=== PATIENT | female | born 1935 | race Caucasian/White ===

== ENCOUNTER → 2017-06-23 | Emergency (ER) | payer MEDICARE, OTHER, SELFPAY | PROVIDERS: Emergency Provider Emergency Medicine; Family Provider Nurse Practitioner Family; Visit Provider Emergency Medicine | DX: R11.2 Nausea with vomiting, unspecified (principal); E86.0 Dehydration; N28.9 Disorder of kidney and ureter, unspecified; J44.9 Chronic obstructive pulmonary disease, unspecified; I10 Essential (primary) hypertension; E78.5 Hyperlipidemia, unspecified; I50.9 Heart failure, unspecified; Z88.6 Allergy status to analgesic agent | CPT/HCPCS: 74022; 80053; 83735; 85025; 96361; 96365; 96366; 99284 ==

== ENCOUNTER 2017-07-02 11:30 | Inpatient (IN) | payer MEDICARE, MEDICAID, SELFPAY ==
[2017-07-02] VITALS (8 sets, daily range): BP systolic 101–147; BP diastolic 52–85; PULSE 65–128; RESP 16–23; TEMP 36.2–37.1; O2SAT 85–93; BMI 50.0; BMI 50.5
--- NOTE | 2017-07-02 11:45 | XR_ITS ---
XR chest portable HISTORY: Shortness of air, cough ITS.REASON: SOA ORDERING PHYSICIAN: Jacqui Bailey MD PATIENT AGE: 81 years COMPARISON: 03/10/2016 FINDINGS: There is diffuse bilateral consolidation in the mid and lower lung zones consistent with bilateral pneumonia. There is a somewhat nodular appearance of the right suprahilar region which may be related to pneumonia. Follow-up however is recommended mass cannot be excluded. Normal heart size. No obvious CHF. IMPRESSION: Bilateral pneumonia. Recommend follow until clear
--- NOTE | 2017-07-02 12:05 | HMH.EDSOB ---
ED Disposition Clinical Impression: Pneumonia Qualifiers: Pneumonia type: due to unspecified organism Laterality: bilateral Lung location: unspecified part of lung Qualified Code(s): J18.9 - Pneumonia, unspecified organism Disposition: Admitted As Inpatient Condition on Discharge: Good Referrals: Balwinder Scales APRN [Primary Care Provider] - - Critical Care Critical Care Time: No Attestation: On 07/02/17, the high probability of a clinically significant, sudden or life threatening deterioration of the following system(s) required my full and direct attention, intervention and personal management. The time I documented below is in addition to time spent performing reported procedures but includes the following listed in this critical care notation. Medical Decision Making Vital Signs: 07/02/17 11:36 07/02/17 12:26 07/02/17 12:38 Temperature 98.1 F Temperature Source Oral Pulse Rate 121 H 125 H Pulse Rate [Right Brachial] 65 Respiratory Rate 16 Blood Pressure [Right Arm] 101/63 Blood Pressure Mean [Right Arm] 75 Blood Pressure Source [Right Arm] Automatic Cuff Blood Pressure Position [Right Arm] Sitting 02 Sat by Pulse Oximetry 93 L Oxygen Delivery Method Nasal Cannula Oxygen Flow Rate (LPM) 2 - Lab Data Lab results reviewed: Yes: I reviewed the patient's lab results. Lab Results 07/02/17 11:45: WBC 3.0 L, RBC 3.61 L, Hgb 10.3 L, Hct 33.5 L, MCV 92.9, MCH 28.4, MCHC 30.6 L, RDW 15.5, Plt Count 83 L, MPV 9.4, Neut % (Auto) 49.1, Lymph % (Auto) 44.3, [place] % (Auto) 4.2, Eos % (Auto) 2.3, Baso % (Auto) 0.2, Neut # (Auto) 1.5 L, Lymph # (Auto) 1.3, [place] # (Auto) 0.1, Eos # (Auto) 0.1, Baso # (Auto) 0.0 07/02/17 11:45: Sodium 143, Potassium 3.4 L, Chloride 106, Carbon Dioxide 37 H, Anion Gap 3.4 L, BUN 17, Creatinine 0.99, Estimated Creat Clear 43, Estimated GFR 54 L, Est GFR ( Amer) > 60, Glucose 132 H, Calcium 8.4 L, Total Bilirubin 0.4, AST 22, ALT 15, Alkaline Phosphatase 111, Total Creatine Kinase 54, CK-MB (CK-2) 0.8, CK-MB (CK-2) Rel Index 1.5, Troponin I < 0.02, Total Protein 6.2 L, Albumin 2.8 L, Globulin 3.4 H, Albumin/Globulin Ratio 0.8 L 07/02/17 11:45: Lactic Acid 2.6 H 07/02/17 11:45: B-Natriuretic Peptide 168 H Result diagrams: 07/02/17 11:45 07/02/17 11:45 Orders (Tests/Meds): ED MEDICATIONS Discontinued Medications Generic Name Dose Route Start Last Admin Trade Name Freq PRN Reason Stop Dose Admin Albuterol/Ipratropium 3 ml 07/02/17 12:23 07/02/17 12:24 Duoneb 3ml Neb IH 07/02/17 12:24 3 ml ONCE ONE Administration Ceftriaxone Sodium 1 gm/ 50 mls @ 100 mls/hr 07/02/17 12:18 07/02/17 12:21 Sodium Chloride IV 07/02/17 12:47 100 mls/hr ONCE ONE Administration Methylprednisolone Sodium Succinate 125 mg 07/02/17 12:18 07/02/17 12:21 Solu-Medrol 125mg/2ml Vial IV 07/02/17 12:19 125 mg ONCE ONE Administration ORDERS Category Date Time Status Blood Culture Stat Micro 07/02/17 11:45 Received Sputum Culture & Gram Stain Stat Micro 07/02/17 12:35 Received - Radiology Data #2 Image(s): Chest Image Reviewed: Yes I reviewed the patient's radiology results, Yes I have reviewed radiologist's interpretation Preliminary Findings: Abnormal Bilateral middle and lower lobe infiltrates. No congestion. - ECG Data Tracing #1 Afib with motion trmor; borderline RBBB; nonspecific ST changes/strain laterally; QTc 416. - Physician Consults Physician Consulted: Balwinder Scales/Jacquelin Reason -: Admission Comment/Response: Admit to Dr. Roper per my d/w Balwinder Scales HOSPICE ART THERAPIST - Blu Inquiry Pt receiving controlled substance: No Resp/SOB HPI - General Chief Complaint: Shortness of Breath/Dyspnea Stated Complaint: SOA Time Seen by Provider: 07/02/17 12:06 Mode of Arrival: EMS Limitations: No Limitations Description of Symptoms (Recalled from ER Triage Doc. by RN): SOA - History of Present Illness Ox
[2017-07-02 12:10] LABS: Basophils % 0.2 % (0.1-2.0); Eosinophils # 0.1 K/mm3 (0.0-0.4); Eosinophils % 2.3 % (0.1-12.0); Hematocrit 33.5 % (37.0-47.0); Hemoglobin 10.3 g/dL (12.2-16.2); Lymphocytes # 1.3 K/mm3 (0.7-4.5); Lymphocytes % 44.3 K/mm3 (10-50); Mean Corpuscular HGB Conc 30.6 g/dL (31.8-35.4); Mean Corpuscular Hemoglobin 28.4 pg (27.0-31.2); Mean Corpuscular Volume 92.9 fl (81-99); Mean Platelet Volume 9.4 fl (7.4-10.4); Monocytes # 0.1 K/mm3 (0.1-1.0); Monocytes % 4.2 % (1.7-9.3); Neutrophils # 1.5 K/mm3 (1.8-7.8); Neutrophils % 49.1 % (37.0-80.0); Platelet Count 83 K/mm3 (142-424); Red Blood Count 3.61 M/mm3 (4.20-5.40); Red Cell Distribution Width 15.5 % (11.5-17.5)
--- NOTE | 2017-07-02 12:14 | ED_ITS ---
ED Disposition Clinical Impression: Pneumonia Qualifiers: Pneumonia type: due to unspecified organism Laterality: bilateral Lung location : unspecified part of lung Qualified Code(s): J18.9 - Pneumonia, unspecified organism Disposition: Admitted As Inpatient Condition on Discharge: Good Referrals: Balwinder Scales APRN [Primary Care Provider] - - Critical Care Critical Care Time: No Attestation: On 07/02/17, the high probability of a clinically significant, sudden or life threatening deterioration of the following system(s) required my full and direct attention, intervention and personal management. The time I documented below is in addition to time spent performing reported procedures but includes the following listed in this critical care notation. Medical Decision Making Vital Signs: 07/02/17 11:36 07/02/17 12:26 07/02/17 12:38 Temperature 98.1 F Temperature Source Oral Pulse Rate 121 H 125 H Pulse Rate [Right Brachial] 65 Respiratory Rate 16 Blood Pressure [Right Arm] 101/63 Blood Pressure Mean [Right Arm] 75 Blood Pressure Source [Right Arm] Automatic Cuff Blood Pressure Position [Right Arm] Sitting 02 Sat by Pulse Oximetry 93 L Oxygen Delivery Method Nasal Cannula Oxygen Flow Rate (LPM) 2 - Lab Data Lab results reviewed: Yes: I reviewed the patient's lab results. Lab Results 07/02/17 11:45: WBC 3.0 L, RBC 3.61 L, Hgb 10.3 L, Hct 33.5 L, MCV 92.9, MCH 28.4, MCHC 30.6 L, RDW 15.5, Plt Count 83 L, MPV 9.4, Neut % (Auto) 49.1, Lymph % (Auto) 44.3, [place] % (Auto) 4.2, Eos % (Auto) 2.3, Baso % (Auto) 0.2, Neut # ( Auto) 1.5 L, Lymph # (Auto) 1.3, [place] # (Auto) 0.1, Eos # (Auto) 0.1, Baso # ( Auto) 0.0 07/02/17 11:45: Sodium 143, Potassium 3.4 L, Chloride 106, Carbon Dioxide 37 H, Anion Gap 3.4 L, BUN 17, Creatinine 0.99, Estimated Creat Clear 43, Estimated GFR 54 L, Est GFR ( Amer) > 60, Glucose 132 H, Calcium 8.4 L, Total Bilirubin 0.4, AST 22, ALT 15, Alkaline Phosphatase 111, Total Creatine Kinase 54, CK-MB (CK-2) 0.8, CK-MB (CK-2) Rel Index 1.5, Troponin I < 0.02, Total Protein 6.2 L, Albumin 2.8 L, Globulin 3.4 H, Albumin/Globulin Ratio 0.8 L 07/02/17 11:45: Lactic Acid 2.6 H 07/02/17 11:45: B-Natriuretic Peptide 168 H Result diagrams: 07/02/17 11:45 07/02/17 11:45 Orders (Tests/Meds): ED MEDICATIONS Discontinued Medications Generic Name Dose Route Start Last Admin Trade Name Freq PRN Reason Stop Dose Admin Albuterol/Ipratropium 3 ml 07/02/17 12:23 07/02/17 12:24 Duoneb 3ml Neb IH 07/02/17 12:24 3 ml ONCE ONE Administration Ceftriaxone Sodium 1 gm/ 50 mls @ 100 mls/hr 07/02/17 12:18 07/02/17 12:21 Sodium Chloride IV 07/02/17 12:47 100 mls/hr ONCE ONE Administration Methylprednisolone Sodium Succinate 125 mg 07/02/17 12:18 07/02/17 12:21 Solu-Medrol 125mg/2ml Vial IV 07/02/17 12:19 125 mg ONCE ONE Administration ORDERS Category Date Time Status Blood Culture Stat Micro 07/02/17 11:45 Received Sputum Culture & Gram Stain Stat Micro 07/02/17 12:35 Received - Radiology Data #2 Image(s): Chest Image Reviewed: Yes I reviewed the patient's radiology results, Yes I have reviewed radiologist's interpretation Preliminary Findings: Abnormal Bilateral middle and lower lobe infiltrates. N
[2017-07-02 12:25] LABS: Lactic Acid 2.6 mmol/L (0.4-2.0)
[2017-07-02 12:26] LABS: Reflex Lactic Add Lactic Reflex
[2017-07-02 12:33] LABS: Alanine Aminotransferase 15 U/L (12-78); Albumin Level 2.8 gm/dL (3.4-5.0); Albumin/Globulin Ratio 0.8 (1.1-1.8); Alkaline Phosphatase 111 U/L (46-116); Anion Gap 3.4 mEq/L (5-15); Aspartate Amino Transferase 22 U/L (15-37); Bilirubin,Total 0.4 mg/dL (0.2-1.0); Blood Urea Nitrogen 17 mg/dL (7-18); CKMB Relative Index 1.5 U/L (0-4.0); Calcium 8.4 mg/dL (8.5-10.1); Carbon Dioxide 37 mmol/L (21.0-32.0); Chloride 106 mmol/L (98-107); Creatine Kinase 54 U/L (26-192); Creatine Kinase MB 0.8 mg/ml (0.0-3.6); Creatinine Clearance Estimated 43 mg/ml (0-300); Creatinine,Serum 0.99 mg/dL (0.55-1.02); Estimated Glomerular Filt Rate 54 ml/min (>60); GFR (African American) > 60 ML/MIN (>60); Globulin 3.4 gm/dl (1.3-3.2); Glucose 132 mg/dL (74-106); Potassium 3.4 mmoL/L (3.5-5.1); Sodium 143 mmol/L (136-145); Total Protein,Serum 6.2 gm/dL (6.4-8.2); Troponin I < 0.02 ng/ml (0.00-0.06)
[2017-07-02 16:13] LABS: Lactic Acid Follow Up (RFLX 1) 2.6 (0.4-2.0)
[2017-07-02 16:54] LABS: Reflex Lactic (2 hrs) No Lactic Reflex
--- NOTE | 2017-07-02 19:15 | PC.NURSE ---
REPORT RECEIVED FROM SON; PT FULL CODE
[2017-07-03] VITALS (12 sets, daily range): BP systolic 102–137; BP diastolic 54–71; PULSE 77–105; RESP 20–22; TEMP 36.2–37.7; O2SAT 95–100
--- NOTE | 2017-07-03 05:14 | PC.NURSE ---
PT ALERT AND ORIENTED. STATES NON-PRODUCTIVE COUGH. CALLS OUT FOR ASSIST. BECOMES SOA ON EXERTION. IV TO SALINE LOCK, PATENT. IV STEROIDS. PT ON XARELTO. ONCE PT FELL ASLEEP, SLEPT LONG INTERVALS. PT STABLE. WILL CONTINUE TO MONITOR. REPORT TO BE GIVEN TO ONCOMING NURSE.
--- NOTE | 2017-07-03 07:24 | PC.NURSE ---
Report given to Susu aCsillas WC/SRNA
[2017-07-03 07:32] LABS: Anion Gap 7.6 mEq/L (5-15); Blood Urea Nitrogen 19 mg/dL (7-18); Carbon Dioxide 34 mmol/L (21.0-32.0); Chloride 105 mmol/L (98-107); Creatinine Clearance Estimated 39 mL/min (0-300); Creatinine,Serum 1.09 mg/dL (0.55-1.02); Estimated Glomerular Filt Rate 48 ml/min (>60); GFR (African American) 59 ML/MIN (>60); Potassium 4.6 mmoL/L (3.5-5.1); Sodium 142 mmol/L (136-145)
[2017-07-03 07:33] LABS: Glucose 165 mg/dL (74-106)
[2017-07-03 08:04] LABS: Basophils % 0.3 % (0.1-2.0); Eosinophils % 1.5 % (0.1-12.0); Hemoglobin 10.4 g/dL (12.2-16.2); Lymphocytes # 0.3 K/mm3 (0.7-4.5); Mean Corpuscular HGB Conc 33.7 g/dL (31.8-35.4); Mean Corpuscular Hemoglobin 31.2 pg (27.0-31.2); Mean Corpuscular Volume 92.6 fl (81-99); Mean Platelet Volume 9.1 fl (7.4-10.4); Monocytes # 0.1 K/mm3 (0.1-1.0); Monocytes % 4.5 % (1.7-9.3); Neutrophils # 0.7 K/mm3 (1.8-7.8); Neutrophils % 69.7 % (37.0-80.0); Platelet Count 91 K/mm3 (142-424); Red Blood Count 3.35 M/mm3 (4.20-5.40); Red Cell Distribution Width 15.9 % (11.5-17.5); White Blood Count 1.1 K/mm3 (4.8-10.8)
--- NOTE | 2017-07-03 11:16 | HMH.HP ---
*Admission Date: 07/02/17 *Chief complaint: sob *History of present illness: this wf was seen in the ed with bilat cap with sob and was admitted for iv abx and fluids and needs o2 - pt with prod cough with no hemoptysis [facility] History I have reviewed the patient's past medical history: Yes - *Social History Educational Level: Attended College Alcohol Intake: never - Psychiatric History Expresses thoughts of harming self/others: None Suicide Plan Description: No Plan Review of Systems - Review of Systems Review of systems:: pertinent systems reviewed and negative unless documented below - Constitutional Reports fever(s), Reports lack of energy, Reports malaise, Reports weakness - Eyes Denies change in vision - ENT Reports dry mouth - *Cardiovascular Reports shortness of breath with activity, Denies chest pain at rest - *Respiratory Reports cough, Reports shortness of breath, Denies coughing up blood - *Gastrointestinal Denies abdominal pain - *Musculoskeletal Reports joint pain - Integumentary/Breasts Denies rash - *Neurologic Reports abnormal walking, Reports weakness, Denies seizure-like activity - Psychiatric Denies memory loss Meds Home Medications Medication Instructions Recorded Confirmed Type Albuterol Sulfate [Albuterol 1 vial IH Q6HP PRN 07/02/17 07/02/17 History 0.083% 2.5mg/3mL neb] Cholecalciferol (Vitamin D3) 50,000 unit PO DAILY 07/02/17 07/02/17 History [Vitamin D3 50,000 unit Cap] Fluoxetine HCl 40 mg PO DAILY 07/02/17 07/02/17 History Folic Acid [Folic Acid 1mg tablet] 1 mg PO DAILY 07/02/17 07/02/17 History Furosemide [Furosemide 80mg Tab] 80 mg PO DAILY 07/02/17 07/02/17 History Gabapentin [Gabapentin 300mg Cap] 300 mg PO TID 07/02/17 07/02/17 History Isosorbide Dinitrate 30 mg PO BID 07/02/17 07/02/17 History Levothyroxine Sodium 25 mcg PO DAILY 07/02/17 07/02/17 History [Levothyroxine 25mcg (0.025mg) Tab] Lisinopril [Lisinopril 20mg Tab] 20 mg PO DAILY 07/02/17 07/02/17 History Nystatin [Nystop] 10,000 pow TOPICAL BID 07/02/17 07/02/17 History Omeprazole [Omeprazole 20mg 20 mg PO DAILY 07/02/17 07/02/17 History Capsule] Rivaroxaban [Xarelto 10mg tablet] 15 mg PO DAILY 07/02/17 07/02/17 History Simvastatin [Zocor] 20 mg PO HS 07/02/17 07/02/17 History Tramadol HCl [Ultram 50mg 50 mg PO TIDP PRN 07/02/17 07/02/17 History tablet] Allergies Allergy/AdvReac Type Severity Reaction Status Date / Time morphine [MORPHINE] Allergy Unknown Verified 07/02/17 12:20 Exam Vital signs and Labs for Last 24 Hours: Temp Pulse Resp BP Pulse Ox 97.2 F L 97 H 22 134/64 100 07/03/17 08:00 07/03/17 08:00 07/03/17 08:00 07/03/17 08:00 07/03/17 08:00 Short CBC 07/03/17 Range/Units 07:00 WBC 1.1 L* D (4.8-10.8) K/mm3 Hgb 10.4 L (12.2-16.2) g/dL Hct 31.0 L (37.0-47.0) % Plt Count 91 L (142-424) K/mm3 BMP 07/03/17 07:00 Sodium 142 Potassium 4.6 D Chloride 105 Carbon Dioxide 34 H BUN 19 H Creatinine 1.09 H Glucose 165 H D I & O for Last 24 hours: Intake & Output 06/30/17 07/01/17 07/02/17 07/03/17 11:59 11:59 11:59 11:59 Intake Total 740 / 740 Output Total 650 / 650 Balance 90 / 90 no acute distress, obese - *Routine HEENT Exam Head: Present: normocephalic Eye: Present: EOMI, cataracts (chronic vision loss lt eye) ENT: Present: mucous membranes dry - *Routine Respiratory Exam Present: decreased breath sounds. Absent: respiratory distress - *Routine Cardiovascular Exam Present: murmur, S4 - *Routine Abdominal Exam Present: soft - *Routine Extremities Exam Present: edema. Absent: Emile's sign - *Routine Skin Exam Absent: rash - Routine Psychiatric Exam Present: normal affect, cooperative, good insight H&P: Result - Labs Labs: Short CBC 07/03/17 Range/Units 07:00 WBC 1.1 L* D (4.8-10.8) K/mm3 Hgb 10.4 L (12.2-16.2) g/dL Hct
--- NOTE | 2017-07-03 11:39 | HMH.PHAVTE ---
[facility] Pharmacy VTE Monitoring - Patient Demographics Admission date: 07/03/17 Report Date: 07/03/17 Time: 11:53 Allergies/Adverse Reactions: morphine [MORPHINE] Allergy (Unknown, Verified 07/02/17 12:20) Height: 1.68 m Weight: 143.392 kg Patient Problems: Current Active Problems Pneumonia (Acute) - VTE Risk Labs: VTE Related Lab Results Hgb 10.4 g/dL (12.2-16.2) L 07/03/17 07:00 Hct 31.0 % (37.0-47.0) L 07/03/17 07:00 Plt Count 91 K/mm3 (142-424) L 07/03/17 07:00 BUN 19 mg/dL (7-18) H 07/03/17 07:00 Creatinine 1.09 mg/dL (0.55-1.02) H 07/03/17 07:00 Estimated Creat Clear 39 mL/min (0-300) 07/03/17 07:00 - Prophylaxis Types of VTE Prophylaxis: Pharmacological Location of Applied Device: Not Applicable Pharmacologic Type: Other (XARELTO)
--- NOTE | 2017-07-03 11:44 | P.HP_ITS ---
*Admission Date: 07/02/17 *Chief complaint: sob *History of present illness: this wf was seen in the ed with bilat cap with sob and was admitted for iv abx and fluids and needs o2 - pt with prod cough with no hemoptysis [facility] History I have reviewed the patient's past medical history: Yes - *Social History Educational Level: Attended College Alcohol Intake: never - Psychiatric History Expresses thoughts of harming self/others: None Suicide Plan Description: No Plan Review of Systems - Review of Systems Review of systems:: pertinent systems reviewed and negative unless documented below - Constitutional Reports fever(s), Reports lack of energy, Reports malaise, Reports weakness - Eyes Denies change in vision - ENT Reports dry mouth - *Cardiovascular Reports shortness of breath with activity, Denies chest pain at rest - *Respiratory Reports cough, Reports shortness of breath, Denies coughing up blood - *Gastrointestinal Denies abdominal pain - *Musculoskeletal Reports joint pain - Integumentary/Breasts Denies rash - *Neurologic Reports abnormal walking, Reports weakness, Denies seizure-like activity - Psychiatric Denies memory loss Meds Home Medications Medication Instructions Recorded Confirmed Type Albuterol Sulfate [Albuterol 1 vial IH Q6HP PRN 07/02/17 07/02/17 History 0.083% 2.5mg/3mL neb] Cholecalciferol (Vitamin D3) 50,000 unit PO DAILY 07/02/17 07/02/17 History [Vitamin D3 50,000 unit Cap] Fluoxetine HCl 40 mg PO DAILY 07/02/17 07/02/17 History Folic Acid [Folic Acid 1mg tablet] 1 mg PO DAILY 07/02/17 07/02/17 History Furosemide [Furosemide 80mg Tab] 80 mg PO DAILY 07/02/17 07/02/17 History Gabapentin [Gabapentin 300mg Cap] 300 mg PO TID 07/02/17 07/02/17 History Isosorbide Dinitrate 30 mg PO BID 07/02/17 07/02/17 History Levothyroxine Sodium 25 mcg PO DAILY 07/02/17 07/02/17 History [Levothyroxine 25mcg (0.025mg) Tab] Lisinopril [Lisinopril 20mg Tab] 20 mg PO DAILY 07/02/17 07/02/17 History Nystatin [Nystop] 10,000 pow TOPICAL BID 07/02/17 07/02/17 History Omeprazole [Omeprazole 20mg 20 mg PO DAILY 07/02/17 07/02/17 History Capsule] Rivaroxaban [Xarelto 10mg tablet] 15 mg PO DAILY 07/02/17 07/02/17 History Simvastatin [Zocor] 20 mg PO HS 07/02/17 07/02/17 History Tramadol HCl [Ultram 50mg 50 mg PO TIDP PRN 07/02/17 07/02/17 History tablet] Allergies Allergy/AdvReac Type Severity Reaction Status Date / Time morphine [MORPHINE] Allergy Unknown Verified 07/02/17 12:20 Exam Vital signs and Labs for Last 24 Hours: Temp Pulse Resp BP Pulse Ox 97.2 F L 97 H 22 134/64 100 07/03/17 08:00 07/03/17 08:00 07/03/17 08:00 07/03/17 08:00 07/03/17 08:00 Short CBC 07/03/17 Range/Units 07:00 WBC 1.1 L* D (4.8-10.8) K/mm3 Hgb 10.4 L (12.2-16.2) g/dL Hct 31.0 L (37.0-47.0) % Plt Count 91 L (142-424) K/mm3 BMP 07/03/17 07:00 Sodium 142 Potassium 4.6 D Chloride 105 Carbon Dioxide 34 H BUN 19 H Creatinine 1.09 H Glucose 165 H D I & O for Last 24 hours: Intake & Output 06/30/17 07/01/17 07/02/1707/03
--- NOTE | 2017-07-03 11:53 | P.CONPHA_ITS ---
[facility] Pharmacy VTE Monitoring - Patient Demographics Admission date: 07/03/17 Report Date: 07/03/17 Time: 11:53 Allergies/Adverse Reactions: morphine [MORPHINE] Allergy (Unknown, Verified 07/02/17 12:20) Height: 1.68 m Weight: 143.392 kg Patient Problems: Current Active Problems Pneumonia (Acute) - VTE Risk Labs: VTE Related Lab Results Hgb 10.4 g/dL (12.2-16.2) L 07/03/17 07:00 Hct 31.0 % (37.0-47.0) L 07/03/17 07:00 Plt Count 91 K/mm3 (142-424) L 07/03/17 07:00 BUN 19 mg/dL (7-18) H 07/03/17 07:00 Creatinine 1.09 mg/dL (0.55-1.02) H 07/03/17 07:00 Estimated Creat Clear 39 mL/min (0-300) 07/03/17 07:00 - Prophylaxis Types of VTE Prophylaxis: Pharmacological Location of Applied Device: Not Applicable Pharmacologic Type: Other (XARELTO)
[2017-07-03 15:44] LABS: Microscopic, Urine URINE MICROSCOPIC (MICROSCOPIC)
[2017-07-03 15:45] LABS: Appearance,Urine SL CLOUDY (Clear); Bilirubin,Urine Negative (Negative); Blood, Urine Negative (Negative); Color,Urine YELLOW (Yellow); Glucose,Urine (UA) Negative (Negative); Ketones,Urine TRACE (Negative); Leukocyte Esterase,Urine Negative (Negative); Nitrate,Urine Negative (Negative); PH,Urine 5.5 (5.0-8.5); Protein,Urine Negative (Negative); Specific Gravity, Urine 1.025 (1.005-1.030); Urobilinogen,Urine 0.2 EU/dl (0.2)
--- NOTE | 2017-07-03 15:51 | PC.NURSE ---
FRANKLIN CATHETER LOT NUMBER- [id number]
[2017-07-03 15:59] LABS: Bacteria,Urine 4+ /lpf; Mucus,Urine 4+ /lpf; Squamous Epithelial Cell,Urine Occasional #/hpf (0-5)
--- NOTE | 2017-07-03 20:24 | PC.NURSE ---
NURSE NOTIFIED OF PTS TEMP
[2017-07-04] VITALS (15 sets, daily range): BP systolic 97–184; BP diastolic 47–90; PULSE 20–103; RESP 20–22; TEMP 36.1–36.8; O2SAT 93–97
--- NOTE | 2017-07-04 06:53 | PC.NURSE ---
PT STATED HER DAUGHTER WILL HELP HER WITH A BAT TODAY. NURSE NOTIFIED
--- NOTE | 2017-07-04 07:26 | PC.NURSE ---
REPORT GIVEN TO Susu VERDE WC/SRNA
--- NOTE | 2017-07-04 09:16 | PC.NURSE ---
NO COMPLAINTS STATED. 2LNC TOLERATED WELL. FARNKLIN CATHETER NOTED IN PLACE, PATENT AND DRAINING CLEAR/YELLOW URINE, DORIS AREA CDI WITH NO S/S OF INFECTION. SBA WITH TRANSER/AMBULATION. VSS. WILL CONTINUE TO MONITOR.
--- NOTE | 2017-07-04 09:46 | HMH.ACPN ---
Internal Medicine - PN: Subj *Date: 07/04/17 *Time: 09:46 Exam Vital signs and Labs for Last 24 Hours: Temp Pulse Resp BP Pulse Ox 97.8 F 20 L 20 146/61 96 07/04/17 08:37 07/04/17 08:37 07/04/17 08:37 07/04/17 08:37 07/04/17 08:37 Laboratory Results - last 24 hr 07/03/17 13:45: Urine Color Yellow, Urine Appearance Sl cloudy, Urine pH 5.5, Ur Specific [place] 1.025, Urine Protein Negative, Urine Glucose (UA) Negative, Urine Ketones Trace, Urine Blood Negative, Urine Nitrate Negative, Urine Bilirubin Negative, Urine Urobilinogen 0.2, Ur Leukocyte Esterase Negative, Urine WBC 3-5, Ur Squamous Epith Cells Occasional, Urine Bacteria 4+, Urine Mucus 4+ I & O for Last 24 hours: Intake & Output 07/01/17 07/02/17 07/03/17 07/04/17 11:59 11:59 11:59 11:59 Intake Total 740 / 740 720 / 720 Output Total 650 / 650 1650 / 1650 Balance 90 / 90 -930 / -930 Microbiology Reports for the Last 24 Hours: Microbiology 07/03/17 13:45 Urine,Catheterized Urine Culture - Preliminary NO GROWTH AFTER 24 HOURS - *Routine HEENT Exam Head: Present: normocephalic Eye: Present: PERRL ENT: Present: mucous membranes moist - *Routine Neck Exam Present: supple, full ROM - *Routine Respiratory Exam Present: wheezes, diminished air movement - *Routine Cardiovascular Exam Present: RRR - *Routine Abdominal Exam Present: soft, normoactive bowel sounds - *Routine Neurological Exam Present: alert, oriented X3 Assessment and Plan (1) CAP (community acquired pneumonia) Current visit: Yes Status: Acute Qualifiers: Laterality: unspecified laterality Qualified Code(s): J18.9 - Pneumonia, unspecified organism Category: Medical Code(s): J18.9 - Pneumonia, unspecified organism - Assessment and plan all Dx Assessment and Plan for all problems:: contiune care
[2017-07-05] VITALS (11 sets, daily range): BP systolic 121–136; BP diastolic 53–78; PULSE 85–107; RESP 20–22; TEMP 36.4–36.9; O2SAT 87–95; BMI 50.1
--- NOTE | 2017-07-05 03:50 | PC.NURSE ---
NO COMPLAINTS STATED. 4LNC TOLERATED WELL. SCATTERED WHEEZING AND RHONCHI ON AUSCULTATION OF LUNG SOUNDS. FRANKLIN CATHETER NOTED PATENT AND DRAINING CLEAR/YELLOW URINE. DORIS AREA CDI, WITH NO S/S OF INFECTION NOTED. BILAT FEET NOTED WITH PURPLE COLORATION, COOL PER PALPATION AND WITH +1 PEDAL PULSES, PT WAS ABLE TO MOVE FEET. PT STATED YEAH I KNOW THEY HAVE BEEN LIKE THAT FOR A WHILE, THE DOCTOR TOLD ME THAT I HAVE POOR BLOOD FLOW IN MY LEGS AND FEET. VSS. WILL CONTINUE TO MONITOR.
--- NOTE | 2017-07-05 04:34 | PC.NURSE ---
TOLERATED REVERSE ISOLATION WELL.
[2017-07-05 07:03] LABS: Hemoglobin 9.3 g/dL (12.2-16.2); Red Blood Count 3.27 M/mm3 (4.20-5.40); White Blood Count 3.3 K/mm3 (4.8-10.8)
[2017-07-05 07:04] LABS: Basophils % 0.1 % (0.1-2.0); Eosinophils % 0.3 % (0.1-12.0); Hematocrit 29.9 % (37.0-47.0); Lymphocytes # 0.5 K/mm3 (0.7-4.5); Lymphocytes % 14.6 K/mm3 (10-50); Mean Corpuscular HGB Conc 31.1 g/dL (31.8-35.4); Mean Corpuscular Hemoglobin 28.5 pg (27.0-31.2); Mean Corpuscular Volume 91.4 fl (81-99); Monocytes # 0.2 K/mm3 (0.1-1.0); Monocytes % 4.6 % (1.7-9.3); Neutrophils # 2.6 K/mm3 (1.8-7.8); Neutrophils % 80.4 % (37.0-80.0); Platelet Count 85 K/mm3 (142-424); Red Cell Distribution Width 15.1 % (11.5-17.5)
--- NOTE | 2017-07-05 07:21 | PC.NURSE ---
REPORT GIVEN TO Dyllan OLIVEIRA
[2017-07-05 07:22] LABS: Alanine Aminotransferase 41 U/L (12-78); Albumin Level 2.6 gm/dL (3.4-5.0); Albumin/Globulin Ratio 0.7 (1.1-1.8); Alkaline Phosphatase 84 U/L (46-116); Anion Gap 7.8 mEq/L (5-15); Aspartate Amino Transferase 55 U/L (15-37); Bilirubin,Total 0.3 mg/dL (0.2-1.0); Blood Urea Nitrogen 28 mg/dL (7-18); Calcium 9.1 mg/dL (8.5-10.1); Carbon Dioxide 38 mmol/L (21.0-32.0); Chloride 101 mmol/L (98-107); Creatinine Clearance Estimated 34 mL/min (0-300); Creatinine,Serum 1.25 mg/dL (0.55-1.02); Estimated Glomerular Filt Rate 41 ml/min (>60); GFR (African American) 50 ML/MIN (>60); Globulin 3.5 gm/dl (1.3-3.2); Glucose 159 mg/dL (74-106); Potassium 4.8 mmoL/L (3.5-5.1); Sodium 142 mmol/L (136-145); Total Protein,Serum 6.1 gm/dL (6.4-8.2)
--- NOTE | 2017-07-05 07:36 | PC.NURSE ---
REPORT GIVEN TO HONORIO COELHO AT THIS TIME
--- NOTE | 2017-07-05 08:44 | HMH.ACPN ---
Internal Medicine - PN: Subj *Date: 07/05/17 *Time: 08:44 Interval history: doing better Exam Vital signs and Labs for Last 24 Hours: Temp Pulse Resp BP Pulse Ox 97.7 F 95 H 22 136/74 93 L 07/05/17 04:13 07/05/17 05:59 07/05/17 04:13 07/05/17 04:13 07/05/17 05:59 Laboratory Results - last 24 hr 07/05/17 06:15: WBC 3.3 L D, RBC 3.27 L, Hgb 9.3 L, Hct 29.9 L, MCV 91.4, MCH 28.5, MCHC 31.1 L, RDW 15.1, Plt Count 85 L, MPV 9.0, Neut % (Auto) 80.4 H, Lymph % (Auto) 14.6, [place] % (Auto) 4.6, Eos % (Auto) 0.3, Baso % (Auto) 0.1, Neut # (Auto) 2.6, Lymph # (Auto) 0.5 L, [place] # (Auto) 0.2, Eos # (Auto) 0.0, Baso # (Auto) 0.0 07/05/17 06:15: Sodium 142, Potassium 4.8, Chloride 101, Carbon Dioxide 38 H, Anion Gap 7.8, BUN 28 H D, Creatinine 1.25 H, Estimated Creat Clear 34, Estimated GFR 41 L, Est GFR ( Amer) 50 L, Glucose 159 H, Calcium 9.1, Total Bilirubin 0.3, AST 55 H D, ALT 41 D, Alkaline Phosphatase 84, Total Protein 6.1 L, Albumin 2.6 L, Globulin 3.5 H, Albumin/Globulin Ratio 0.7 L I & O for Last 24 hours: Intake & Output 07/02/17 07/03/17 07/04/17 07/05/17 11:59 11:59 11:59 11:59 Intake Total 740 / 740 720 / 720 Output Total 650 / 650 1650 / 1650 600 / 600 Balance 90 / 90 -930 / -930 -600 / -600 Microbiology Reports for the Last 24 Hours: Microbiology 07/03/17 13:45 Urine,Catheterized Urine Culture - Final NO GROWTH AFTER 48 HOURS - Constitutional no acute distress, morbidly obese - *Routine HEENT Exam Head: Present: normocephalic Eye: Present: EOMI, PERRL ENT: Present: mucous membranes dry - *Routine Neck Exam Absent: JVD - *Routine Respiratory Exam Present: decreased breath sounds. Absent: respiratory distress - *Routine Cardiovascular Exam Present: murmur, S4 - *Routine Abdominal Exam Present: soft - *Routine Extremities Exam Present: edema. Absent: calf tenderness - *Routine Skin Exam Present: intact, cyanosis - *Routine Neurological Exam Present: alert, oriented X3 - Routine Psychiatric Exam Present: normal affect Assessment and Plan (1) CAP (community acquired pneumonia) Current visit: Yes Status: Acute Qualifiers: Laterality: unspecified laterality Qualified Code(s): J18.9 - Pneumonia, unspecified organism Category: Medical Code(s): J18.9 - Pneumonia, unspecified organism (2) A-fib Current visit: Yes Status: Chronic Qualifiers: Atrial fibrillation type: chronic Qualified Code(s): I48.2 - Chronic atrial fibrillation Category: Medical Code(s): I48.91 - Unspecified atrial fibrillation (3) Pancytopenia Current visit: Yes Status: Chronic Category: Medical Code(s): D61.818 - Other pancytopenia (4) CHF (congestive heart failure) Current visit: Yes Status: Chronic Qualifiers: Congestive heart failure type: combined Congestive heart failure chronicity: acute on chronic Qualified Code(s): I50.43 - Acute on chronic combined systolic (congestive) and diastolic (congestive) heart failure Category: Medical Code(s): I50.9 - Heart failure, unspecified
--- NOTE | 2017-07-05 08:49 | CA_ITS ---
PROCEDURE: 2-D M-mode and color Doppler study INDICATIONS FOR THE TEST: Chest pain COPD Heart Murmur+ Tobacco Smoking Palpitations Fatigue Syncope Edema Hypertension+Diabetes Mellitus Rheumatic Fever SOB+BANERJEE Obesity+Hyperlipidemia Family History HD Additional History afib PATIENT INFORMATION HEIGHT: 66 WEIGHT:312 GENDER: Female B/P:136/74 2-D/M-MODE INTERPRETATION: 2-D MEASUREMENTS OBSERVED VALUES IN CMS Right Ventricular Dimension (RVDd) 3.6 Interventricular Septum (Thickness)(IVsd) 1.6 Left Ventricular Internal Dimensions(LVIDd) 4.7 Left Ventricular Posterior Wall (Thickness)(LVPWd) 1.2 Aortic Root 3.5 Aortic Cusp Separation 1.9 Left Atrial Dimensions (LAD) 5.4 2D 1. Left atrium is moderately enlarged, left ventricle is normal size, there is mild concentric left ventricular hypertrophy, visually estimated ejection fraction 55% with no obvious regional wall motion abnormality. 2. The right atrium and right ventricle are moderately enlarged, contractility of the right ventricle is mildly reduced. 3. The aortic valve is minimally thickened and fibrosed. 4. The mitral and tricuspid valve leaflets are minimally thickened. 5. The pulmonic valve is poorly visualized. 6. No significant pericardial effusion noted. DOPPLER INTERROGATION: Doppler interrogation of the aortic, mitral and tricuspid valvular presence of mild mitral and tricuspid regurgitation, tricuspid regurgitant jet velocity is insufficient for calculation of the right ventricular systolic pressure. CONCLUSION: 1. Moderate biatrial enlargement, normal left ventricular size, mild concentric left ventricular hypertrophy, visually estimated ejection fraction 55% with no obvious regional wall motion abnormality. 2. Moderately enlarged right ventricle with mild reduced contractility. 3. Mild mitral and tricuspid regurgitation. 4. No significant pericardial effusion noted.
[2017-07-05 09:32] LABS: Troponin I < 0.02 ng/ml (0.00-0.06)
[2017-07-05 09:37] LABS: Thyroid Stimulating Hormone 0.44 uIU/ml (0.358-3.740)
--- NOTE | 2017-07-05 09:38 | HMH.CARDCON2 ---
History of Present Illness Consult date: 07/05/17 Requesting physician: Mike Roper Consult reason: congestive heart failure Chief complaint: SOA History of present illness: 82-year-old white female with history of hypertension and congestive heart failure was admitted for pneumonia. Patient relates a 1-2 week history of increasing shortness of breath after getting over the flu with nausea and diarrhea. She relates she was unable to take her diuretics and began noticing increasing weight and shortness of breath. He denies any chest pain, previous myocardial infarction or recent stress test. Patient was seen in the hospital and in the office in 2016 but has not followed up since then. She relates limited mobility, I walk from my bedroom to the living room and that is my stress test. Ambulation limited by knee problems [id number]. Cardiology consulted for evaluation and recommendations. Review of Systems - *Cardiovascular Reports shortness of breath with activity - *Respiratory Reports chest congestion, Reports cough, Reports shortness of breath, Reports shortness of breath with activity, Reports wheezing - *Musculoskeletal Reports joint pain - *Neurologic Reports abnormal walking, Reports weakness, Denies seizure-like activity, Denies memory loss [facility] History Medical History: Reports:: Atrial Fibrillation, Congestive Heart Failure, Chronic Obstructive Pulmonary Disease (COPD), Hypertension - *Social History Educational Level: Attended College Alcohol Intake: never - Psychiatric History Expresses thoughts of harming self/others: None Suicide Plan Description: No Plan Meds Home Medications Medication Instructions Recorded Confirmed Type Albuterol Sulfate [Albuterol 1 vial IH Q6HP PRN 07/02/17 07/02/17 History 0.083% 2.5mg/3mL neb] Cholecalciferol (Vitamin D3) 50,000 unit PO DAILY 07/02/17 07/02/17 History [Vitamin D3 50,000 unit Cap] Fluoxetine HCl 40 mg PO DAILY 07/02/17 07/02/17 History Folic Acid [Folic Acid 1mg tablet] 1 mg PO DAILY 07/02/17 07/02/17 History Furosemide [Furosemide 80mg Tab] 80 mg PO DAILY 07/02/17 07/02/17 History Gabapentin [Gabapentin 300mg Cap] 300 mg PO TID 07/02/17 07/02/17 History Isosorbide Dinitrate 30 mg PO BID 07/02/17 07/02/17 History Levothyroxine Sodium 25 mcg PO DAILY 07/02/17 07/02/17 History [Levothyroxine 25mcg (0.025mg) Tab] Lisinopril [Lisinopril 20mg Tab] 20 mg PO DAILY 07/02/17 07/02/17 History Nystatin [Nystop] 10,000 pow TOPICAL BID 07/02/17 07/02/17 History Omeprazole [Omeprazole 20mg 20 mg PO DAILY 07/02/17 07/02/17 History Capsule] Rivaroxaban [Xarelto 10mg tablet] 15 mg PO DAILY 07/02/17 07/02/17 History Simvastatin [Zocor] 20 mg PO HS 07/02/17 07/02/17 History Tramadol HCl [Ultram 50mg 50 mg PO TIDP PRN 07/02/17 07/02/17 History tablet] Allergies Allergy/AdvReac Type Severity Reaction Status Date / Time morphine [MORPHINE] Allergy Unknown Verified 07/02/17 12:20 Exam Vital signs and Labs for Last 24 Hours: Temp Pulse Resp BP Pulse Ox 97.6 F 91 H 22 133/78 87 L 07/05/17 08:40 07/05/17 08:40 07/05/17 08:40 07/05/17 08:40 07/05/17 08:40 Laboratory Results - last 24 hr 07/05/17 06:15: WBC 3.3 L D, RBC 3.27 L, Hgb 9.3 L, Hct 29.9 L, MCV 91.4, MCH 28.5, MCHC 31.1 L, RDW 15.1, Plt Count 85 L, MPV 9.0, Neut % (Auto) 80.4 H, Lymph % (Auto) 14.6, [place] % (Auto) 4.6, Eos % (Auto) 0.3, Baso % (Auto) 0.1, Neut # (Auto) 2.6, Lymph # (Auto) 0.5 L, [place] # (Auto) 0.2, Eos # (Auto) 0.0, Baso # (Auto) 0.0 07/05/17 06:15: Sodium 142, Potassium 4.8, Chloride 101, Carbon Dioxide 38 H, Anion Gap 7.8, BUN 28 H D, Creatinine 1.25 H, Estimated Creat Clear 34, Estimated GFR 41 L, Est GFR ( Amer) 50 L, Glucose 159 H, Calcium 9.1, Total Bilirubin 0.3, AST 55 H D, ALT 41 D, Alkaline Phosphatase 84, Total Protein 6.1 L, Albumin 2.6 L, Globulin 3.5 H, Albumin/Globulin Ratio 0.7 L I & O for Last 24 hours: Intak
--- NOTE | 2017-07-05 09:43 | P.CONS_ITS ---
History of Present Illness Consult date: 07/05/17 Requesting physician: Mike Roper Consult reason: congestive heart failure Chief complaint: SOA History of present illness: 82-year-old white female with history of hypertension and congestive heart failure was admitted for pneumonia. Patient relates a 1-2 week history of increasing shortness of breath after getting over the flu with nausea and diarrhea. She relates she was unable to take her diuretics and began noticing increasing weight and shortness of breath. He denies any chest pain, previous myocardial infarction or recent stress test. Patient was seen in the hospital and in the office in 2016 but has not followed up since then. She relates limited mobility, I walk from my bedroom to the living room and that is my stress test. Ambulation limited by knee problems [id number]. Cardiology consulted for evaluation and recommendations. Review of Systems - *Cardiovascular Reports shortness of breath with activity - *Respiratory Reports chest congestion, Reports cough, Reports shortness of breath, Reports shortness of breath with activity, Reports wheezing - *Musculoskeletal Reports joint pain - *Neurologic Reports abnormal walking, Reports weakness, Denies seizure-like activity, Denies memory loss [facility] History Medical History: Reports:: Atrial Fibrillation, Congestive Heart Failure, Chronic Obstructive Pulmonary Disease (COPD), Hypertension - *Social History Educational Level: Attended College Alcohol Intake: never - Psychiatric History Expresses thoughts of harming self/others: None Suicide Plan Description: No Plan Meds Home Medications Medication Instructions Recorded Confirmed Type Albuterol Sulfate [Albuterol 1 vial IH Q6HP PRN 07/02/17 07/02/17 History 0.083% 2.5mg/3mL neb] Cholecalciferol (Vitamin D3) 50,000 unit PO DAILY 07/02/17 07/02/17 History [Vitamin D3 50,000 unit Cap] Fluoxetine HCl 40 mg PO DAILY 07/02/17 07/02/17 History Folic Acid [Folic Acid 1mg tablet] 1 mg PO DAILY 07/02/17 07/02/17 History Furosemide [Furosemide 80mg Tab] 80 mg PO DAILY 07/02/17 07/02/17 History Gabapentin [Gabapentin 300mg Cap] 300 mg PO TID 07/02/17 07/02/17 History Isosorbide Dinitrate 30 mg PO BID 07/02/17 07/02/17 History Levothyroxine Sodium 25 mcg PO DAILY 07/02/17 07/02/17 History [Levothyroxine 25mcg (0.025mg) Tab] Lisinopril [Lisinopril 20mg Tab] 20 mg PO DAILY 07/02/17 07/02/17 History Nystatin [Nystop] 10,000 pow TOPICAL BID 07/02/17 07/02/17 History Omeprazole [Omeprazole 20mg 20 mg PO DAILY 07/02/17 07/02/17 History Capsule] Rivaroxaban [Xarelto 10mg tablet] 15 mg PO DAILY 07/02/17 07/02/17 History Simvastatin [Zocor] 20 mg PO HS 07/02/17 07/02/17 History Tramadol HCl [Ultram 50mg 50 mg PO TIDP PRN 07/02/17 07/02/17 History tablet] Allergies Allergy/AdvReac Type Severity Reaction Status Date / Time morphine [MORPHINE] Allergy Unknown Verified 07/02/17 12:20 Exam Vital signs and Labs for Last 24 Hours: Temp Pulse Resp BP Pulse Ox 97.6 F 91 H 22 133/78 87 L 07/05/17 08:40 07/05/17 08:40 07/05/17 08:40 07/05/17 08:40 07/05/17 08:40 Laboratory Results - last 24 hr 07/05/17 06:15: WBC 3.3 L D, RBC 3.27 L, Hgb 9.3 L, Hct 29.9 L, MCV 91.4, MCH 28.5, MCHC 31.1 L, RDW 15.1, Plt Count 85 L, MPV 9.0, Neut % (Auto) 80.4 H, Lymph % (Auto) 14.6, Mon
--- NOTE | 2017-07-05 09:43 | PC.NURSE ---
I am documenting information provided by REJI Shook on downtime forms for 07/04/17.
--- NOTE | 2017-07-05 11:16 | HMH.PTEV ---
Physical Therapy Evaluation Rehab PT IP Evaluation Start: 07/05/17 08:43 Freq: ONCE Status: Active Protocol: Document 07/05/17 10:10 PHORPAPITO (Rec: 07/05/17 11:15 PHORNE [id number]) Subjective/History History History 82 yof adm to [facility] with weakness. 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 Subjective Subjective Pt reports feeling better this am. Rehab PT IP Eval Objective Appearance Patient Behavior Appropriate Cooperative Patient Orientation Person Place Time Difficulty following instructions none Speech Pattern Clear Ambulation Patient Able to Ambulate Yes Ambulation Observation IP General Gait Pattern Observation Wide Based Gait Shuffling Step Ambulation Distance (feet) 6 Ambulation Assistive Device Rolling Walker Balance Ability to Arise Able, uses arms to help Sitting Balance Steady, safe Standing Balance Steady, wide stance Dynamic Sitting Balance Ability Normal Dynamic Standing Balance Ability Normal Transfers Bed Transfer Ability Supervision/Stand by Chair Transfer Ability Supervision/Stand by Sit to Stand Bed Transfer Ability Supervision/Stand by Sit to Stand Chair Transfer Ability Supervision/Stand by Rehab PT IP prob,goals,plan Problems Date of Evaluation: 07/05/17 Rehab Potential Rehab Potential Good Discharge Plan PT Discharge Plan Pt is appropriate to return home with assist, currently at baseline for all mobiliy. G -code Required Yes Eval Complexity Eval Charge Codes 03639 - Moderate Complexity G Codes PT Current Status Mobility PT Current Status Modifier CJ-At least 20% but less than 40% impaired, limited or restricted PT Goal Status Mobility PT Goal Status Modifer CJ-At least 20% but less than 40% impaired, limited or restricted PHYSICIAN CERTIFICATION: I certify the specified therapy services for Emiliana Ortiz are required, authorized, and reviewed every 30 days.
--- NOTE | 2017-07-05 14:42 | PC.NURSE ---
Addendum entered by Katheryn Jeronimo RN 07/05/17 17:23: Scribing only per Priya Jeronimo RN. Original Note: Downtime documentation from 07/04/17 from downtime documentation forms for Temi Mcleod RN per Ivette Jeronimo RN.
--- NOTE | 2017-07-05 16:16 | SW/DCPLANNER ---
Spoke with patient this afternoon regarding discharge plans. Patient stated that she lives at home with her daughter and son-in-law. Patient stated that she has everything she needs at home including: BSC, walker, cane, and wheel-chair. Patient stated she has no other needs. I will follow up with patient at time of discharge to assist with any needs/new orders.
[2017-07-06 00:10] VITALS: BP 118/70; PULSE 85; RESP 22; TEMP 36.3; O2SAT 96
[2017-07-06 04:04] VITALS: BP 120/53; PULSE 98; RESP 18; TEMP 36.8; O2SAT 93
--- NOTE | 2017-07-06 04:58 | PC.NURSE ---
NO ACUTE CHANGES NOTED. PT HAS DENIED ANY DISCOMFORT OR PAIN. SHE IS CURRENTLY ON 4L @ 93% LUNGS NOTED TO HAVE WHEEZING AND RHONCHI T/O. V/S REMAIN STABLE. NO OTHER CONCERNS AT THIS TIME. WILL CONTINUE TO MONITOR.
--- NOTE | 2017-07-06 06:14 | PC.NURSE ---
PT was offered a bath. pt stated she had a bath per daughter on day shift. nurse notified
[2017-07-06 07:10] LABS: Alanine Aminotransferase 40 U/L (12-78); Albumin Level 2.3 gm/dL (3.4-5.0); Albumin/Globulin Ratio 0.7 (1.1-1.8); Alkaline Phosphatase 72 U/L (46-116); Anion Gap 7.2 mEq/L (5-15); Aspartate Amino Transferase 27 U/L (15-37); Bilirubin,Total 0.3 mg/dL (0.2-1.0); Blood Urea Nitrogen 27 mg/dL (7-18); Calcium 9.2 mg/dL (8.5-10.1); Chloride 103 mmol/L (98-107); Creatinine Clearance Estimated 41 mL/min (0-300); Creatinine,Serum 1.03 mg/dL (0.55-1.02); Estimated Glomerular Filt Rate 52 ml/min (>60); GFR (African American) 62 ML/MIN (>60); Globulin 3.4 gm/dl (1.3-3.2); Glucose 179 mg/dL (74-106); Potassium 5.2 mmoL/L (3.5-5.1); Sodium 145 mmol/L (136-145); Total Protein,Serum 5.7 gm/dL (6.4-8.2)
[2017-07-06 07:45] LABS: Carbon Dioxide 40 mmol/L (21.0-32.0)
--- NOTE | 2017-07-06 07:54 | PC.NURSE ---
REPORT HANDOFF TO REBEKA
--- NOTE | 2017-07-06 07:54 | HMH.CARDPN2 ---
Subjective PN (PG) Date: 07/06/17 Time: 07:54 Principal diagnosis: SOA Interval history: Breathing better. No complaints of chest pain. Lieing flat in bed in NAD. Ready to go home. PN Exam ([facility] Owned) Vital signs: Temp Pulse Resp BP Pulse Ox 98.2 F 98 H 18 120/53 93 L 07/06/17 04:04 07/06/17 04:04 07/06/17 04:04 07/06/17 04:04 07/06/17 04:04 - Constitutional no acute distress - Routine Respiratory Exam Present: wheezes, diminished air movement - Routine Cardiovascular Exam Present: irregularly irregular - Routine Abdominal Exam Present: soft - Routine Extremities Exam Absent: edema - Routine Neurological Exam Present: alert, oriented X3, moving all extremities - Urinary Catheter Management Stringer Cath placed during this visit: yes Urethral indwelling: No Reason for continuing: Measure accurate output Insertion date: 07/03/17 Insertion time: 13:40 A/P Progress Note ([facility] Owned) (1) CHF (congestive heart failure) Status: Chronic Assessment and plan: Improved with IV lasix. Continue home lasix 80 mg daily. Discussed obtaining outpatient karson myoview to evaluate for CAD. Will schedule when she comes in for follow up in 1-2 wks. Current Visit: Yes (2) A-fib Status: Chronic Assessment and plan: On chronic anticoagulation. Current Visit: Yes (3) CAP (community acquired pneumonia) Status: Acute Current Visit: Yes (4) Pneumonia Status: Acute Current Visit: Yes (5) Morbid obesity with BMI of 50.0-59.9, adult Status: Acute Current Visit: Yes (6) Pancytopenia Status: Chronic Current Visit: Yes (7) Hypertension Status: Acute Assessment and plan: Improved control with combo of cardizem and irbesartan. Echo shows preserved LVEF without significant valve abnormalities. No wall motion abnormalities. Current Visit: Yes
--- NOTE | 2017-07-06 07:58 | P.PN_ITS ---
Subjective PN (PG) Date: 07/06/17 Time: 07:54 Principal diagnosis: SOA Interval history: Breathing better. No complaints of chest pain. Lieing flat in bed in NAD. Ready to go home. PN Exam ([facility] Owned) Vital signs: Temp Pulse Resp BP Pulse Ox 98.2 F 98 H 18 120/53 93 L 07/06/17 04:04 07/06/17 04:04 07/06/17 04:04 07/06/17 04:04 07/06/17 04:04 - Constitutional no acute distress - Routine Respiratory Exam Present: wheezes, diminished air movement - Routine Cardiovascular Exam Present: irregularly irregular - Routine Abdominal Exam Present: soft - Routine Extremities Exam Absent: edema - Routine Neurological Exam Present: alert, oriented X3, moving all extremities - Urinary Catheter Management Stringer Cath placed during this visit: yes Urethral indwelling: No Reason for continuing: Measure accurate output Insertion date: 07/03/17 Insertion time: 13:40 A/P Progress Note ([facility] Owned) (1) CHF (congestive heart failure) Status: Chronic Assessment and plan: Improved with IV lasix. Continue home lasix 80 mg daily. Discussed obtaining outpatient karson myoview to evaluate for CAD. Will schedule when she comes in for follow up in 1-2 wks. Current Visit: Yes (2) A-fib Status: Chronic Assessment and plan: On chronic anticoagulation. Current Visit: Yes (3) CAP (community acquired pneumonia) Status: Acute Current Visit: Yes (4) Pneumonia Status: Acute Current Visit: Yes (5) Morbid obesity with BMI of 50.0-59.9, adult Status: Acute Current Visit: Yes (6) Pancytopenia Status: Chronic Current Visit: Yes (7) Hypertension Status: Acute Assessment and plan: Improved control with combo of cardizem and irbesartan. Echo shows preserved LVEF without significant valve abnormalities. No wall motion abnormalities. Current Visit: Yes
[2017-07-06 08:00] LABS: Basophils % 0.3 % (0.1-2.0); Eosinophils % 0.4 % (0.1-12.0); Hematocrit 28.4 % (37.0-47.0); Hemoglobin 8.9 g/dL (12.2-16.2); Lymphocytes # 0.4 K/mm3 (0.7-4.5); Lymphocytes % 13.6 K/mm3 (10-50); Mean Corpuscular HGB Conc 31.5 g/dL (31.8-35.4); Mean Corpuscular Hemoglobin 28.1 pg (27.0-31.2); Mean Corpuscular Volume 89.1 fl (81-99); Mean Platelet Volume 9.1 fl (7.4-10.4); Monocytes # 0.1 K/mm3 (0.1-1.0); Monocytes % 5.2 % (1.7-9.3); Neutrophils # 2.3 K/mm3 (1.8-7.8); Neutrophils % 80.6 % (37.0-80.0); Platelet Count 74 K/mm3 (142-424); Red Blood Count 3.19 M/mm3 (4.20-5.40); White Blood Count 2.8 K/mm3 (4.8-10.8)
--- NOTE | 2017-07-06 08:23 | HMH.DCSUM ---
General - General Admission date: 07/02/17 Discharge date: 07/06/17 HPI HPI: this wf was seen in the ed with bilat cap with sob and was admitted for iv abx and fluids and needs o2 - pt with prod cough with no hemoptysis Objective Vital signs: Temp Pulse Resp BP Pulse Ox 98.2 F 98 H 18 120/53 93 L 07/06/17 04:04 07/06/17 04:04 07/06/17 04:04 07/06/17 04:04 07/06/17 04:04 no acute distress - *Routine HEENT Exam Head: Present: normocephalic Eye: Present: PERRL ENT: Present: mucous membranes moist - *Routine Neck Exam Present: full ROM - *Routine Respiratory Exam Present: wheezes - *Routine Cardiovascular Exam Present: RRR - *Routine Abdominal Exam Present: soft, normoactive bowel sounds Hospital Course Hospital Course: cap- iv antibotics,o2 and monitor of vitals.today pt states she feels better and is ready to go home. Results Labs on day of discharge: Labs from last 24 hours 07/06/17 07/05/17 07/05/17 06:20 06:28 06:28 Sodium 145 Potassium 5.2 H Chloride 103 Carbon Dioxide 40 H Anion Gap 7.2 BUN 27 H Creatinine 1.03 H Estimated Creat Clear 41 Estimated GFR 52 L Est GFR ( Amer) 62 D Glucose 179 H Calcium 9.2 Total Bilirubin 0.3 AST 27 D ALT 40 Alkaline Phosphatase 72 Troponin I < 0.02 B-Natriuretic Peptide 156 H Total Protein 5.7 L Albumin 2.3 L D Globulin 3.4 H Albumin/Globulin Ratio 0.7 L TSH 0.44 DS: Diagnosis - Discharge Diagnosis (1) CAP (community acquired pneumonia) Status: Acute Meds Home Medications Medication Instructions Recorded Confirmed Type Albuterol Sulfate [Albuterol 1 vial IH Q6HP PRN 07/02/17 07/02/17 History 0.083% 2.5mg/3mL neb] Cholecalciferol (Vitamin D3) 50,000 unit PO DAILY 07/02/17 07/02/17 History [Vitamin D3 50,000 unit Cap] Fluoxetine HCl 40 mg PO DAILY 07/02/17 07/02/17 History Folic Acid [Folic Acid 1mg tablet] 1 mg PO DAILY 07/02/17 07/02/17 History Furosemide [Furosemide 80mg Tab] 80 mg PO DAILY 07/02/17 07/02/17 History Gabapentin [Gabapentin 300mg Cap] 300 mg PO TID 07/02/17 07/02/17 History Isosorbide Dinitrate 30 mg PO BID 07/02/17 07/02/17 History Levothyroxine Sodium 25 mcg PO DAILY 07/02/17 07/02/17 History [Levothyroxine 25mcg (0.025mg) Tab] Lisinopril [Lisinopril 20mg Tab] 20 mg PO DAILY 07/02/17 07/02/17 History Nystatin [Nystop] 10,000 pow TOPICAL BID 07/02/17 07/02/17 History Omeprazole [Omeprazole 20mg 20 mg PO DAILY 07/02/17 07/02/17 History Capsule] Rivaroxaban [Xarelto 10mg tablet] 15 mg PO DAILY 07/02/17 07/02/17 History Simvastatin [Zocor] 20 mg PO HS 07/02/17 07/02/17 History Tramadol HCl [Ultram 50mg 50 mg PO TIDP PRN 07/02/17 07/02/17 History tablet] Allergies Allergy/AdvReac Type Severity Reaction Status Date / Time morphine [MORPHINE] Allergy Unknown Verified 07/02/17 12:20
--- NOTE | 2017-07-06 10:26 | P.PN_ITS ---
Internal Medicine - PN: Subj *Date: 07/06/17 *Time: 10:25 Interval history: Breathing better. No complaints of chest pain. Lieing flat in bed in NAD. Ready to go home. Exam Vital signs and Labs for Last 24 Hours: Temp Pulse Resp BP Pulse Ox 98.2 F 98 H 18 120/53 93 L 07/06/17 04:04 07/06/17 04:04 07/06/17 04:04 07/06/17 04:04 07/06/17 04:04 Laboratory Results - last 24 hr 07/06/17 06:20: WBC 2.8 L, RBC 3.19 L, Hgb 8.9 L, Hct 28.4 L, MCV 89.1, MCH 28.1 , MCHC 31.5 L, RDW 15.0, Plt Count 74 L, MPV 9.1, Neut % (Auto) 80.6 H, Lymph % (Auto) 13.6, [place] % (Auto) 5.2, Eos % (Auto) 0.4, Baso % (Auto) 0.3, Neut # ( Auto) 2.3, Lymph # (Auto) 0.4 L, [place]alfa # (Auto) 0.1, Eos # (Auto) 0.0, Baso # ( Auto) 0.0 07/06/17 06:20: Sodium 145, Potassium 5.2 H, Chloride 103, Carbon Dioxide 40 H, Anion Gap 7.2, BUN 27 H, Creatinine 1.03 H, Estimated Creat Clear 41, Estimated GFR 52 L, Est GFR ( Amer) 62 D, Glucose 179 H, Calcium 9.2, Total Bilirubin 0.3, AST 27 D, ALT 40, Alkaline Phosphatase 72, Total Protein 5.7 L, Albumin 2.3 L D, Globulin 3.4 H, Albumin/Globulin Ratio 0.7 L I & O for Last 24 hours: Intake & Output 07/03/17 07/04/17 07/05/17 07/06/17 23:59 23:59 23:59 23:59 Intake Total 1250 / 1250 600 / 600 1000 / 1000 240 / 240 Output Total 2150 / 2150 1650 / 1650 2600 / 2600 1000 / 1000 Balance -900 / -900 -1050 / -1050 -1600 / -1600 -760 / -760 Microbiology Reports for the Last 24 Hours: Microbiology 07/03/17 13:45 Urine,Catheterized Urine Culture - Final NO GROWTH AFTER 48 HOURS The patient's infection will respond to the chosen ABx?: Yes Is the patient receiving the right drug, dose, and route?: Yes Could a more targeted ABx be ordered?: No
== END 2017-07-06 11:15 | disposition home or self-care (01) | DRG 193 ==
LOC: ER 13:19 → 2ND 13:39
PROVIDERS: Admitting Provider Emergency Medicine; Emergency Provider Emergency Medicine; Family Provider Nurse Practitioner Family; PCP Nurse Practitioner Family; Visit Provider Emergency Medicine
DX: J18.9 Pneumonia, unspecified organism (principal); I50.43 Acute on chronic combined systolic (congestive) and diastolic (congestive) heart failure; D61.818 Other pancytopenia; I48.2 Chronic atrial fibrillation; Z68.43 Body mass index [BMI] 50.0-59.9, adult; J44.9 Chronic obstructive pulmonary disease, unspecified; I10 Essential (primary) hypertension; E66.01 Morbid (severe) obesity due to excess calories
CPT/HCPCS: 36415; 71045; 80048; 80053; 81001; 82550; 82553; 83605; 83880; 84443; 84484; 85025; 87040; 87077; 87086; 87186; 87205; 90686; 93005; 93041; 93306; 94640; 94761; 96365; 97162; 99283; J0456; J1956

== ENCOUNTER 2017-07-21 15:52 | Inpatient (IN) | payer MEDICARE, OTHER, MEDICAID, SELFPAY ==
[2017-07-21 15:53] VITALS: BP 107/68; PULSE 86; RESP 24; TEMP 36.6; O2SAT 100; BMI 50.5
--- NOTE | 2017-07-21 16:08 | XR_ITS ---
XR chest portable HISTORY: ITS.REASON: SOB ORDERING PHYSICIAN: Vargas Awad MD PATIENT AGE: 82 years COMPARISON: 07/02/2017 FINDINGS: The cardiomediastinal silhouette and pulmonary vascularity are within normal limits. Bilateral pneumonia has shown improvement compared to the previous exam.. No lobar consolidation or collapse. Degenerative changes of the shoulders. IMPRESSION: Improvement in bilateral pneumonia, no acute finding
[2017-07-21 16:33] VITALS: BP 89/53; PULSE 85; RESP 20; O2SAT 97
[2017-07-21 16:34] LABS: Basophils % 0.5 % (0.1-2.0); Eosinophils # 0.2 K/mm3 (0.0-0.4); Eosinophils % 4.3 % (0.1-12.0); Hematocrit 28.8 % (37.0-47.0); Lymphocytes # 0.9 K/mm3 (0.7-4.5); Lymphocytes % 23.2 K/mm3 (10-50); Mean Corpuscular HGB Conc 31.1 g/dL (31.8-35.4); Mean Corpuscular Hemoglobin 28.9 pg (27.0-31.2); Mean Corpuscular Volume 93.2 fl (81-99); Mean Platelet Volume 9.1 fl (7.4-10.4); Monocytes # 0.2 K/mm3 (0.1-1.0); Monocytes % 5.2 % (1.7-9.3); Neutrophils # 2.5 K/mm3 (1.8-7.8); Neutrophils % 66.9 % (37.0-80.0); Platelet Count 95 K/mm3 (142-424); Red Blood Count 3.09 M/mm3 (4.20-5.40); Red Cell Distribution Width 16.2 % (11.5-17.5); White Blood Count 3.7 K/mm3 (4.8-10.8)
[2017-07-21 16:50] LABS: Alanine Aminotransferase 19 U/L (12-78); Albumin Level 2.5 gm/dL (3.4-5.0); Albumin/Globulin Ratio 0.7 (1.1-1.8); Alkaline Phosphatase 88 U/L (46-116); Anion Gap 6.4 mEq/L (5-15); Aspartate Amino Transferase 16 U/L (15-37); Bilirubin,Total 0.4 mg/dL (0.2-1.0); Blood Urea Nitrogen 35 mg/dL (7-18); Calcium 8.8 mg/dL (8.5-10.1); Carbon Dioxide 39 mmol/L (21.0-32.0); Chloride 105 mmol/L (98-107); Creatinine Clearance Estimated 29 mL/min (0-300); Creatinine,Serum 1.44 mg/dL (0.55-1.02); Estimated Glomerular Filt Rate 35 ml/min (>60); GFR (African American) 42 ML/MIN (>60); Globulin 3.5 gm/dl (1.3-3.2); Glucose 124 mg/dL (74-106); Potassium 5.4 mmoL/L (3.5-5.1); Sodium 145 mmol/L (136-145)
[2017-07-21 16:53] LABS: Lactic Acid 0.9 mmol/L (0.4-2.0)
--- NOTE | 2017-07-21 17:56 | HMH.EDGENADL ---
ED Disposition Clinical Impression: Bilateral pneumonia, Hemoptysis Disposition: Still a Patient Condition on Discharge: Good - Critical Care Critical Care Time: No Attestation: On 07/21/17, the high probability of a clinically significant, sudden or life threatening deterioration of the following system(s) required my full and direct attention, intervention and personal management. The time I documented below is in addition to time spent performing reported procedures but includes the following listed in this critical care notation. Medical Decision Making Vital Signs: 07/21/17 15:53 07/21/17 16:33 07/21/17 18:38 Temperature 97.8 F Temperature Source Oral Pulse Rate [Right Brachial] 86 85 86 Respiratory Rate 24 20 Blood Pressure [Right Arm] 107/68 89/53 101/61 Blood Pressure Mean [Right Arm] 81 65 74 Blood Pressure Source [Right Arm] Automatic Cuff Automatic Cuff Automatic Cuff Blood Pressure Position [Right Arm] Sitting Sitting Sitting 02 Sat by Pulse Oximetry 100 97 Oxygen Delivery Method Nasal Cannula Room Air Oxygen Flow Rate (LPM) 4 - Lab Data Lab Results 07/21/17 16:20: WBC 3.7 L, RBC 3.09 L, Hgb 9.0 L, Hct 28.8 L, MCV 93.2, MCH 28.9, MCHC 31.1 L, RDW 16.2, Plt Count 95 L, MPV 9.1, Neut % (Auto) 66.9, Lymph % (Auto) 23.2, Platte % (Auto) 5.2, Eos % (Auto) 4.3, Baso % (Auto) 0.5, Neut # (Auto) 2.5, Lymph # (Auto) 0.9, Platte # (Auto) 0.2, Eos # (Auto) 0.2, Baso # (Auto) 0.0 07/21/17 16:20: Sodium 145, Potassium 5.4 H, Chloride 105, Carbon Dioxide 39 H, Anion Gap 6.4, BUN 35 H, Creatinine 1.44 H, Estimated Creat Clear 29, Estimated GFR 35 L, Est GFR ( Amer) 42 L, Glucose 124 H, Calcium 8.8, Total Bilirubin 0.4, AST 16, ALT 19, Alkaline Phosphatase 88, Total Protein 6.0 L, Albumin 2.5 L, Globulin 3.5 H, Albumin/Globulin Ratio 0.7 L 07/21/17 16:20: Lactic Acid 0.9 Result diagrams: 07/21/17 16:20 07/21/17 16:20 Orders (Tests/Meds): ED MEDICATIONS Generic Name Dose Route Start Last Admin Trade Name Keiko PRN Reason Stop Dose Admin Acetaminophen 650 mg 07/21/17 18:55 07/21/17 18:58 Acetaminophen 325mg Tab PO 08/20/17 18:54 650 mg Q4HP PRN Administration Mild Pain Levofloxacin/Dextrose 750 mg in 150 mls @ 100 mls/hr 07/21/17 18:41 07/21/17 19:02 Levofloxacin 750mg/150ml Premix IV 07/21/17 20:10 100 mls/hr ONCE ONE Administration Protocol ORDERS Category Date Time Status Blood Culture Stat Micro 07/21/17 16:20 Received - Blu Inquiry Pt receiving controlled substance: No Medical Decision Making Narrative: 6:30 PM: I have discussed the case with Dr. Hester covering for Dr. Roper who agrees to admit the patient to the hospital. We discussed the patient's clinical information, including history, exam, laboratory and radiology results and ED course. Per hospital procedure, I will write temporary bridge inpatient orders on the patient. Specific orders requested by the admitting physician: Rosalio, admit to observation I also discussed the case with Balwinder Scales, she is in agreement Doubt pulmonary embolism given that she is on Xarelto. Estimated GFR is in the 30s, cannot perform CT angiogram. Will keep on Xarelto and primary care can decide on VQ scan tomorrow. Balwinder Scales is in agreement. General Adult HPI - General Chief complaint: Shortness of Breath/Dyspnea Stated complaint: SOB Mode of Arrival: EMS Limitations: No Limitations Description of Symptoms (Recalled from ER Triage Doc. by RN): PT C/O COUGHING UP BLOOD, PT HAS HX OF DOUBLE PNUEMONIA RECENTLY, AND PLURISY. - History of Present Illness HPI narrative: The patient was admitted for bilateral pneumonia from July 02 July 06. She says she felt well when she went home. 2 days ago she says she took a turn for the worse. She says she is hurting in both of her lungs and has coughed up some blood mixed with phlegm. She denies being short of breath. 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
--- NOTE | 2017-07-21 17:59 | ED_ITS ---
ED Disposition Clinical Impression: Bilateral pneumonia, Hemoptysis Disposition: Still a Patient Condition on Discharge: Good - Critical Care Critical Care Time: No Attestation: On 07/21/17, the high probability of a clinically significant, sudden or life threatening deterioration of the following system(s) required my full and direct attention, intervention and personal management. The time I documented below is in addition to time spent performing reported procedures but includes the following listed in this critical care notation. Medical Decision Making Vital Signs: 07/21/17 15:53 07/21/17 16:33 07/21/17 18:38 Temperature 97.8 F Temperature Source Oral Pulse Rate [Right Brachial] 86 85 86 Respiratory Rate 24 20 Blood Pressure [Right Arm] 107/68 89/53 101/61 Blood Pressure Mean [Right Arm] 81 65 74 Blood Pressure Source [Right Arm] Automatic Cuff Automatic Cuff Automatic Cuff Blood Pressure Position [Right Arm] Sitting Sitting Sitting 02 Sat by Pulse Oximetry 100 97 Oxygen Delivery Method Nasal Cannula Room Air Oxygen Flow Rate (LPM) 4 - Lab Data Lab Results 07/21/17 16:20: WBC 3.7 L, RBC 3.09 L, Hgb 9.0 L, Hct 28.8 L, MCV 93.2, MCH 28.9 , MCHC 31.1 L, RDW 16.2, Plt Count 95 L, MPV 9.1, Neut % (Auto) 66.9, Lymph % ( Auto) 23.2, Benzie % (Auto) 5.2, Eos % (Auto) 4.3, Baso % (Auto) 0.5, Neut # (Auto ) 2.5, Lymph # (Auto) 0.9, Benzie # (Auto) 0.2, Eos # (Auto) 0.2, Baso # (Auto) 0.0 07/21/17 16:20: Sodium 145, Potassium 5.4 H, Chloride 105, Carbon Dioxide 39 H, Anion Gap 6.4, BUN 35 H, Creatinine 1.44 H, Estimated Creat Clear 29, Estimated GFR 35 L, Est GFR ( Amer) 42 L, Glucose 124 H, Calcium 8.8, Total Bilirubin 0.4, AST 16, ALT 19, Alkaline Phosphatase 88, Total Protein 6.0 L, Albumin 2.5 L, Globulin 3.5 H, Albumin/Globulin Ratio 0.7 L 07/21/17 16:20: Lactic Acid 0.9 Result diagrams: 07/21/17 16:20 07/21/17 16:20 Orders (Tests/Meds): ED MEDICATIONS Generic Name Dose Route Start Last Admin Trade Name Freq PRN Reason Stop Dose Admin Acetaminophen 650 mg 07/21/17 18:55 07/21/17 18:58 Acetaminophen 325mg Tab PO 08/20/17 18:54 650 mg Q4HP PRN Administration Mild Pain Levofloxacin/Dextrose 750 mg in 150 mls @ 100 mls/hr 07/21/17 18:41 07/21/17 19:02 Levofloxacin 750mg/150ml Premix IV 07/21/17 20:10 100 mls/hr ONCE ONE Administration Protocol ORDERS Category Date Time Status Blood Culture Stat Micro 07/21/17 16:20 Received - Blu Inquiry Pt receiving controlled substance: No Medical Decision Making Narrative: 6:30 PM: I have discussed the case with Dr. Hester covering for Dr. Roper who agrees to admit the patient to the hospital. We discussed the patient's clinical information, including history, exam, laboratory and radiology results and ED course. Per hospital procedure, I will write temporary bridge inpatient orders on the patient. Specific orders requested by the admitting physician: Rosalio, admit to observation I also discussed the case with Balwinder Scales, she is in agreement Doubt pulmonary embolism given that she is on Xarelto. Estimated GFR is in the 30s, cannot perform CT angiogram. Will keep on Xarelto and primary care can decide on VQ scan tomorrow. Balwinder Scales is in agreement. General Adult HPI - General Chief complain
[2017-07-21 18:38] VITALS: BP 101/61; PULSE 86
--- NOTE | 2017-07-21 19:35 | PC.NURSE ---
PT FULL CODE, REPORT RECEIVED FROM GHULAM
--- NOTE | 2017-07-21 19:36 | PC.NURSE ---
called report to Yael on second floor
[2017-07-21 20:35] VITALS: BP 123/85; PULSE 93; RESP 22; TEMP 37.1; O2SAT 99; BMI 59.8
--- NOTE | 2017-07-21 22:00 | PC.NURSE ---
states had blood clot long time ago before she even had her children
[2017-07-21 22:17] VITALS: O2SAT 95
[2017-07-21 22:28] VITALS: PULSE 77; PULSE 80; O2SAT 99
[2017-07-22] VITALS (8 sets, daily range): BP systolic 88–123; BP diastolic 40–75; PULSE 85–97; RESP 16–20; TEMP 36.6–37.1; O2SAT 94–98
--- NOTE | 2017-07-22 04:30 | PC.NURSE ---
PT NEW ADMIT START OF SHIFT. STATES WAS PT SEVERAL WEEKS AGO. PT STATES SHE IS NOT DIABETIC, HOWEVER, WAS ORDERED DIABETIC DIET WITH ADMISSION ORDERS. #20 RFA, SL. FLUSHES W/O REDNESS OR EDEMA. SLEPT LONG INTERVALS. NEED ORDER FOR TEDS. PT HAS FINE CRACKLES IN BASES. 4L/NC, PT STATES THIS IS WHAT SHE IS ON AT HOME. NEB TX ORDERED. PT STABLE. WILL CONTINUE TO MONITOR. REPORT TO BE GIVEN TO ONCOMING NURSE.
--- NOTE | 2017-07-22 07:23 | HMH.PHAVTE ---
[facility] VTE Monitoring - Patient Demographics Admission date: 07/21/17 Report Date: 07/22/17 Time: 07:23 Allergies/Adverse Reactions: Patient Allergies morphine [MORPHINE] Allergy (Unknown, Verified 07/02/17 12:20) Height: 1.52 m Weight: 137.8 kg Patient Problems: Current Active Problems Bilateral pneumonia (Acute) Hemoptysis (Acute) - VTE Risk Labs: VTE Related Lab Results Hgb 9.0 g/dL (12.2-16.2) L 07/21/17 16:20 Hct 28.8 % (37.0-47.0) L 07/21/17 16:20 Plt Count 95 K/mm3 (142-424) L 07/21/17 16:20 BUN 35 mg/dL (7-18) H 07/21/17 16:20 Creatinine 1.44 mg/dL (0.55-1.02) H 07/21/17 16:20 Estimated Creat Clear 29 mL/min (0-300) 07/21/17 16:20 Was VTE Risk Assessment Performed: Yes VTE Risk Level: Low Risk - Prophylaxis VTE Prophylaxis Ordered?: Yes Types of VTE Prophylaxis: TEDS Knee High Location of Applied Device: Bilateral Lower Extremeties Pharmacologic Type: Other (XARELTO) - VTE Diagnosis Confirmed Treatment or plan recommended: Continue Current Treatment
--- NOTE | 2017-07-22 07:40 | PC.NURSE ---
REPORT GIVEN TO Susu VERDE W/C
--- NOTE | 2017-07-22 13:09 | HMH.HP ---
*Admission Date: 07/21/17 *Chief complaint: sob *History of present illness: 82 yr old female patient was admitted for bilateral pneumonia from July 02 July 06. pt states 2 days ago she says she took a turn for the worse. She says she is hurting in both of her lungs and has coughed up some blood mixed with phlegm. She is chronically on nasal cannula oxygen. She she has not had a fever but does have malaise and fatigue and has not been out of bed for a couple days. admitted to observe overnight. [facility] History I have reviewed the patient's past medical history: Yes Medical History: Reports:: Atrial Fibrillation, Congestive Heart Failure, Chronic Obstructive Pulmonary Disease (COPD), Deep Vein Thrombosis, Hyperlipidemia, Hypertension Denies:: Cancer, Diabetes Mellitus Type 1, Diabetes Mellitus Type 2, Internal Pacemaker, MRSA Other Medical History: Reports: Cataracts, Glaucoma, Thyroid Disease Other Surgeries: No: Pacemaker Amputation: No Fractures: Yes - *Social History Educational Level: Attended High School Smoking Status: Former smoker Tobacco Type: cigarettes Alcohol Intake: never Occupational Status: disabled Housing: house Household Members: family - Psychiatric History Expresses thoughts of harming self/others: None Suicide Plan Description: No Plan *Family Hx:: Cancer, Hyperlipidemia, Hypertension Review of Systems - Constitutional Reports body ache(s), Reports chills, Reports weakness - Eyes Denies double vision - ENT Reports post nasal drip, Denies change in voice, Denies neck pain, Denies sinus pain - *Cardiovascular Denies chest pain at rest, Denies chest pain with activity - *Respiratory Reports change in phlegm color, Reports chest congestion, Reports cough - *Gastrointestinal Denies abdominal pain - *Genitourinary Denies abnormal vaginal bleeding - *Musculoskeletal Denies joint pain - Integumentary/Breasts Denies bleeding lesions, Denies rash - *Neurologic Reports weakness, Denies abnormal hearing - Psychiatric Denies lack of enjoyment - Endocrine Denies excessive sweating - Hematologic/Lymphatic Denies easy bruising - Allergic/Immunologic Denies itchy eyes Meds Home Medications Medication Instructions Recorded Confirmed Type Albuterol Sulfate [Albuterol 1 vial IH Q6HP PRN 07/02/17 07/22/17 History 0.083% 2.5mg/3mL neb] Cholecalciferol (Vitamin D3) 50,000 unit PO DAILY 07/02/17 07/22/17 History [Vitamin D3 50,000 unit Cap] Fluoxetine HCl 40 mg PO DAILY 07/02/17 07/22/17 History Folic Acid [Folic Acid 1mg tablet] 1 mg PO DAILY 07/02/17 07/22/17 History Furosemide [Furosemide 80mg Tab] 80 mg PO DAILY 07/02/17 07/22/17 History Gabapentin [Gabapentin 300mg Cap] 300 mg PO TID 07/02/17 07/22/17 History Isosorbide Dinitrate 30 mg PO BID 07/02/17 07/22/17 History Levothyroxine Sodium 25 mcg PO DAILY 07/02/17 07/22/17 History [Levothyroxine 25mcg (0.025mg) Tab] Lisinopril [Lisinopril 20mg Tab] 20 mg PO DAILY 07/02/17 07/22/17 History Nystatin [Nystop] 10,000 pow TOPICAL BID 07/02/17 07/22/17 History Omeprazole [Omeprazole 20mg 20 mg PO DAILY 07/02/17 07/22/17 History Capsule] Rivaroxaban [Xarelto 10mg tablet] 15 mg PO DAILY 07/02/17 07/22/17 History Simvastatin [Zocor] 20 mg PO HS 07/02/17 07/22/17 History Tramadol HCl [Ultram 50mg 50 mg PO TIDP PRN 07/02/17 07/22/17 History tablet] Azithromycin [Zithromax 250mg 250 mg PO DIRECTED 07/22/17 07/22/17 History tab] predniSONE [Deltasone 20mg 20 mg PO BID 07/22/17 07/22/17 History tablet] Allergies Allergy/AdvReac Type Severity Reaction Status Date / Time morphine [MORPHINE] Allergy Unknown Verified 07/02/17 12:20 Exam Vital signs and Labs for Last 24 Hours: Temp Pulse Resp BP Pulse Ox 97.8 F 90 18 88/40 98 07/22/17 12:09 07/22/17 12:09 07/22/17 12:09 07/22/17 12:09 07/22/17 12:09 I & O for Last 24 hours: Intake & Output
--- NOTE | 2017-07-22 15:59 | HMH.PTEV ---
Physical Therapy Evaluation Rehab PT IP Evaluation Start: 07/22/17 13:14 Freq: ONCE Status: Active Protocol: Document 07/22/17 15:55 PWKIMANI (Rec: 07/22/17 15:58 [id number]) Subjective/History History History This si the initial Physical therapy evaluation for Emiliana Ortiz. Pt is an 82 y/o female admitted to [facility] for possible CAP. Pt has hx of frequent re-admits to [facility] for c/o weakness. Subjective Subjective Pt reports feeling fine, but would like to get her legs and lungs stronger Rehab PT IP Eval Objective Appearance Patient Behavior Appropriate Patient Orientation Person Place Time Name Age Birthday Difficulty following instructions none Speech Pattern Clear Appropriate Ambulation Patient Able to Ambulate Yes Ambulation Observation IP General Gait Pattern Observation Shuffling Step Ambulation Distance (feet) 30 Ambulation Assistive Device Rolling Walker Balance Ability to Arise Able, uses arms to help Sitting Balance Steady, safe Standing Balance Steady, wide stance Dynamic Sitting Balance Ability Normal Dynamic Standing Balance Ability Good Transfers Bed Transfer Ability Supervision/Stand by Chair Transfer Ability Supervision/Stand by Sit to Stand Bed Transfer Ability Supervision/Stand by Sit to Stand Chair Transfer Ability Supervision/Stand by ROM All Extremities PT ROM Status WFL MMT All Extremities PT MMT WFL Rehab PT IP prob,goals,plan Problems Date of Evaluation: 07/22/17 PT IP Problems Self care Rehab Potential Rehab Potential Good Equipment Needs Assistive Devices Rolling / Wheeled Walker Plan PT Intervention Plan Transfers Gait PT Plan Frequency BID Duration LOS Discharge Goals Bed Transfer Ability Supervision/Stand by Sit to Stand Chair Transfer Ability Supervision/Stand by Ambulation Assistive Device Rolling Walker Ambulation Distance (feet) 30 Discharge Plan PT Discharge Plan Pt and family wish to go to SNF for rehab to allow return to PLOF G -code Require
--- NOTE | 2017-07-22 16:07 | SW/DCPLANNER ---
Addendum entered by Sarah Katz 07/22/17 17:38: Patients granddaughter has called me stating that she is this patients POA and she is requesting that patient transfer to a correction facilities in [place], [place]. I told granddaughter that she would need to have further discussion with patient regarding this situation due to patient wanting to go to [place]. I had discussion with patient regarding situation and patient clearly stated I make decisions for myself, they are only my POA when I am in that part [facility], and I want to stay here in [place] and go to [place] . Original Note: I have spoke with patient and patients daughter (Denise Landaverde) regarding discharge plans. PT has been in to evaluate patient and has stated that patient is a candidate for short term skilled rehab. Family has stated that they prefer patient information to be faxed to [place]. I have spoke with Farideh to confirm beds are available and patient information has been faxed. I will follow up with Farideh in the AM regarding this patient. Patient could potentially be ready for discharge tomorrow.
--- NOTE | 2017-07-22 18:44 | PC.NURSE ---
PATIENT HAS BEEN SITTING IN CHAIR T/O SHIFT. SHE HAS BEEN TO BSC SEVERAL TIMES WITH ASSISTANCE. DENIES PAIN AT THIS TIME. A&OX3. LUNGS ARE DIMINISHED T/O. CONTINUES TO WEAR 4LNC. PATIENT WORKED WITH PT TODAY AND HAS AGREED TO SHORT TERM REHAB. SHE HAS BEEN ON THE PHONE MOST OF THE DAY WITH FAMILY. CALL LIGHT WITHIN REACH WILL CONTINUE TO MONITOR.
--- NOTE | 2017-07-22 19:13 | PC.NURSE ---
REPORT GIVEN TO JOAQUÍN FAIRCHILD RN
--- NOTE | 2017-07-22 19:15 | PC.NURSE ---
PT FULL CODE, REPORT RECEIVED FROM MAURICIO
[2017-07-23] VITALS: BP 104/53; PULSE 106; RESP 22; TEMP 36.9; O2SAT 95
[2017-07-23 04:00] VITALS: BP 100/63; PULSE 98; RESP 20; TEMP 36.6; O2SAT 95
--- NOTE | 2017-07-23 05:24 | PC.NURSE ---
PT SLEPT LONG INTERVALS THIS SHIFT. ALERT AND ORIENTED. IV TO SL, PATENT. CONTINUES ON IV ABX AND IV STEROIDS. NO C/O CHEST PAIN OR SOA. NO DISTRESS NOTED. CONTINUES ON 4LNC. PT REMOVED CAROL[facility] HOSE PRIOR TO GOING TO SLEEP. WORE THEM MOST OF DAY YESTERDAY, STATED THAT SHE DIDN'T WANT TO SLEEP IN THEM TONIGHT. BREATH SOUNDS DIMINISHED THROUGHOUT. PT STABLE. WILL CONTINUE TO MONITOR. REPORT TO BE GIVEN TO ONCOMING NURSE.
[2017-07-23 06:31] VITALS: PULSE 89; PULSE 93; O2SAT 99
--- NOTE | 2017-07-23 07:28 | PC.NURSE ---
REPORT GIVEN TO Dyllan QUINN W/C
[2017-07-23 08:00] VITALS: BP 111/60; PULSE 110; RESP 22; TEMP 36.3; O2SAT 92
--- NOTE | 2017-07-23 08:31 | HMH.ACPN2 ---
Internal Medicine - PN: Subj *Date: 07/23/17 *Time: 08:31 Exam Vital signs and Labs for Last 24 Hours: Temp Pulse Resp BP Pulse Ox 97.9 F 93 H 20 100/63 99 07/23/17 04:00 07/23/17 06:31 07/23/17 04:00 07/23/17 04:00 07/23/17 06:31 I & O for Last 24 hours: Intake & Output 07/20/17 07/21/17 07/22/17 07/23/17 11:59 11:59 11:59 11:59 Intake Total 640 / 640 380 / 380 Output Total 800 / 800 1825 / 1825 Balance -160 / -160 -1445 / -1445 Weight 303 lb 12.752 oz 306 lb 7 oz - Constitutional no acute distress - *Routine HEENT Exam Head: Present: normocephalic Eye: Present: PERRL ENT: Present: mucous membranes moist - *Routine Neck Exam Present: supple, full ROM - *Routine Respiratory Exam Present: CTA bilaterally - *Routine Cardiovascular Exam Present: RRR - *Routine Abdominal Exam Present: soft, normoactive bowel sounds - *Routine Neurological Exam Present: alert, oriented X3 - Routine Psychiatric Exam Present: normal affect, normal thought process
[2017-07-23 09:00] VITALS: PULSE 112; O2SAT 92
[2017-07-23 11:39] VITALS: BP 118/46; PULSE 91; RESP 18; TEMP 35.8; O2SAT 99
--- NOTE | 2017-07-23 12:57 | HMH.DCSUM ---
General - General Admission date: 07/21/17 Discharge date: 07/23/17 HPI HPI: 82 yr old female patient was admitted for bilateral pneumonia from July 02 July 06. pt states 2 days ago she says she took a turn for the worse. She says she is hurting in both of her lungs and has coughed up some blood mixed with phlegm. She is chronically on nasal cannula oxygen. She she has not had a fever but does have malaise and fatigue and has not been out of bed for a couple days. admitted to observe overnight. Objective Vital signs: Temp Pulse Resp BP Pulse Ox 96.4 F L 91 H 18 118/46 99 07/23/17 11:39 07/23/17 11:39 07/23/17 11:39 07/23/17 11:39 07/23/17 11:39 no acute distress - *Routine HEENT Exam Head: Present: normocephalic Eye: Present: PERRL ENT: Present: mucous membranes moist - *Routine Neck Exam Present: supple - *Routine Respiratory Exam Present: CTA bilaterally - *Routine Cardiovascular Exam Present: RRR, murmur - *Routine Extremities Exam Present: full ROM - *Routine Neurological Exam Present: alert, oriented X3 Hospital Course Hospital Course: x ray: IMPRESSION: Improvement in bilateral pneumonia, no acute finding today pt states she feels better but still weak. denies sob today will dc to [place] for rehab to help build strength. amaury ruiz at [place]. will see pt next tues at [place]. Meds Home Medications Medication Instructions Recorded Confirmed Type Albuterol Sulfate [Albuterol 1 vial IH Q6HP PRN 07/02/17 07/22/17 History 0.083% 2.5mg/3mL neb] Cholecalciferol (Vitamin D3) 50,000 unit PO DAILY 07/02/17 07/22/17 History [Vitamin D3 50,000 unit Cap] Fluoxetine HCl 40 mg PO DAILY 07/02/17 07/22/17 History Folic Acid [Folic Acid 1mg tablet] 1 mg PO DAILY 07/02/17 07/22/17 History Furosemide [Furosemide 80mg Tab] 80 mg PO DAILY 07/02/17 07/22/17 History Gabapentin [Gabapentin 300mg Cap] 300 mg PO TID 07/02/17 07/22/17 History Isosorbide Dinitrate 30 mg PO BID 07/02/17 07/22/17 History Levothyroxine Sodium 25 mcg PO DAILY 07/02/17 07/22/17 History [Levothyroxine 25mcg (0.025mg) Tab] Lisinopril [Lisinopril 20mg Tab] 20 mg PO DAILY 07/02/17 07/22/17 History Nystatin [Nystop] 10,000 pow TOPICAL BID 07/02/17 07/22/17 History Omeprazole [Omeprazole 20mg 20 mg PO DAILY 07/02/17 07/22/17 History Capsule] Rivaroxaban [Xarelto 10mg tablet] 15 mg PO DAILY 07/02/17 07/22/17 History Simvastatin [Zocor] 20 mg PO HS 07/02/17 07/22/17 History Tramadol HCl [Ultram 50mg 50 mg PO TIDP PRN 07/02/17 07/22/17 History tablet] Azithromycin [Zithromax 250mg 250 mg PO DIRECTED 07/22/17 07/22/17 History tab] predniSONE [Deltasone 20mg 20 mg PO BID 07/22/17 07/22/17 History tablet] Allergies Allergy/AdvReac Type Severity Reaction Status Date / Time morphine [MORPHINE] Allergy Unknown Verified 07/02/17 12:20 Discharge Plan - Patient Discharge Instructions ACTIVITY: Continue current activity DIET: continue same diet - Follow up Plan Follow up with: Balwinder Scales APRN [Primary Care Provider] - 1 week Disposition: er [facility] Home Medications: Home Medications Medication Instructions Recorded Confirmed Type Albuterol Sulfate [Albuterol 1 vial IH Q6HP PRN 07/02/17 07/22/17 History 0.083% 2.5mg/3mL neb] Cholecalciferol (Vitamin D3) 50,000 unit PO DAILY 07/02/17 07/22/17 History [Vitamin D3 50,000 unit Cap] Fluoxetine HCl 40 mg PO DAILY 07/02/17 07/22/17 History Folic Acid [Folic Acid 1mg tablet] 1 mg PO DAILY 07/02/17 07/22/17 History Furosemide [Furosemide 80mg Tab] 80 mg PO DAILY 07/02/17 07/22/17 History Gabapentin [Gabapentin 300mg Cap] 300 mg PO TID 07/02/17 07/22/17 History Isosorbide Dinitrate 30 mg PO BID 07/02/17 07/22/17 History Levothyroxine Sodium 25 mcg PO DAILY 07/02/17 07/22/17 History [Levothyroxine 25mcg (0.025mg) Tab] Lisinopril [Lisinopril 20mg Tab] 20 mg PO DAILY 07/02/17 07/22/17
--- NOTE | 2017-07-23 13:09 | SW/DCPLANNER ---
Patient is ready for discharge and has been accept to [place]. I have informed patient since she can sit up in chair she could ride by vehicle to [place]. Patient stated that her daughter has a truck and she is not capable of getting in truck...I have told patient that if she transports by ambulance that she could be billed for transportation. Patient stated that she understood and would still like to be transported by ambulance. Patient is ready for discharge and nurse (Erika) is working on discharge.
[2017-07-23 13:17] VITALS: BMI 60.1
--- NOTE | 2017-07-23 13:31 | PC.NURSE ---
REPORT CALLED TO ISAIAH AT [facility]. [facility] CALLED FOR AMBULANCE RIDE PER PATIENT REQUEST. PATIENT WAS INFORMED THAT RIDE MAY NOT QUALIFY TO BE COVERED AND SHE IS IN UNDERSTANDING OF THIS.
== END 2017-07-23 13:42 | DRG 194 ==
LOC: ER 18:49 → 2ND 19:34
PROVIDERS: Admitting Provider Internal Medicine Adolescent Medicine; Emergency Provider Emergency Medicine; Family Provider Nurse Practitioner Family; PCP Nurse Practitioner Family; Visit Provider Emergency Medicine
DX: J18.9 Pneumonia, unspecified organism (principal); Z68.43 Body mass index [BMI] 50.0-59.9, adult; E66.01 Morbid (severe) obesity due to excess calories; I11.0 Hypertensive heart disease with heart failure; I50.9 Heart failure, unspecified; I48.91 Unspecified atrial fibrillation; J44.9 Chronic obstructive pulmonary disease, unspecified; Z99.81 Dependence on supplemental oxygen
CPT/HCPCS: 71045; 80053; 83605; 85025; 87040; 93005; 94640; 94760; 94761; 97162; 99284; J1956

== ENCOUNTER → 2017-07-30 15:22 | Outpatient (CLI) | payer SELFPAY | PROVIDERS: PCP Emergency Medicine; Visit Provider Emergency Medicine | DX: D64.9 Anemia, unspecified (principal) | CPT/HCPCS: 36415; 86850 ==

== ENCOUNTER 2017-07-31 09:39 | Outpatient (CLI) | payer SELFPAY ==
[2017-07-31] VITALS (21 sets, daily range): BP systolic 90–131; BP diastolic 33–88; PULSE 79–95; RESP 20–24; TEMP 36.3–36.9; O2SAT 92–96; BMI 48.9
[2017-07-31 17:37] LABS: Hemoglobin 9.5 g/dL (12.2-16.2)
--- NOTE | 2017-07-31 18:57 | PC.NURSE ---
iv removed prior to dc. report called to [facility] [place]. request results of hh to be faxed to them.
== END 2017-07-31 18:00 | disposition home or self-care (01) ==
LOC: INF 09:40
PROVIDERS: Family Provider Nurse Practitioner Family; PCP Emergency Medicine; Visit Provider Emergency Medicine
DX: D64.9 Anemia, unspecified (principal)
CPT/HCPCS: 36415; 36430; 85014; 85018; P9016

== ENCOUNTER 2017-08-09 17:31 | Inpatient (IN) | payer MEDICARE, OTHER, SELFPAY ==
[2017-08-09] VITALS (7 sets, daily range): BP systolic 110–190; BP diastolic 69–104; PULSE 78–132; RESP 20–28; TEMP 37.6–39.4; O2SAT 90–99; BMI 50.8; BMI 109.8
--- NOTE | 2017-08-09 18:09 | HMH.EDGENADL ---
ED Disposition Clinical Impression: Hemoptysis, Atrial fibrillation with RVR, Pneumonia, A-fib Disposition: Admitted As Inpatient Condition on Discharge: Good Referrals: Mike Roper MD [Primary Care Provider] - - Critical Care Critical Care Time: No Attestation: On 08/09/17, the high probability of a clinically significant, sudden or life threatening deterioration of the following system(s) required my full and direct attention, intervention and personal management. The time I documented below is in addition to time spent performing reported procedures but includes the following listed in this critical care notation. Medical Decision Making - Medical Records MR Comment: 2030 pt back with afib, pneumonia, hemoptysis, have reviewed labs ekg, and cxr with Jacquelin PEREZ in ER. plan admit. Vital Signs: 08/09/17 17:39 Temperature 103 F H Temperature Source Oral Pulse Rate [Left Radial] 126 H Respiratory Rate 28 H Blood Pressure [Right Arm] 159/104 Blood Pressure Mean [Right Arm] 122 Blood Pressure Source [Right Arm] Manual Cuff/ Auscultation Blood Pressure Position [Right Arm] Sitting 02 Sat by Pulse Oximetry 94 L Oxygen Delivery Method Nasal Cannula Oxygen Flow Rate (LPM) 4 - Lab Data Lab Results 08/09/17 18:07: O2 % 36%, 4lpm nc, ABG pH 7.41, ABG pCO2 50.3 H, ABG pO2 75.0 L, ABG HCO3 31.1 H, ABG Total CO2 32.6 H, ABG O2 Saturation 95, ABG Base Excess 6.4 H, Amilcar Test Acceptable 08/09/17 19:30: Urine Color Yellow, Urine Appearance Clear, Urine pH 7.5, Ur Specific [place] 1.010, Urine Protein Negative, Urine Glucose (UA) Negative, Urine Ketones Negative, Urine Blood 3+, Urine Nitrate Negative, Urine Bilirubin Negative, Urine Urobilinogen 2.0, Ur Leukocyte Esterase 2+ A 08/09/17 19:30: WBC 26.7 H*, RBC 3.78 L, Hgb 10.7 L, Hct 34.5 L, MCV 91.1, MCH 28.2, MCHC 31.0 L, RDW 16.5, Plt Count 120 L, MPV 9.0, Neut % (Auto) 93.6 H, Lymph % (Auto) 3.8 L, [place] % (Auto) 2.4, Eos % (Auto) 0.1, Baso % (Auto) 0.1, Neut # (Auto) 25.0 H, Lymph # (Auto) 1.0, [place] # (Auto) 0.6, Eos # (Auto) 0.0, Baso # (Auto) 0.0 08/09/17 19:30: PT 13.4 H, INR 1.24 H, APTT 32.0 08/09/17 19:30: Urine HCG, Qual Negative, Influenza Type A Ag Negative, Influenza Type B Ag Negative 08/09/17 19:30: Sodium 142, Potassium 5.2 H, Chloride 100, Carbon Dioxide 36 H, Anion Gap 11.2, BUN 29 H, Creatinine 1.56 H, Estimated Creat Clear 27, Estimated GFR 32 L, Est GFR ( Amer) 39 L, Glucose 128 H, Calcium 9.0, Total Bilirubin 0.8, AST 12 L, ALT 19, Alkaline Phosphatase 84, Lactate Dehydrogenase 222, Troponin I < 0.02, Total Protein 6.9, Albumin 2.8 L, Globulin 4.1 H, Albumin/Globulin Ratio 0.7 L, Lipase 73 Result diagrams: 08/09/17 19:30 08/09/17 19:30 Orders (Tests/Meds): ED MEDICATIONS Discontinued Medications Generic Name Dose Route Start Last Admin Trade Name Freq PRN Reason Stop Dose Admin Albuterol/Ipratropium 3 ml 08/09/17 18:07 Duoneb 3ml Neb IH 08/09/17 18:08 ONCE ONE ORDERS Category Date Time Status Type and Screen Stat BBK 08/09/17 18:06 Ordered B-Type Natriuretic Peptide Stat Lab 08/09/17 19:30 Received Complete Blood Count Auto Diff Stat Lab 08/09/17 19:30 Results Urinalysis and Microscopic Stat Lab 08/09/17 19:30 Results Blood Culture Stat Micro 08/09/17 19:30 Received Urine Culture Stat Micro 08/09/17 19:30 Received ECG Request by /Don Stat Y 08/09/17 18:06 Ordered - ECG Data Tracing #1 ER EKG read by myself shows a fib with rvr 120, normal axis, no QT prolongation, nonspecific EKG - Blu Inquiry Pt receiving controlled substance: No General Adult HPI - General Chief complaint: Fever Stated complaint: cough Mode of Arrival: EMS Limitations: No Limitations Description of Symptoms (Recalled from ER Triage Doc. by RN): cough, since last night, bringing up blood but not new, fever - History of Present Illness HPI narrative: Patient states she has been having fever u
--- NOTE | 2017-08-09 18:13 | ED_ITS ---
ED Disposition Clinical Impression: Hemoptysis, Atrial fibrillation with RVR, Pneumonia, A-fib Disposition: Admitted As Inpatient Condition on Discharge: Good Referrals: Mike Roper MD [Primary Care Provider] - - Critical Care Critical Care Time: No Attestation: On 08/09/17, the high probability of a clinically significant, sudden or life threatening deterioration of the following system(s) required my full and direct attention, intervention and personal management. The time I documented below is in addition to time spent performing reported procedures but includes the following listed in this critical care notation. Medical Decision Making - Medical Records MR Comment: 2030 pt back with afib, pneumonia, hemoptysis, have reviewed labs ekg, and cxr with Jacquelin PEREZ in ER. plan admit. Vital Signs: 08/09/17 17:39 Temperature 103 F H Temperature Source Oral Pulse Rate [Left Radial] 126 H Respiratory Rate 28 H Blood Pressure [Right Arm] 159/104 Blood Pressure Mean [Right Arm] 122 Blood Pressure Source [Right Arm] Manual Cuff/ Auscultation Blood Pressure Position [Right Arm] Sitting 02 Sat by Pulse Oximetry 94 L Oxygen Delivery Method Nasal Cannula Oxygen Flow Rate (LPM) 4 - Lab Data Lab Results 08/09/17 18:07: O2 % 36%, 4lpm nc, ABG pH 7.41, ABG pCO2 50.3 H, ABG pO2 75.0 L , ABG HCO3 31.1 H, ABG Total CO2 32.6 H, ABG O2 Saturation 95, ABG Base Excess 6.4 H, Amilcar Test Acceptable 08/09/17 19:30: Urine Color Yellow, Urine Appearance Clear, Urine pH 7.5, Ur Specific [place] 1.010, Urine Protein Negative, Urine Glucose (UA) Negative, Urine Ketones Negative, Urine Blood 3+, Urine Nitrate Negative, Urine Bilirubin Negative, Urine Urobilinogen 2.0, Ur Leukocyte Esterase 2+ A 08/09/17 19:30: WBC 26.7 H*, RBC 3.78 L, Hgb 10.7 L, Hct 34.5 L, MCV 91.1, MCH 28.2, MCHC 31.0 L, RDW 16.5, Plt Count 120 L, MPV 9.0, Neut % (Auto) 93.6 H, Lymph % (Auto) 3.8 L, [place] % (Auto) 2.4, Eos % (Auto) 0.1, Baso % (Auto) 0.1, Neut # (Auto) 25.0 H, Lymph # (Auto) 1.0, [place] # (Auto) 0.6, Eos # (Auto) 0.0, Baso # (Auto) 0.0 08/09/17 19:30: PT 13.4 H, INR 1.24 H, APTT 32.0 08/09/17 19:30: Urine HCG, Qual Negative, Influenza Type A Ag Negative, Influenza Type B Ag Negative 08/09/17 19:30: Sodium 142, Potassium 5.2 H, Chloride 100, Carbon Dioxide 36 H, Anion Gap 11.2, BUN 29 H, Creatinine 1.56 H, Estimated Creat Clear 27, Estimated GFR 32 L, Est GFR ( Amer) 39 L, Glucose 128 H, Calcium 9.0, Total Bilirubin 0.8, AST 12 L, ALT 19, Alkaline Phosphatase 84, Lactate Dehydrogenase 222, Troponin I < 0.02, Total Protein 6.9, Albumin 2.8 L, Globulin 4.1 H, Albumin/Globulin Ratio 0.7 L, Lipase 73 Result diagrams: 08/09/17 19:30 08/09/17 19:30 Orders (Tests/Meds): ED MEDICATIONS Discontinued Medications Generic Name Dose Route Start Last Admin Trade Name Freq PRN Reason Stop Dose Admin Albuterol/Ipratropium 3 ml 08/09/17 18:07 Duoneb 3ml Neb IH 08/09/17 18:08 ONCE ONE ORDERS Category Date Time Status Type and Screen Stat BBK 08/09/17 18:06 Ordered B-Type Natriuretic Peptide Stat Lab 08/09/17 19:30 Received Complete Blood Count Auto Diff Stat Lab 08/09/17 19:30 Results Urinalysis and Microscopic Stat Lab 08/09/17 19:30 Results Blood Culture Stat Micro 08/09/17 19:30 Received Urine Culture Stat Micro 08/09/17 19:30 Received
--- NOTE | 2017-08-09 18:35 | XR_ITS ---
XR chest portable HISTORY: ITS.REASON: cough ORDERING PHYSICIAN: Uriel Wooten MD PATIENT AGE: 82 years COMPARISON: 07/21/2017 FINDINGS: The cardiomediastinal silhouette and pulmonary vascularity are within normal limits. Dense consolidation has developed in the right upper lobe consistent with pneumonia. Mild atelectasis or infiltrate present in the left lung base. IMPRESSION: 1. Right upper lobe lobar pneumonia. 2. Mild left base or atelectasis or infiltrate
[2017-08-09 18:53] LABS: ABG Base Excess 6.4 mmol/L (-2.4-2.3); ABG HCO3 31.1 mmhg (22.0-26.0); ABG Oxygen Saturation 95 % (90-100); ABG PH 7.41 mmol/L (7.35-7.45); ABG TCO2 32.6 mmhg (23-27)
[2017-08-09 18:56] LABS: Allen's Test Acceptable
[2017-08-09 18:57] LABS: ABG PCO2 50.3 mmhg (35.0-45.0)
--- NOTE | 2017-08-09 18:58 | PC.NURSE ---
GRABIEL Results written down, given to
[2017-08-09 19:56] LABS: Microscopic, Urine URINE MICROSCOPIC (MICROSCOPIC)
[2017-08-09 20:01] LABS: Appearance,Urine CLEAR (Clear); Bilirubin,Urine Negative (Negative); Blood, Urine 3+ (Negative); Color,Urine YELLOW (Yellow); Glucose,Urine (UA) Negative (Negative); Ketones,Urine Negative (Negative); Leukocyte Esterase,Urine 2+ (Negative); Nitrate,Urine Negative (Negative); PH,Urine 7.5 (5.0-8.5); Protein,Urine Negative (Negative)
[2017-08-09 20:04] LABS: Basophils % 0.1 % (0.1-2.0); Eosinophils % 0.1 % (0.1-12.0); Hematocrit 34.5 % (37.0-47.0); Hemoglobin 10.7 g/dL (12.2-16.2); Lymphocytes % 3.8 K/mm3 (10-50); Mean Corpuscular Hemoglobin 28.2 pg (27.0-31.2); Mean Corpuscular Volume 91.1 fl (81-99); Monocytes # 0.6 K/mm3 (0.1-1.0); Monocytes % 2.4 % (1.7-9.3); Neutrophils % 93.6 % (37.0-80.0); Platelet Count 120 K/mm3 (142-424); Red Blood Count 3.78 M/mm3 (4.20-5.40); Red Cell Distribution Width 16.5 % (11.5-17.5); White Blood Count 26.7 K/mm3 (4.8-10.8)
[2017-08-09 20:06] LABS: Urine Pregnancy, HCG Qual. Negative (Negative)
[2017-08-09 20:09] LABS: INR 1.24 (0.9-1.1); Prothrombin Time 13.4 seconds (9.4-11.8)
[2017-08-09 20:15] LABS: MANUAL DIFFERENTIAL MANUAL DIFFERENTIAL (MANUAL DIFF)
[2017-08-09 20:21] LABS: Alanine Aminotransferase 19 U/L (12-78); Albumin Level 2.8 gm/dL (3.4-5.0); Albumin/Globulin Ratio 0.7 (1.1-1.8); Alkaline Phosphatase 84 U/L (46-116); Anion Gap 11.2 mEq/L (5-15); Aspartate Amino Transferase 12 U/L (15-37); Bilirubin,Total 0.8 mg/dL (0.2-1.0); Blood Urea Nitrogen 29 mg/dL (7-18); Carbon Dioxide 36 mmol/L (21.0-32.0); Chloride 100 mmol/L (98-107); Creatinine Clearance Estimated 27 mL/min (0-300); Creatinine,Serum 1.56 mg/dL (0.55-1.02); Estimated Glomerular Filt Rate 32 ml/min (>60); GFR (African American) 39 ML/MIN (>60); Globulin 4.1 gm/dl (1.3-3.2); Glucose 128 mg/dL (74-106); Lactate Dehydrogenase 222 U/L (82-234); Lipase 73 u/L (73-393); Potassium 5.2 mmoL/L (3.5-5.1); Sodium 142 mmol/L (136-145); Total Protein,Serum 6.9 gm/dL (6.4-8.2); Troponin I < 0.02 ng/ml (0.00-0.06)
--- NOTE | 2017-08-09 20:29 | PC.NURSE ---
TO BE ADMITTED TO [facility]OSPITAL. [facility] WITH DX HEALTHCARE ACQUIRED PNEUMONIA AND A FIB. TO BE BOARDED IN ED R/T NO BEDS AVAILABLE AT THIS TIME.
[2017-08-09 21:12] LABS: Bacteria,Urine Trace /lpf; RBC,Urine 50-100 #/hpf (0-3); Squamous Epithelial Cell,Urine Occasional #/hpf (0-5)
[2017-08-09 21:47] LABS: Lymphocytes % 5 % (10-50); Neutrophils % 95 % (42-76); Total Cells Counted 100
[2017-08-09 21:48] LABS: Anisocytosis 1+; Platelet Estimate Normal; Stomatocytes 1+
[2017-08-10] VITALS (7 sets, daily range): BP systolic 92–120; BP diastolic 40–68; PULSE 60–100; RESP 18–20; TEMP 36.2–36.8; O2SAT 88–93
--- NOTE | 2017-08-10 03:03 | PC.NURSE ---
82 YEAR OLD WHITE FEMALE ADMITTED ON 08-09 WITH HEALTHCARE ACQUIRED PNEUMONIA. LAYING IN BED RESTING AT THIS TIME. HAS DENIED PAIN SINCE BEING ADMITTED. STATED EARLIER IN SHIFT ONLY ABLE TO WALK SHORT DISTANCE FROM BED TO CHAIR WITH WALKER DUE TO ARTHRITIS IN KNEES AND SOA. STATES USES A CPAP AT [facility] DURING NIGHT. DENIES SOA AT LAST CHECK. LUNGS ARE DIMINISHED, RESP EVEN AND NON LABORED. STATED ON ADMISSION WAS COUGHING UP BLOOD. NO BLOOD NOTED SO FAR THIS SHIFT. IV IS PATENT. FRANKLIN CATHETER IN PLACE. LEUK SALMA SHOWED 2+ ON UA, WBC 26.7. BED LOCKED IN LOW POSITION, SIDE RALES UP X 2, CALL LIGHT WITHIN REACH. ENCOURAGED TO CALL OUT FOR ASSISTANCE. WILL CONTINUE TO MONITOR.
--- NOTE | 2017-08-10 07:25 | P.CONPHA_ITS ---
[facility] Pharmacy VTE Monitoring - Patient Demographics Admission date: 08/09/17 Report Date: 08/10/17 Time: 07:25 Allergies/Adverse Reactions: Patient Allergies morphine [MORPHINE] Allergy (Unknown, Verified 07/30/17 08:09) Height: 1.68 m Weight: 308.7 kg Patient Problems: Current Active Problems Pneumonia (Acute) A-fib (Chronic) Hemoptysis (Acute) Atrial fibrillation with RVR (Acute) - VTE Risk Labs: VTE Related Lab Results Hgb 10.7 g/dL (12.2-16.2) L 08/09/17 19:30 Hct 34.5 % (37.0-47.0) L 08/09/17 19:30 Plt Count 120 K/mm3 (142-424) L 08/09/17 19:30 PT 13.4 seconds (9.4-11.8) H 08/09/17 19:30 INR 1.24 (0.9-1.1) H 08/09/17 19:30 APTT 32.0 seconds (23.6-34.0) 08/09/17 19:30 BUN 29 mg/dL (7-18) H 08/09/17 19:30 Creatinine 1.56 mg/dL (0.55-1.02) H 08/09/17 19:30 Estimated Creat Clear 27 mL/min (0-300) 08/09/17 19:30 Was VTE Risk Assessment Performed: Yes Clinical Trial Participant: No - Prophylaxis VTE Prophylaxis Ordered?: Yes Types of VTE Prophylaxis: TEDS Knee High
--- NOTE | 2017-08-10 09:22 | CT_ITS ---
CT chest wo con HISTORY: Pneumonia, elevated white blood cell count, abnormal chest x-ray follow-up ITS.REASON: abn cxr ORDERING PHYSICIAN: Mike Roper MD PATIENT AGE: 82 years TECHNIQUE: Axial images obtained. Sagittal and coronal reformatted images are also generated and reviewed. CONTRAST: 75ml Isovue 370 I.V. COMPARISON: Chest x-ray of 08/09/[address] scan of 11/05/2015 FINDINGS: The left lobe of the thyroid gland is enlarged with a nodule measuring 2.7 x 2.6 cm along the lower pole with some mild compression upon the thyroid gland. There is dense consolidation in the right upper lobe within the posterior segment of the right upper lobe and also within the anterior segment of the right upper lobe laterally with air bronchograms consistent with pneumonia. There is a small right effusion with atelectatic changes in the lung bases. Calcified granulomas present in the left lower lobe. There is mildly enlarged precarinal lymph node at 2 cm There is cardiomegaly and there are coronary artery calcifications. IMPRESSION: 1. Extensive right upper lobe pneumonia with small right effusion. 2. Left thyroid nodule. 3. Mildly enlarged mediastinal lymph node
--- NOTE | 2017-08-10 09:23 | HMH.HP ---
*Admission Date: 08/09/17 *Chief complaint: sob *History of present illness: this wf from [facility] was noted to be sob with fever ent states she has been having fever up to 103 today and some chills some malaise and fatigue she denies any pain no complaint of headache chest pain or abdominal pain she is coughing up some yellow phlegm and also well as she is coughed up some blood the family states she is coughed up blood for the past year that is a chronic problem for this states she was recently admitted and transfused. She denies any vomiting or diarrhea. sHe denies any pain. Symptoms present for the past day except for the filling up of blood which is been there for a year per the patient and family, and is known to her doctors per patient an [facility] History I have reviewed the patient's past medical history: Yes Medical History: Reports:: Atrial Fibrillation, Congestive Heart Failure, Chronic Obstructive Pulmonary Disease (COPD), Deep Vein Thrombosis, Hyperlipidemia, Hypertension Denies:: Cancer, Diabetes Mellitus Type 1, Diabetes Mellitus Type 2, Internal Pacemaker, MRSA Other Medical History: Reports: Cataracts, Glaucoma, Thyroid Disease Other Surgeries: Yes: Skin Cancer Excision, Other (GALL BLADDER REMOVED). No: Pacemaker Amputation: No Fractures: Yes (right ankle) - *Social History Educational Level: Attended High School Smoking Status: Never smoker Tobacco Type: cigarettes Alcohol Intake: never Occupational Status: disabled Housing: assisted living facility Household Members: family - Psychiatric History Expresses thoughts of harming self/others: None Suicide Plan Description: No Plan *Family Hx:: Cancer, Hyperlipidemia, Hypertension Review of Systems - Review of Systems Review of systems:: pertinent systems reviewed and negative unless documented below - Constitutional Reports fever(s) - Eyes Denies change in vision - ENT Denies sore throat - *Cardiovascular Denies chest pain at rest - *Respiratory Reports chest congestion, Reports cough, Reports coughing up blood - *Gastrointestinal Reports nausea, Denies abdominal pain - *Musculoskeletal Denies joint pain, Denies joint swelling - Integumentary/Breasts Denies rash - *Neurologic Denies tingling/numbness/burning sensations - Psychiatric Denies anxiety Meds Home Medications Medication Instructions Recorded Confirmed Type Albuterol Sulfate [Albuterol 1 vial IH Q6HP PRN 07/02/17 08/10/17 History 0.083% 2.5mg/3mL neb] Cholecalciferol (Vitamin D3) 50,000 unit PO WE 07/02/17 08/10/17 History [Vitamin D3 50,000 unit Cap] Fluoxetine HCl 40 mg PO DAILY 07/02/17 08/10/17 History Folic Acid [Folic Acid 1mg tablet] 1 mg PO DAILY 07/02/17 08/10/17 History Furosemide [Furosemide 80mg Tab] 80 mg PO DAILY 07/02/17 08/10/17 History Gabapentin [Gabapentin 300mg Cap] 300 mg PO TID 07/02/17 08/10/17 History Isosorbide Dinitrate 30 mg PO BID 07/02/17 08/10/17 History Levothyroxine Sodium 25 mcg PO DAILY 07/02/17 08/10/17 History [Levothyroxine 25mcg (0.025mg) Tab] Lisinopril [Lisinopril 20mg Tab] 20 mg PO DAILY 07/02/17 08/10/17 History Omeprazole [Omeprazole 20mg 20 mg PO DAILY 07/02/17 08/10/17 History Capsule] Rivaroxaban [Xarelto 10mg tablet] 15 mg PO DAILY 07/02/17 08/10/17 History Simvastatin [Zocor] 20 mg PO HS 07/02/17 08/10/17 History Tramadol HCl [Ultram 50mg 50 mg PO TIDP PRN 07/02/17 08/10/17 History tablet] Azithromycin [Zithromax 250mg 250 mg PO DIRECTED 07/22/17 08/10/17 History tab] Allergies Allergy/AdvReac Type Severity Reaction Status Date / Time morphine [MORPHINE] Allergy Unknown Verified 07/30/17 08:09 Exam Vital signs and Labs for Last 24 Hours: Temp Pulse Resp BP Pulse Ox 97.3 F L 67 20 92/50 90 L 08/10/17 07:49 08/10/17 07:49 08/10/17 07:49 08/10/17 07:57 08/10/17 07:49 I & O for Last 24 hours: Intake & Output 08/07/17 08/08/17 08/09/17 08/10/17 11:59
--- NOTE | 2017-08-10 09:25 | XR_ITS ---
XR chest portable PICC plac HISTORY: ITS.REASON: Confirm PICC line placement ORDERING PHYSICIAN: Mike Roper MD PATIENT AGE: 82 years COMPARISON: None available FINDINGS: Left upper extremity PICC line has been inserted. The tip is difficult to see and may be in the region of the proximal superior vena cava. Consolidation is noted in right upper lobe consistent with pneumonia which appear slightly improved. There is mild cardiomegaly. Study is limited technically due to patient's body habitus. IMPRESSION: Left upper extremity PICC line tip in the region of superior vena cava. Right upper lobe pneumonia
--- NOTE | 2017-08-10 10:31 | HMH.CONS ---
*Admission Date: 08/09/17 *Chief complaint: I got so weak. *History of present illness: Ms. Ortiz is an 82-year-old woman who has the significant past history of atrial fibrillation, congestive heart failure, COPD and obstructive sleep apnea who was in an assisted-living facility for physical therapy after her most recent hospitalization for apparent pneumonia. She had presented in late May with increased dyspnea and occasional cough, I understand. In June, she developed increase in the cough and dyspnea associated with blood-streaked sputum. She was admitted for bilateral pneumonia and seemed to respond to corticosteroid and antibiotic therapy. She was discharged to [facility] for rehabilitation. A day or 2 ago, she suddenly felt quite weak and then had a bed shaking chill associated with a cough which was productive of blood-streaked sputum. She became more short of breath and was admitted here. Since admission, she has improved significantly. She has no cough at all now and no chest pain. She still feels weak. She has had no abdominal pain, nausea or vomiting.She has chronic diffuse osteoarthritis. She's had no urinary symptoms or rash or neurological complaints. Ms. Ortiz began smoking when she was quite young but never smoked more than a package of cigarettes a week. She quit about 7 years ago. She was diagnosed with COPD a few years ago and has been on home oxygen and nebulized therapy. [facility] History I have reviewed the patient's past medical history: Yes (She has had a cholecystectomy and is a 5 para 5.) Medical History: Reports:: Atrial Fibrillation, Congestive Heart Failure, Chronic Obstructive Pulmonary Disease (COPD), Deep Vein Thrombosis, Hyperlipidemia, Hypertension Denies:: Cancer, Diabetes Mellitus Type 1, Diabetes Mellitus Type 2, Internal Pacemaker, MRSA Other Medical History: Reports: Cataracts, Glaucoma, Thyroid Disease Other Surgeries: Yes: Skin Cancer Excision, Other (GALL BLADDER REMOVED). No: Pacemaker Amputation: No Fractures: Yes (right ankle) - *Social History Educational Level: Attended High School Smoking Status: Never smoker Tobacco Type: cigarettes Alcohol Intake: never Occupational Status: disabled Housing: assisted living facility Household Members: family Comment: Ms. Ortiz has 1/8 grade education and can read and write well. She left school to help her mother with her grandmother. Her of many years a few years ago of a heart attack. She has been living with 1 of her daughters. Of her 5 children, a son of a disseminated cancer. She has 5 healthy grandchildren and 10 healthy great-grandchildren. She has no stairs to climb in her daughter's home. There are several dogs there. - Psychiatric History Expresses thoughts of harming self/others: None Suicide Plan Description: No Plan *Family Hx:: Cancer, Hyperlipidemia, Hypertension Comment: Her father of lung cancer in his early 50s and her mother of old age and Alzheimer's disease. There is no family history of any chronic lung disease. Review of Systems - Review of Systems Review of systems:: pertinent systems reviewed and negative unless documented below - *Neurologic Denies tingling/numbness/burning sensations Meds Home Medications Medication Instructions Recorded Confirmed Type Albuterol Sulfate [Albuterol 1 vial IH Q6HP PRN 07/02/17 08/10/17 History 0.083% 2.5mg/3mL neb] Cholecalciferol (Vitamin D3) 50,000 unit PO WE 07/02/17 08/10/17 History [Vitamin D3 50,000 unit Cap] Fluoxetine HCl 40 mg PO DAILY 07/02/17 08/10/17 History Folic Acid [Folic Acid 1mg tablet] 1 mg PO DAILY 07/02/17 08/10/17 History Furosemide [Furosemide 80mg Tab] 80 mg PO DAILY 07/02/17 08/10/17 History Gabapentin [Gabapentin 300mg Cap] 300 mg PO TID 07/02/17 08/10/17 History Isosorbide Dinitrate 30 mg PO BID 07/02/17 08/10/17 History Levothyroxine Sodium 25 mcg PO DAILY 07/02/17 08/10/17 History [Levo
--- NOTE | 2017-08-10 10:52 | P.CONS_ITS ---
*Admission Date: 08/09/17 *Chief complaint: I got so weak. *History of present illness: Ms. Ortiz is an 82-year-old woman who has the significant past history of atrial fibrillation, congestive heart failure, COPD and obstructive sleep apnea who was in an assisted-living facility for physical therapy after her most recent hospitalization for apparent pneumonia. She had presented in late May with increased dyspnea and occasional cough, I understand. In June , she developed increase in the cough and dyspnea associated with blood- streaked sputum. She was admitted for bilateral pneumonia and seemed to respond to corticosteroid and antibiotic therapy. She was discharged to [facility] for rehabilitation. A day or 2 ago, she suddenly felt quite weak and then had a bed shaking chill associated with a cough which was productive of blood-streaked sputum. She became more short of breath and was admitted here. Since admission, she has improved significantly. She has no cough at all now and no chest pain. She still feels weak. She has had no abdominal pain, nausea or vomiting.She has chronic diffuse osteoarthritis. She's had no urinary symptoms or rash or neurological complaints. Ms. Ortiz began smoking when she was quite young but never smoked more than a package of cigarettes a week. She quit about 7 years ago. She was diagnosed with COPD a few years ago and has been on home oxygen and nebulized therapy. [facility] History I have reviewed the patient's past medical history: Yes (She has had a cholecystectomy and is a 5 para 5.) Medical History: Reports:: Atrial Fibrillation, Congestive Heart Failure, Chronic Obstructive Pulmonary Disease (COPD), Deep Vein Thrombosis, Hyperlipidemia, Hypertension Denies:: Cancer, Diabetes Mellitus Type 1, Diabetes Mellitus Type 2, Internal Pacemaker, MRSA Other Medical History: Reports: Cataracts, Glaucoma, Thyroid Disease Other Surgeries: Yes: Skin Cancer Excision, Other (GALL BLADDER REMOVED). No: Pacemaker Amputation: No Fractures: Yes (right ankle) - *Social History Educational Level: Attended High School Smoking Status: Never smoker Tobacco Type: cigarettes Alcohol Intake: never Occupational Status: disabled Housing: assisted living facility Household Members: family Comment: Ms. Ortiz has 1/8 grade education and can read and write well. She left school to help her mother with her grandmother. Her of many years a few years ago of a heart attack. She has been living with 1 of her daughters. Of her 5 children, a son of a disseminated cancer. She has 5 healthy grandchildren and 10 healthy great-grandchildren. She has no stairs to climb in her daughter's home. There are several dogs there. - Psychiatric History Expresses thoughts of harming self/others: None Suicide Plan Description: No Plan *Family Hx:: Cancer, Hyperlipidemia, Hypertension Comment: Her father of lung cancer in his early 50s and her mother of old age and Alzheimer's disease. There is no family history of any chronic lung disease. Review of Systems - Review of Systems Review of systems:: pertinent systems reviewed and negative unless documented below - *Neurologic Denies tingling/numbness/burning sensations Meds Home Medications Medication Instructions Recorded Confirmed Type Albuterol Sulfate [Albuterol 1 vial IH Q6HP PRN 07/02/17 08/10/17 History 0.083% 2.5mg/3mL neb] Cholecalciferol (Vitamin D3) 50,000 unit PO WE 07/02/17 08/10/17 History [Vitamin D3 50,000 unit Cap] Fluoxetine HCl 40 mg PO DAILY 07/02/17 08/10/17 Hi
[2017-08-10 15:11] LABS: Basophils % 0.1 % (0.1-2.0); Eosinophils % 0.2 % (0.1-12.0); Hematocrit 28.9 % (37.0-47.0); Lymphocytes % 4.5 K/mm3 (10-50); Mean Corpuscular HGB Conc 31.4 g/dL (31.8-35.4); Mean Corpuscular Hemoglobin 28.6 pg (27.0-31.2); Mean Platelet Volume 9.7 fl (7.4-10.4); Monocytes # 0.5 K/mm3 (0.1-1.0); Monocytes % 1.9 % (1.7-9.3); Neutrophils # 21.8 K/mm3 (1.8-7.8); Neutrophils % 93.4 % (37.0-80.0); Platelet Count 78 K/mm3 (142-424); Red Blood Count 3.18 M/mm3 (4.20-5.40); Red Cell Distribution Width 16.6 % (11.5-17.5); White Blood Count 23.3 K/mm3 (4.8-10.8)
[2017-08-10 15:18] LABS: Anion Gap 9.8 mEq/L (5-15); Blood Urea Nitrogen 43 mg/dL (7-18); Carbon Dioxide 33 mmol/L (21.0-32.0); Chloride 101 mmol/L (98-107); Creatinine Clearance Estimated 20 mL/min (0-300); Creatinine,Serum 2.12 mg/dL (0.55-1.02); Estimated Glomerular Filt Rate 22 ml/min (>60); GFR (African American) 27 ML/MIN (>60); Glucose 140 mg/dL (74-106); Potassium 4.8 mmoL/L (3.5-5.1); Sodium 139 mmol/L (136-145)
[2017-08-10 15:19] LABS: MANUAL DIFFERENTIAL MANUAL DIFFERENTIAL (MANUAL DIFF)
[2017-08-10 15:20] LABS: Hemoglobin 9.2 g/dL (12.2-16.2)
[2017-08-10 16:43] LABS: Lymphocytes % 7 % (10-50); Monocytes % 1 % (2-9); Neutrophils % 86 % (42-76); Platelet Estimate Marked Decrease; RBC Morphology Normal; Total Cells Counted 100
--- NOTE | 2017-08-10 17:03 | SW/DCPLANNER ---
Spoke with patient regarding discharge plans. Patient stated that she was admitted to [facility] from [facility]. Patient has very clearly stated that she is discharging home and not to [place]. Patients daughter was present in patients room and stated that she is home 18/01 to care for her mother. I explained to both patient and family that patient has a PICC line in place and would need IV antibiotics and family stated that they would be home to be able to assist in administering medications. Patient has stated that she is fine with home health and does not have a preference on an agency. I will follow up with patient tomorrow to assist with any needs/new orders.
--- NOTE | 2017-08-10 18:12 | PC.NURSE ---
Rhonchi and wheezes noted to lungs. O2 sats in 90's on 3.5L NC. Pt has been up to the chair on several occasions with assist x1. Picc in RUE patent and flushes easily. Blood noted at picc insertion site. Dressing to be changed on 08/11. Stringer patent and at bedside draining tea colored urine. No complaints voiced. Will continue to monitor.
--- NOTE | 2017-08-10 19:01 | PC.NURSE ---
report given to tai norris
[2017-08-11] VITALS (11 sets, daily range): BP systolic 78–95; BP diastolic 43–60; PULSE 66–106; RESP 20–24; TEMP 36.6–36.8; O2SAT 87–97; BMI 50.2
--- NOTE | 2017-08-11 03:35 | PC.NURSE ---
LAYING IN BED RESTING AT THIS TIME. HAS SLEPT INTERMITTENTLY THROUGHOUT SHIFT. HS BEEN UP TO BED SIDE TOILET ONCE THIS SHIFT. DOES WELL TRANSFERRING WITH MINIMAL ASSIST. HAS DENIED PAIN OR SOA. LUNGS WERE DIMINISHED THROUGHOUT. RESP EVEN AND NONLABORED. PICC LINE IS PATENT. BIO PATCH HAS SOME OLD BLOOD ON IT FROM INSERTION YESTERDAY. NO NEW BLOOD NOTED. BED LOCKED IN LOW POSITION, SIDE RALES UP X 2. CALL LIGHT WITHIN REACH, WILL CONTINUE TO MONITOR.
--- NOTE | 2017-08-11 09:57 | P.PN_ITS ---
Internal Medicine - PN: Subj *Date: 08/11/17 *Time: 09:55 Interval history: doing better Exam Vital signs and Labs for Last 24 Hours: Temp Pulse Resp BP Pulse Ox 98.1 F 96 H 24 95/60 97 08/11/17 07:24 08/11/17 07:24 08/11/17 09:47 08/11/17 04:00 08/11/17 07:24 Laboratory Results - last 24 hr 08/10/17 14:45: WBC 23.3 H*, RBC 3.18 L, Hgb 9.2 L D, Hct 28.9 L, MCV 91.0, MCH 28.6, MCHC 31.4 L, RDW 16.6, Plt Count 78 L D, MPV 9.7, Neut % (Auto) 93.4 H, Lymph % (Auto) 4.5 L, Dickenson % (Auto) 1.9, Eos % (Auto) 0.2, Baso % (Auto) 0.1, Neut # (Auto) 21.8 H, Lymph # (Auto) 1.0, Dickenson # (Auto) 0.5, Eos # (Auto) 0.0, Baso # (Auto) 0.0, Total Counted 100, Neutrophils % (Manual) 86 H, Band Neutrophils % 3.0, Lymphocytes % (Manual) 7 L, Monocytes % (Manual) 1 L, Metamyelocytes % 3.0 H, Platelet Estimate Marked decrease, RBC Morphology Normal 08/10/17 14:45: Sodium 139, Potassium 4.8, Chloride 101, Carbon Dioxide 33 H, Anion Gap 9.8, BUN 43 H D, Creatinine 2.12 H D, Estimated Creat Clear 20, Estimated GFR 22 L, Est GFR ( Amer) 27 L D, Glucose 140 H I & O for Last 24 hours: Intake & Output 08/08/17 08/09/17 08/10/17 08/11/17 11:59 11:59 11:59 11:59 Intake Total 240 / 240 869 / 869 Output Total 200 / 200 550 / 550 Balance 40 / 40 319 / 319 Weight 306 lb 1 oz 312 lb 7 oz - Constitutional no acute distress - *Routine HEENT Exam Head: Present: normocephalic Eye: Present: EOMI, PERRL ENT: Present: mucous membranes dry - *Routine Neck Exam Present: supple - *Routine Respiratory Exam Absent: respiratory distress - *Routine Cardiovascular Exam Present: RRR - *Routine Extremities Exam Absent: calf tenderness - *Routine Skin Exam Present: intact - *Routine Neurological Exam Present: alert, CN II-XII intact - Routine Psychiatric Exam Present: normal affect Assessment and Plan (1) Pneumonia Current visit: Yes Status: Acute Qualifiers: Category: Medical Code(s): J18.9 - Pneumonia, unspecified organism
[2017-08-11 10:40] LABS: Basophils % 0.1 % (0.1-2.0); Eosinophils # 0.1 K/mm3 (0.0-0.4); Eosinophils % 0.4 % (0.1-12.0); Hematocrit 28.9 % (37.0-47.0); Hemoglobin 9.1 g/dL (12.2-16.2); Lymphocytes # 1.3 K/mm3 (0.7-4.5); Lymphocytes % 7.6 K/mm3 (10-50); Mean Corpuscular HGB Conc 31.3 g/dL (31.8-35.4); Mean Corpuscular Hemoglobin 28.5 pg (27.0-31.2); Mean Platelet Volume 10.1 fl (7.4-10.4); Monocytes # 0.4 K/mm3 (0.1-1.0); Monocytes % 2.2 % (1.7-9.3); Neutrophils # 15.8 K/mm3 (1.8-7.8); Neutrophils % 89.6 % (37.0-80.0); Platelet Count 83 K/mm3 (142-424); Red Blood Count 3.18 M/mm3 (4.20-5.40); Red Cell Distribution Width 16.5 % (11.5-17.5); White Blood Count 17.6 K/mm3 (4.8-10.8)
[2017-08-11 10:42] LABS: MANUAL DIFFERENTIAL MANUAL DIFFERENTIAL (MANUAL DIFF)
[2017-08-11 10:50] LABS: Blood Urea Nitrogen 42 mg/dL (7-18); Carbon Dioxide 36 mmol/L (21.0-32.0); Chloride 103 mmol/L (98-107); Creatinine Clearance Estimated 23 mL/min (0-300); Creatinine,Serum 1.85 mg/dL (0.55-1.02); Estimated Glomerular Filt Rate 26 ml/min (>60); GFR (African American) 32 ML/MIN (>60); Glucose 116 mg/dL (74-106); Sodium 140 mmol/L (136-145)
[2017-08-11 11:05] LABS: Eosinophils % 1 % (0-3); Lymphocytes % 8 % (10-50); Monocytes % 2 % (2-9); Neutrophils % 89 % (42-76); Platelet Estimate Moderate Decrease; Total Cells Counted 100
[2017-08-11 11:06] LABS: Hypochromasia 2+
--- NOTE | 2017-08-11 11:25 | HMH.PTEV ---
Physical Therapy Evaluation Rehab PT IP Evaluation Start: 08/11/17 10:00 Freq: ONCE Status: Active Protocol: Document 08/11/17 11:22 CINDA (Rec: 08/11/17 11:25 CINDA [id number]) Subjective/History History History This is the initial Physical THerapy evaluation for Emiliana Barriga. Pt is an 82 y/o female admitted to [facility] for pneumonia from [facility]. Subjective Subjective Pt reports pain in R side, upper lung Rehab PT IP Eval Objective Appearance Patient Behavior Appropriate Cooperative Patient Orientation Person Place Time Difficulty following instructions none Speech Pattern Clear Ambulation Patient Able to Ambulate Yes Ambulation Observation IP General Gait Pattern Observation Wide Based Gait Ambulation Distance (feet) 5 Ambulation Assistive Device Rolling Walker Balance Ability to Arise Able, uses arms to help Sitting Balance Steady, safe Standing Balance Steady, wide stance Dynamic Sitting Balance Ability Normal Dynamic Standing Balance Ability Fair Transfers Sit to Stand Chair Transfer Ability Independent Rehab PT IP prob,goals,plan Problems Date of Evaluation: 08/11/17 Rehab Potential Rehab Potential Innapropriate for Skilled Therapy Discharge Plan PT Discharge Plan Pt to return home w/ family G -code Required Yes Eval Complexity Eval Charge Codes 98787 - Moderate Complexity G Codes PT Current Status Mobility PT Current Status Modifier CJ-At least 20% but less than 40% impaired, limited or restricted PT Goal Status Mobility PT Goal Status Modifer CJ-At least 20% but less than 40% impaired, limited or restricted PHYSICIAN CERTIFICATION: I certify the specified therapy services for Emiliana Barriga are required, authorized, and reviewed every 30 days.
--- NOTE | 2017-08-11 13:06 | HMH.OTEV ---
Physical Therapy Evaluation Rehab OT IP Evaluation Start: 08/11/17 10:06 Freq: ONCE Status: Complete Protocol: Document 08/11/17 12:50 [place] (Rec: 08/11/17 12:55 [facility] [id number]) Rehab OT IP Assessment Subjective History Pt is an 82 year old female who lives with her daughter. Pt reports she is independent with all ADL's such as dressing, bathing (sponge baths only), and feeding herself. However, she is dependent upon her daughter for completion of IADL's such as cooking, cleaning, and laundry. Pt did inform therapist she is able to cook small meals in the kitchen when she is in her motorized wheelchair. Pt also reports she does no ambulate much. Most of the time she only walks from her bedroom to her chair and then back to her bedroom when she is finished sitting up. She keeps a bsc right beside her chair and another one beside her bed. She utilizes a walker when walking from bed to chair and back. Pt is on 4 L of oxygen at all times. Subjective I don't get around much ever. Objective Upper Extremity Gross ROM WNL Bed Mobility bed mobility-scooting bed mobility - supine/sit bed mobility - rolling Assist Level Contact Guard/Hand Hold Transfer Training Sit/Stand Transfer Assist Level Supervision/Stand by Chair Transfer Ability Supervision/Stand by Chair Transfer Technique Sit to/from Ambulatory Chair Transfer Assistive Devices Rolling Walker Self care skills fully toilet trained uses utensils to feed self Feeding Ability Independent Upper Body Dressing Ability Independent Performing Toilet Hygiene Ability Independent Overall Commode/Toilet Transfer Ability Standby Assistance Commode/Toilet Transfer Technique Sit to/from Ambulatory decrease in endurance Yes: COPD Rehab OT IP prob,goals,plan Problems Date of Evaluation: 08/11/17 Other OT pr
--- NOTE | 2017-08-11 13:32 | HMH.PHACONS ---
- Pharmacy Consult Date: 08/11/17 Time: 13:32 Referring provider: DR. HINES Reason for Consult:: VANCOMYCIN DOSING Allergies and ADEs:: Allergies Allergy/AdvReac Type Severity Reaction Status Date / Time morphine [MORPHINE] Allergy Unknown Verified 07/30/17 08:09 Home Medications:: Home Medications Medication Instructions Recorded Confirmed Type Albuterol Sulfate [Albuterol 1 vial IH Q6HP PRN 07/02/17 08/10/17 History 0.083% 2.5mg/3mL neb] Cholecalciferol (Vitamin D3) 50,000 unit PO WE 07/02/17 08/10/17 History [Vitamin D3 50,000 unit Cap] Fluoxetine HCl 40 mg PO DAILY 07/02/17 08/10/17 History Folic Acid [Folic Acid 1mg tablet] 1 mg PO DAILY 07/02/17 08/10/17 History Furosemide [Furosemide 80mg Tab] 80 mg PO DAILY 07/02/17 08/10/17 History Gabapentin [Gabapentin 300mg Cap] 300 mg PO TID 07/02/17 08/10/17 History Isosorbide Dinitrate 30 mg PO BID 07/02/17 08/10/17 History Levothyroxine Sodium 25 mcg PO DAILY 07/02/17 08/10/17 History [Levothyroxine 25mcg (0.025mg) Tab] Lisinopril [Lisinopril 20mg Tab] 20 mg PO DAILY 07/02/17 08/10/17 History Omeprazole [Omeprazole 20mg 20 mg PO DAILY 07/02/17 08/10/17 History Capsule] Rivaroxaban [Xarelto 10mg tablet] 15 mg PO DAILY 07/02/17 08/10/17 History Simvastatin [Zocor] 20 mg PO HS 07/02/17 08/10/17 History Tramadol HCl [Ultram 50mg 50 mg PO TIDP PRN 07/02/17 08/10/17 History tablet] Azithromycin [Zithromax 250mg 250 mg PO DIRECTED 07/22/17 08/10/17 History tab] Height: 1.68 m Weight: 141.719 kg Laboratory Results:: Laboratory Results - last 24 hr 08/10/17 14:45: WBC 23.3 H*, RBC 3.18 L, Hgb 9.2 L D, Hct 28.9 L, MCV 91.0, MCH 28.6, MCHC 31.4 L, RDW 16.6, Plt Count 78 L D, MPV 9.7, Neut % (Auto) 93.4 H, Lymph % (Auto) 4.5 L, Falls % (Auto) 1.9, Eos % (Auto) 0.2, Baso % (Auto) 0.1, Neut # (Auto) 21.8 H, Lymph # (Auto) 1.0, Falls # (Auto) 0.5, Eos # (Auto) 0.0, Baso # (Auto) 0.0, Total Counted 100, Neutrophils % (Manual) 86 H, Band Neutrophils % 3.0, Lymphocytes % (Manual) 7 L, Monocytes % (Manual) 1 L, Metamyelocytes % 3.0 H, Platelet Estimate Marked decrease, RBC Morphology Normal 08/10/17 14:45: Sodium 139, Potassium 4.8, Chloride 101, Carbon Dioxide 33 H, Anion Gap 9.8, BUN 43 H D, Creatinine 2.12 H D, Estimated Creat Clear 20, Estimated GFR 22 L, Est GFR ( Amer) 27 L D, Glucose 140 H 08/11/17 10:30: WBC 17.6 H, RBC 3.18 L, Hgb 9.1 L, Hct 28.9 L, MCV 91.0, MCH 28.5, MCHC 31.3 L, RDW 16.5, Plt Count 83 L, MPV 10.1, Neut % (Auto) 89.6 H, Lymph % (Auto) 7.6 L, Falls % (Auto) 2.2, Eos % (Auto) 0.4, Baso % (Auto) 0.1, Neut # (Auto) 15.8 H, Lymph # (Auto) 1.3, Falls # (Auto) 0.4, Eos # (Auto) 0.1, Baso # (Auto) 0.0, Total Counted 100, Neutrophils % (Manual) 89 H, Lymphocytes % (Manual) 8 L, Monocytes % (Manual) 2, Eosinophils % (Manual) 1, Platelet Estimate Moderate decrease, Hypochromasia 2+ 08/11/17 10:30: Sodium 140, Potassium 5.0, Chloride 103, Carbon Dioxide 36 H, Anion Gap 6.0, BUN 42 H, Creatinine 1.85 H, Estimated Creat Clear 23, Estimated GFR 26 L, Est GFR ( Amer) 32 L, Glucose 116 H Medical History: Reports:: Atrial Fibrillation, Congestive Heart Failure, Chronic Obstructive Pulmonary Disease (COPD), Deep Vein Thrombosis, Hyperlipidemia, Hypertension Denies:: Cancer, Diabetes Mellitus Type 1, Diabetes Mellitus Type 2, Internal Pacemaker, MRSA Assessment and Plan (1) Pneumonia Current visit: Yes Status: Acute Qualifiers: Category: Medical Code(s): J18.9 - Pneumonia, unspecified organism - Assessment and plan all Dx Assessment and Plan for all problems:: BASED ON PATIENT'S FACTORS, RECOMMEND STARTING WITH VANCOMYCIN 2250 MG Q36H AT THIS TIME. PHARMACY WILL FOLLOW DAILY AND ADJUST APPROPRIATE. JOI BENJAMIN, PHARMD
--- NOTE | 2017-08-11 18:43 | PC.NURSE ---
82 YEAR OLD WHITE FEMALE PRESENTED TO THE HOSPITAL ON 08/09 WITH A DIAGNOSIS OF HEALTH CARE ACQUIRED PNEUMONIA. SHE HAS A PICC LINE IN THE LEFT UPPER ARM AND PICC LINE DRESSING CHANGED TODAY PER ORDER. THE PATIENT TOLERATED THE PROCEDURE WELL. SHE HAS BEEN UP IN CHAIR TWICE TODAY WITH NO COMPLAINTS OF PAIN OR DISCOMFORT NOTED. SHE CONTINUES IV FLUIDS AT 50ML AN HOUR AND STARTED IV VANCOMYCIN TODAY. SHE IS ON 4 LITERS OF OXYGEN AND DUONEBS, SHE DID HAVE A FRANKLIN CATHETER AND THIS WAS DISCONTINUED THIS AM PER MD ORDER. DIMINISHED LUNG SOUNDS IN THE BASES. SCATTERED WHEEZING NOTED IN THE RUL. WILL CONTINUE TO MONITOR. KRYS FERMIN, MSN, RN
--- NOTE | 2017-08-11 23:59 | PC.NURSE ---
Pt iv pump kept alarming there was an occlusion. Inspected IV tubing and PICC site. Noted to have several kinks in the tubing as well as the catheter of picc line. New picc line dressing placed at this time using sterile technique. checked to make sure position was good and free of any kinks in catheter. iv tubing changed and new bag/tubing in place at this time. will continue to monitor.
[2017-08-12] VITALS (7 sets, daily range): BP systolic 81–117; BP diastolic 43–87; PULSE 80–93; RESP 18–20; TEMP 36.3–36.8; O2SAT 86–100
--- NOTE | 2017-08-12 04:52 | PC.NURSE ---
BLOOD DRAWN FROM PIC AT THIS TIME FOR LAB DRAW
--- NOTE | 2017-08-12 05:02 | PC.NURSE ---
Pt has rested fairly well this shift. She has complained of mild to moderate pain in the right arm, mostly with use of it. She denies hurting it, or any injury to it, stated I think I just slept on it wrong the night before . Pt was medicated with Tylenol per mar for the discomfort, and rested well afterwards. Pt has been getting up to bsc with standby assist to void, tolerating well. Pt does continue to get mildly soa with exertion. Refused the offer for a bath this shift. O2 remains in place at this time, currently on 3.5L per NC. LS diminished t/o. Pt has had a hacky cough intermittently this shift, but has not produced any sputum. Denies any cp or soa at rest. Refused to wear her cpap tonight. Abd is soft and non tender, with + BS in all quads. Voiding without difficulty. Bp has been low intermittently this shift, but remains within the trend over the past couple of shifts. Pt reports no distress at this time, no acute changes noted. PICC line remains patent, and infusing well. Dressing changed this shift along with IV tubing. Will continue to monitor for any further changes.
--- NOTE | 2017-08-12 12:04 | SW/DCPLANNER ---
Addendum entered by Sarah Katz 08/12/17 16:00: Patient has been set up with [facility]. I have spoke with Esther and services will begin tomorrow 08/13/17. Original Note: Patient information has been faxed to [employer] regarding patients copay. Arlette from [employer] has stated that patient will have a copay of $2/week. I have discussed this with patients daughter (Denise Landaverde). Patient will need VANC every 36 hours for 10 days. Daughter has also requested that patient be transported via ambulance and is aware that patient could be billed for this transportation. I will set patient up with [facility] once discharge orders are in for this patient.
--- NOTE | 2017-08-12 12:05 | PC.NURSE ---
Report given from Patrice Vallecillo RN. pt remains at baseline, remains the same as prior assessment, will continue to monitor
--- NOTE | 2017-08-12 14:27 | HMH.DCSUM ---
General - General Admission date: 08/09/17 Discharge date: 08/12/17 HPI HPI: Ms. Ortiz is an 82-year-old woman who has the significant past history of atrial fibrillation, congestive heart failure, COPD and obstructive sleep apnea who was in an assisted-living facility for physical therapy after her most recent hospitalization for apparent pneumonia. She had presented in late May with increased dyspnea and occasional cough, I understand. In June, she developed increase in the cough and dyspnea associated with blood-streaked sputum. She was admitted for bilateral pneumonia and seemed to respond to corticosteroid and antibiotic therapy. She was discharged to [facility] for [facility]. A day or 2 ago, she suddenly felt quite weak and then had a bed shaking chill associated with a cough which was productive of blood-streaked sputum. She became more short of breath and was admitted here. Since admission, she has improved significantly. She has no cough at all now and no chest pain. She still feels weak. She has had no abdominal pain, nausea or vomiting.She has chronic diffuse osteoarthritis. She's had no urinary symptoms or rash or neurological complaints. Ms. Ortiz began smoking when she was quite young but never smoked more than a package of cigarettes a week. She quit about 7 years ago. She was diagnosed with COPD a few years ago and has been on home oxygen and nebulized therapy. Objective Vital signs: Temp Pulse Resp BP Pulse Ox 98.1 F 88 20 117/87 94 L 08/12/17 11:37 08/12/17 11:37 08/12/17 11:37 08/12/17 11:37 08/12/17 11:37 no acute distress - *Routine HEENT Exam Head: Present: normocephalic Eye: Present: PERRL ENT: Present: mucous membranes moist - *Routine Neck Exam Present: supple, full ROM - *Routine Respiratory Exam Present: diminished air movement - *Routine Cardiovascular Exam Present: irregular rhythm - *Routine Abdominal Exam Present: soft, normoactive bowel sounds - *Routine Extremities Exam Present: full ROM. Absent: cyanosis, edema - *Routine Skin Exam Present: intact - *Routine Neurological Exam Present: alert, oriented X3, CN II-XII intact - Routine Psychiatric Exam Present: normal affect, normal thought process Hospital Course Hospital Course: ct report: IMPRESSION: 1. Extensive right upper lobe pneumonia with small right effusion. 2. Left thyroid nodule. 3. Mildly enlarged mediastinal lymph node chest x ray Right upper lobe pneumonia Iv antibotics- vanc every 36 hours per home health. pt does not want to go to back to [facility] will go home with daughter. DS: Diagnosis - Discharge Diagnosis (1) CAP (community acquired pneumonia) Status: Acute Discharge Plan - Patient Discharge Instructions ACTIVITY: Continue current activity DIET: continue same diet Patient Instructions: Low-Sodium Diet, Replacing Sweetened Drinks with Noncaloric Drinks May Aid in Weight Loss - Follow up Plan Follow up with: Mike Roper MD [Primary Care Provider] - 2 weeks Disposition: Home, Self-Skilled Nursing Medications: Home Medications Medication Instructions Recorded Confirmed Type Albuterol Sulfate [Albuterol 1 vial IH Q6HP PRN 07/02/17 08/10/17 History 0.083% 2.5mg/3mL neb] Cholecalciferol (Vitamin D3) 50,000 unit PO WE 07/02/17 08/10/17 History [Vitamin D3 50,000 unit Cap] Fluoxetine HCl 40 mg PO DAILY 07/02/17 08/10/17 History Folic Acid [Folic Acid 1mg tablet] 1 mg PO DAILY 07/02/17 08/10/17 History Furosemide [Furosemide 80mg Tab] 80 mg PO DAILY 07/02/17 08/10/17 History Gabapentin [Gabapentin 300mg Cap] 300 mg PO TID 07/02/17 08/10/17 History Isosorbide Dinitrate 30 mg PO BID 07/02/17 08/10/17 History Levothyroxine Sodium 25 mcg PO DAILY 07/02/17 08/10/17 History [Levothyroxine 25mcg (0.025mg) Tab] Lisinopril [Lisinopril 20mg Tab] 20 mg PO DAILY 07/02/17 08/10/17 History Omeprazole [Omeprazole 20
== END 2017-08-12 21:25 | disposition home health service (06) | DRG 195 ==
LOC: ER 18:12 → 2ND 20:36
PROVIDERS: Admitting Provider Emergency Medicine; Emergency Provider Emergency Medicine; Family Provider Nurse Practitioner Family; PCP Emergency Medicine; Visit Provider Emergency Medicine
DX: J18.9 Pneumonia, unspecified organism (principal); I48.91 Unspecified atrial fibrillation; I50.9 Heart failure, unspecified; F44.9 Dissociative and conversion disorder, unspecified; G47.33 Obstructive sleep apnea (adult) (pediatric); Z99.81 Dependence on supplemental oxygen
CPT/HCPCS: 36569; 71045; 71250; 80048; 80053; 81001; 81025; 82803; 83615; 83690; 83880; 84484; 85007; 85025; 85610; 85730; 86850; 87040; 87077; 87086; 87186; 87275; 87276; 93005; 93041; 94640; 94760; 94761; 96365; 97162; 97165; 99284; 99285; C1751; J0692; J1956; J3370

== ENCOUNTER → 2017-08-25 14:58 | Outpatient (REF) | payer MEDICARE, OTHER, SELFPAY ==
[2017-08-25 19:24] LABS: Amphetamine/Metha Screen,Urine Negative ng/mL (<1000); Barbiturates Screen,Urine Negative ng/mL (<200); Benzodiazepines Screen,Urine Negative ng/mL (200); Cannabinoid Screen,Urine Negative ng/mL (<50); Cocaine Screen,Urine Negative ng/g (<300); Methadone Screen,Urine Negative ng/mL (<300); Opiate Screen,Urine Negative ng/mL (<300); Phencyclidine Screen,Urine Negative ng/mL (<25)
[2017-08-27 11:38] LABS: Microalbumin, Urine 44.8 ug/mL (Not Estab.)
== END ==
LOC: LAB 14:58
PROVIDERS: Visit Provider Nurse Practitioner Family
DX: Z79.899 Other long term (current) drug therapy (principal); E11.9 Type 2 diabetes mellitus without complications
CPT/HCPCS: 80305; 82043

== ENCOUNTER → 2018-02-09 16:00 | Outpatient (REF) | payer MEDICARE, SELFPAY ==
[2018-02-09 19:30] LABS: Basophils % 0.2 % (0.1-2.0); Eosinophils # 0.2 K/mm3 (0.0-0.4); Eosinophils % 2.9 % (0.1-12.0); Hematocrit 35.6 % (37.0-47.0); Lymphocytes # 1.2 K/mm3 (0.7-4.5); Lymphocytes % 18.8 K/mm3 (10-50); Mean Corpuscular HGB Conc 30.9 g/dL (31.8-35.4); Mean Corpuscular Hemoglobin 28.8 pg (27.0-31.2); Mean Corpuscular Volume 93.1 fl (81-99); Mean Platelet Volume 8.1 fl (7.4-10.4); Monocytes # 0.2 K/mm3 (0.1-1.0); Monocytes % 3.5 % (1.7-9.3); Neutrophils # 4.9 K/mm3 (1.8-7.8); Neutrophils % 74.5 % (37.0-80.0); Platelet Count 136 K/mm3 (142-424); Red Blood Count 3.83 M/mm3 (4.20-5.40); White Blood Count 6.6 K/mm3 (4.8-10.8)
[2018-02-09 20:05] LABS: Alanine Aminotransferase 16 U/L (12-78); Alkaline Phosphatase 88 U/L (46-116); Anion Gap 6.1 mEq/L (5-15); Aspartate Amino Transferase 6 U/L (15-37); Bilirubin,Total 0.5 mg/dL (0.2-1.0); Blood Urea Nitrogen 21 mg/dL (7-18); Calcium 9.1 mg/dL (8.5-10.1); Carbon Dioxide 36 mmol/L (21.0-32.0); Chloride 107 mmol/L (98-107); Chol/HDL Ratio 3.2 (1-3.5); Cholesterol 164 mg/dL (140-200); Estimated Glomerular Filt Rate 53 ml/min (>60); GFR (African American) 65 ML/MIN (>60); Globulin 2.9 gm/dl (1.3-3.2); Glucose 94 mg/dL (74-106); HDL Cholesterol 52 mg/dL (29-89); LDL Cholesterol 97 mg/dL (0-130); Potassium 5.1 mmoL/L (3.5-5.1); Sodium 144 mmol/L (136-145); T4 (Thyroxine) 7.2 ug/dl (4.7-13.3); Thyroid Stimulating Hormone 1.95 uIU/ml (0.358-3.740); Total Protein,Serum 5.9 gm/dL (6.4-8.2); Triglycerides 77 mg/dL (30-200); VLDL Cholesterol 15 mg/dL (0-40)
[2018-02-11 09:11] LABS: Vitamin D 25 Hydroxy 17.8 ng/mL (30.0-100.0)
== END ==
LOC: LAB 16:00
PROVIDERS: Visit Provider Nurse Practitioner Family
DX: I50.9 Heart failure, unspecified (principal); I48.91 Unspecified atrial fibrillation; R53.83 Other fatigue
CPT/HCPCS: 80053; 80061; 82652; 84436; 84443; 85025

== ENCOUNTER 2018-03-10 14:42 | Inpatient (IN) ==
[2018-03-10 15:02] LABS: Basophils % 0.2 % (0.1-2.0); Eosinophils # 0.1 K/mm3 (0.0-0.4); Eosinophils % 1.8 % (0.1-12.0); Lymphocytes # 1.1 K/mm3 (0.7-4.5); Mean Corpuscular HGB Conc 30.6 g/dL (31.8-35.4); Mean Corpuscular Hemoglobin 27.9 pg (27.0-31.2); Mean Corpuscular Volume 91.3 fl (81-99); Mean Platelet Volume 7.8 fl (7.4-10.4); Monocytes # 0.3 K/mm3 (0.1-1.0); Neutrophils # 4.3 K/mm3 (1.8-7.8); Platelet Count 155 K/mm3 (142-424); Red Blood Count 2.42 M/mm3 (4.20-5.40); Red Cell Distribution Width 16.6 % (11.5-17.5); White Blood Count 5.8 K/mm3 (4.8-10.8)
[2018-03-10 15:06] LABS: Hemoglobin 6.7 g/dL (12.2-16.2)
[2018-03-10 15:07] LABS: Hematocrit 22.1 % (37.0-47.0)
[2018-03-10 15:17] LABS: Albumin Level 2.8 gm/dL (3.4-5.0); Albumin/Globulin Ratio 0.8 (1.1-1.8); Bilirubin,Total 1.4 mg/dL (0.2-1.0); Calcium 9.1 mg/dL (8.5-10.1); Globulin 3.6 gm/dl (1.3-3.2); Total Protein,Serum 6.4 gm/dL (6.4-8.2)
[2018-03-10 15:27] LABS: INR 0.99 (0.9-1.1); Prothrombin Time 10.2 seconds (9.4-11.8)
[2018-03-10 16:38] LABS: Appearance,Urine SL CLOUDY (Clear); Bilirubin,Urine Negative (Negative); Blood, Urine TRACE-L (Negative); Color,Urine YELLOW (Yellow); Glucose,Urine (UA) Negative (Negative); Ketones,Urine Negative (Negative); Leukocyte Esterase,Urine Negative (Negative); Microscopic, Urine URINE MICROSCOPIC (MICROSCOPIC); PH,Urine 6.5 (5.0-8.5); Protein,Urine Negative (Negative)
[2018-03-10 16:48] LABS: Bacteria,Urine 1+ /lpf; Squamous Epithelial Cell,Urine Occasional #/hpf (0-5)
--- NOTE | 2018-03-10 18:23 | Emergency Department Note ---
ED Disposition Clinical Impression: Severe anemia, Right renal mass, Community acquired pneumonia, CHF (congestive heart failure), A-fib Disposition: Admitted As Inpatient Condition on Discharge: Serious - Critical Care Critical Care Time: Yes Attestation: On 03/10/18, the high probability of a clinically significant, sudden or life threatening deterioration of the following system(s) required my full and direct attention, intervention and personal management. The time I documented below is in addition to time spent performing reported procedures but includes the following listed in this critical care notation. Total Critical Care Time: 90 Vital system(s) involved:: Circulatory Failure, Central Nervous System, Respiratory Failure, Shock (Hemorrhage) My critical care processes included: Assessment & monitoring of V/S, Initial and Re-exams, Data Review/Interpretation, Coordinating Care, Medication Orders and management Comment: Discussed case with her admitting physician installation service representative (Dr. Sahu). SBAR given. Patient admitted to his care for farther management and monitoring. Patient remained stable during her ED care. Medical Decision Making - Medical Records Medical records reviewed: Yes: I reviewed the patient's medical records. - Blu Inquiry Pt receiving controlled substance: No Blu was queried for this patient: No Vital Signs: 03/10/18 14:43 03/10/18 15:47 03/10/18 16:41 Temperature 98.1 F Temperature Source Oral Pulse Rate [Left Radial] 107 H 87 82 Respiratory Rate 22 19 18 Blood Pressure [Right Arm] 138/64 104/94 112/87 Blood Pressure Mean [Right Arm] 88 97 95 Blood Pressure Source [Right Arm] Automatic Cuff Automatic Cuff Automatic Cuff Blood Pressure Position [Right Arm] Sitting Sitting Supine 02 Sat by Pulse Oximetry 92 L 90 L 100 Oxygen Delivery Method Nasal Cannula Nasal Cannula Nasal Cannula Oxygen Flow Rate (LPM) 3 6 6 - Lab Data Lab Results 03/10/18 14:50: WBC 5.8, RBC 2.42 L, Hgb 6.7 L*, Hct 22.1 L*, MCV 91.3, MCH 27.9, MCHC 30.6 L, RDW 16.6, Plt Count 155, MPV 7.8, Neut % (Auto) 74.0, Lymph % (Auto) 19.0, [place] % (Auto) 5.0, Eos % (Auto) 1.8, Baso % (Auto) 0.2, Neut # (Auto) 4.3, Lymph # (Auto) 1.1, [place] # (Auto) 0.3, Eos # (Auto) 0.1, Baso # (Auto) 0.0 03/10/18 14:50: Sodium 144, Potassium 5.0, Chloride 104, Carbon Dioxide 39 H, Anion Gap 6.0, BUN 27 H, Creatinine 1.26 H, Estimated Creat Clear 33, Estimated GFR 41 L, Est GFR ( Amer) 49 L, Glucose 123 H, Calcium 9.1, Total Bilirubin 1.4 H, AST 9 L, ALT 12, Alkaline Phosphatase 98, Total Protein 6.4, Albumin 2.8 L, Globulin 3.6 H, Albumin/Globulin Ratio 0.8 L 03/10/18 14:50: Lactate 0.8 03/10/18 14:50: PT 10.2, INR 0.99, APTT 30.0 03/10/18 14:50: B-Natriuretic Peptide 420 H 03/10/18 15:30: Stool Occult Blood Negative 03/10/18 15:55: Blood Type O Negative, Antibody Screen Negative, Crossmatch (AHG) See Detail 03/10/18 16:35: Urine Color Yellow, Urine Appearance Sl cloudy, Urine pH 6.5, Ur Specific [place] 1.010, Urine Protein Negative, Urine Glucose (UA) Negative, Urine Ketones Negative, Urine Blood Trace-l, Urine Nitrate Negative, Urine Bilirubin Negative, Urine Urobilinogen 4.0, Ur Leukocyte Esterase Negative, Urine WBC 3-5, Ur Squamous Epith Cells Occasional, Urine Bacteria 1+ Result diagrams: 03/10/18 14:50 03/10/18 14:50 Orders (Tests/Meds): ED MEDICATIONS Generic Name Dose Route Start Last Admin Trade Name Freq PRN Reason Stop Dose Admin Albuterol Sulfate 2.5 mg 03/10/18 17:43 Albuterol 0.083% 2.5mg/3ml Neb IH 04/09/18 17:42 Q6HP PRN Shortness Of Breath Azithromycin 500 mg 03/11/18 09:00 Zithromax 250mg Tablet PO 03/15/18 08:59 DAILY JAKOB Protocol Ergocalciferol 50,000 unit 03/10/18 17:45 Drisdol 50,000 Units (1.25mg) Capsule PO 04/09/18 17:44 QWEEK JAKOB Furosemide 80 mg 03/11/18 09:00 Lasix 80mg Tablet PO 04/10/18 08:59 DAILY JAKOB Gabapentin 400 mg 03/10/18 21:00 Neurontin 400mg Capsule PO 04/09/18 20:59 TID JAKOB Sodium Chloride 250 mls @ 25 mls/hr 03/10/18 15:45 03/10/18 16:00 Sod Chlor 0.9% 250ml Bag IV 03/11/18 15:44 25 mls/hr .Q10H JAKOB Administration Pantoprazole Sodium 80 mg/ 100 mls @ 10 mls/hr 03/10/18 15:45 03/10/18 16:00 Sodium Chloride IV 03/13/18 15:44 10 mls/hr .Q10H JAKOB Administration Ceftriaxone Sodium 1 gm/ 50 mls @ 100 mls/hr 03/10/18 17:45 03/10/18 18:14 Sodium Chloride IV 03/24/18 17:44 100 mls/hr Q24H JAKOB Administration Protocol Levothyroxine Sodium 25 mcg 03/11/18 09:00 Synthroid 25mcg (0.025mg) Tablet PO 04/10/18 08:59 DAILY JAKOB Metoprolol Succinate 12.5 mg 03/10/18 21:00 Toprol Xl 25mg Tablet PO 04/09/18 20:59 BID JAKOB Non-Formulary Medication 40 mg 03/11/18 09:00 Fluoxetine Hcl [Fluoxetine Hcl] PO 04/10/18 08:59 DAILY JAKOB Non-Formulary Medication 20 mg 03/11/18 09:00 Omeprazole [Omeprazole 20mg Capsule] PO 04/10/18 08:59 DAILY JAKOB Non-Formulary Medication 20 mg 03/10/18 17:45 Simvastatin [Simvastatin] PO 04/09/18 17:44 QPM JAKOB Sodium Chloride 10 ml 03/10/18 16:19 03/10/18 16:20 Rad-Saline Flush 10ml Syringe IV 04/09/18 16:18 10 ml NEEDED PRN Administration Maintain IV Site Discontinued Medications Generic Name Dose Route Start Last Admin Trade Name Freq PRN Reason Stop Dose Admin Iopamidol 75 ml 03/10/18 16:19 03/10/18 16:19 [id number]; 75ml Vial IV 03/10/18 16:20 75 ml ONCE ONE Administration Protocol ORDERS Category Date Time Status Transfuse RBC's [Red Blood Cells] Stat BBK 03/10/18 15:55 Results Type and Screen Stat BBK 03/10/18 15:55 Results Occult Blood,Stool Stat Lab 03/10/18 15:30 Ordered Urinalysis and Microscopic Stat Lab 03/10/18 16:35 Ordered Blood Culture Stat Micro 03/10/18 14:50 Received 12-lead EKG Request [ECG Request by Dr/Nse] Stat Y 03/10/18 14:47 Ordered Weakness HPI - General Chief complaint: Weakness Stated complaint: weakness Time Seen by Provider: 03/10/18 14:44 Mode of Arrival: EMS Source of Information: Patient, Relative Limitations: Physical Limitations Description of Symptoms (Recalled from ER Triage Doc. by RN): to ed per squad pt c/o generalized weakness seen this week at [facility] dx with uti. pt also c/o SOB wears o2 18/01. - History of Present Illness MD Complaint: generalized weakness Onset (ago): day(s) Duration: constant Migration: none Severity scale (1-10): 5 Relieving factors: none Exacerbating factors: none - Related Data Home Medications Medication Instructions Recorded Confirmed Apixaban [Eliquis] 5 mg PO BID 03/10/18 03/10/18 Ergocalciferol (Vitamin D2) 50,000 unit PO QWEEK 03/10/18 03/10/18 [Drisdol] Gabapentin [Gabapentin 400mg Cap] 400 mg PO TID 03/10/18 03/10/18 Metoprolol Succinate 12.5 mg PO BID 03/10/18 03/10/18 Simvastatin 20 mg PO QPM 03/10/18 03/10/18 Previous Rx's Medication Instructions Recorded albuterol sulfate 2.5 mg/3 mL 2.5 mg INHALATION Q6HP PRN #3 ml 08/25/17 (0.083 %) solution for nebulization omeprazole 20 mg capsule,delayed 20 mg PO DAILY #90 cap 08/25/17 release fluoxetine 40 mg capsule 40 mg PO DAILY #30 cap 01/13/18 furosemide 80 mg tablet 80 mg PO DAILY #30 tab 01/13/18 levothyroxine 25 mcg tablet 25 mcg PO DAILY #30 tab 01/13/18 Allergies Allergy/AdvReac Type Severity Reaction Status Date / Time morphine [MORPHINE] Allergy Unknown Verified 02/09/18 09:00 [facility] History I have reviewed the patient's past medical history: Yes (Was here last year for similar symptoms, was anemic. Received PRBC transfus) Medical History: Reports:: Atrial Fibrillation, Congestive Heart Failure, Chronic Obstructive Pulmonary Disease (COPD), Deep Vein Thrombosis, Hyperlipidemia, Hypertension Denies:: Cancer, Diabetes Mellitus Type 1, Diabetes Mellitus Type 2, Internal Pacemaker, MRSA Other Medical History: Reports: Cataracts, Glaucoma, Thyroid Disease Other Surgeries: Yes: Skin Cancer Excision, Other (GALL BLADDER REMOVED). No: Pacemaker Amputation: No Fractures: Yes (right ankle) - Social History Smoking Status: Never smoker Tobacco Type: cigarettes Alcohol Intake: never Substance Use Type: denies use Occupational Status: retired Housing: assisted living facility Household Members: family Comment: Ms. Ortiz has 1/8 grade education and can read and write well. She left school to help her mother with her grandmother. Her of many years a few years ago of a heart attack. She has been living with 1 of her daughters. Of her 5 children, a son of a disseminated cancer. She has 5 healthy grandchildren and 10 healthy great-grandchildren. She has no stairs to climb in her daughter's home. There are several dogs there. - Psychiatric History Expresses thoughts of harming self/others: None Suicide Plan Description: No Plan Family Hx:: Cancer, Hyperlipidemia, Hypertension Comment: Her father of lung cancer in his early 50s and her mother of "old age" and Alzheimer's disease. There is no family history of any chronic lung disease. ROS Obtained: Yes All systems reviewed & no additional complaints Physical Exam - General General appearance: alert, in no apparent distress - Head Head exam: atraumatic, normocephalic, normal inspection - Eye Eye exam: Present: normal appearance, PERRL, EOMI - ENT ENT exam: Present: normal exam, normal oropharynx, mucous membranes moist, TM's normal bilaterally, normal external ear exam - Neck Neck exam: Present: normal inspection, full ROM, trachea midline. Absent: meningismus, lymphadenopathy - Chest Chest inspection: Present: normal inspection, symmetric chest wall rise. Absent: tenderness - Respiratory Respiratory exam: Present: normal lung sounds bilaterally. Absent: respiratory distress - Cardiovascular Cardiovascular exam: Present: regular rate, normal rhythm. Absent: JVD - Abdominal Exam Abdominal exam: Present: soft, distention, tenderness (Mild diffuse tenderness to palpation), normal bowel sounds. Absent: guarding, rebound, rigidity - Extremities Exam Extremities exam: Present: normal inspection, full ROM, normal capillary refill. Absent: calf tenderness - Neurological Exam Neurological exam: Present: alert, oriented X3 - Psychiatric Psychiatric exam: Present: normal affect, normal mood - Skin Skin exam: Present: warm, dry, intact, normal color - Lymphatic Lymphatic Findings: no adenopathy
[2018-03-11 00:31] LABS: Hematocrit 24.7 % (37.0-47.0)
[2018-03-11 00:36] LABS: Hemoglobin 7.6 g/dL (12.2-16.2)
--- NOTE | 2018-03-11 07:45 | Pharmacy Consult Notes ---
[facility] Pharmacy VTE Monitoring - Patient Demographics Admission date: 03/10/18 Report Date: 03/11/18 Time: 07:45 Allergies/Adverse Reactions: Patient Allergies morphine [MORPHINE] Allergy (Unknown, Verified 02/09/18 09:00) Height: 1.68 m Weight: 136.616 kg Patient Problems: Current Active Problems CAP (community acquired pneumonia) (Acute) A-fib (Chronic) CHF (congestive heart failure) (Chronic) Severe anemia (Acute) Right renal mass (Acute) - VTE Risk Labs: VTE Related Lab Results Hgb 7.6 g/dL (12.2-16.2) L* 03/11/18 00:20 Hct 24.7 % (37.0-47.0) L 03/11/18 00:20 Plt Count 155 K/mm3 (142-424) 03/10/18 14:50 PT 10.2 seconds (9.4-11.8) 03/10/18 14:50 INR 0.99 (0.9-1.1) 03/10/18 14:50 APTT 30.0 seconds (23.6-34.0) 03/10/18 14:50 BUN 27 mg/dL (7-18) H 03/10/18 14:50 Creatinine 1.26 mg/dL (0.55-1.02) H 03/10/18 14:50 Estimated Creat Clear 33 mL/min (0-300) 03/10/18 14:50 Was VTE Risk Assessment Performed: Yes VTE Score: 11 VTE Risk Level: Moderate Risk Clinical Trial Participant: No - Prophylaxis VTE Prophylaxis Ordered?: Yes Types of VTE Prophylaxis: TEDS Knee High Location of Applied Device: Refused
[2018-03-11 08:56] LABS: Basophils % 0.2 % (0.1-2.0); Eosinophils # 0.1 K/mm3 (0.0-0.4); Eosinophils % 2.8 % (0.1-12.0); Lymphocytes % 18.9 K/mm3 (10-50); Mean Corpuscular HGB Conc 32.9 g/dL (31.8-35.4); Mean Corpuscular Hemoglobin 28.7 pg (27.0-31.2); Mean Corpuscular Volume 87.2 fl (81-99); Monocytes # 0.3 K/mm3 (0.1-1.0); Monocytes % 6.4 % (1.7-9.3); Neutrophils # 3.7 K/mm3 (1.8-7.8); Neutrophils % 71.7 % (37.0-80.0); Platelet Count 142 K/mm3 (142-424); Red Blood Count 2.45 M/mm3 (4.20-5.40); Red Cell Distribution Width 16.8 % (11.5-17.5); White Blood Count 5.1 K/mm3 (4.8-10.8)
--- NOTE | 2018-03-11 08:57 | Consult Report ---
History of Present Illness Consult date: 03/11/18 Requesting physician: Mike Roper Consult reason: shortness of breath Chief complaint: back pain, SOA Additional Medical History:: 1. Hypertension A. Echo, 06/2017, Moderate biatrial enlargement, normal left ventricular size, mild concentric left ventricular hypertrophy, visually estimated ejection fraction 55% with no obvious regional wall motion abnormality. Moderately enlarged right ventricle with mild reduced contractility. Mild mitral and tricuspid regurgitation. No significant pericardial effusion noted 2. History of congestive heart failure, recurrent 3. Remote tobacco use discontinued about 6 years ago but previous history of at least 40 pack years. A. COPD, home oxygen therapy 4. 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 Obesity, morbid 6. History of A. fib, on anticoagulation A. CHADS-VASC score of at least 5 (age, female, HTN, CHF) 7. Hypothyroidism, on replacement 8. GERD and Hiatal Hernia History of present illness: 82-year-old white female with known history of anemia, a. fib, congestive heart failure and morbid obesity was admitted through the ER last evening for right flank pain as well as shortness of breath. Patient relates 3-4 day history of right flank pain with 2-3 week history of increasing shortness of breath with activity. Patient has limited mobility due to arthritis of the knees. She reports recently being seen in the [facility] emergency room for shortness of breath and was treated and released. Workup in the ER yesterday here revealed hemoglobin of 6.9, chest x-ray evidence of congestive heart failure and possible pneumonia, elevated BNP and CT of the abdomen with evidence of kidney tumor with possible hemorrhagic component. Patient was admitted for further evaluation. She did receive 1 unit of blood overnight with improvement in her shortness of breath but not resolution. Patient denies any chest pain, pressure or tightness. Cardiology consulted for further evaluation and recommendations. Patient was admitted in June of this year for shortness of breath and anemia also. It was recommended that he have outpatient stress testing after her sh ortness of breath improved, however patient did not follow-up with these recommendations. [facility] History Medical History: Reports:: Atrial Fibrillation, Cancer (Skin cancer), Congestive Heart Failure, Chronic Obstructive Pulmonary Disease (COPD), Deep Vein Thrombosis, Hyperlipidemia, Hypertension Denies:: Diabetes Mellitus Type 1, Diabetes Mellitus Type 2, Internal Pacemaker, MRSA Other Medical History: Reports: Cataracts, Glaucoma, Thyroid Disease Other Surgeries: Yes: Cholecystectomy, Skin Cancer Excision, Other (GALL BLADDER REMOVED). No: Pacemaker Amputation: No Fractures: Yes (right ankle) - *Social History Educational Level: Attended High School Smoking Status: Former smoker Tobacco Type: cigarettes Alcohol Intake: former Alcohol Intake Frequency:: a few times a week Substance Use Type: denies use Occupational Status: retired Housing: house Household Members: family - Psychiatric History Expresses thoughts of harming self/others: None Suicide Plan Description: No Plan *Family Hx:: Cancer, Hyperlipidemia, Hypertension Meds Home Medications Medication Instructions Recorded Confirmed Type Apixaban [Eliquis] 5 mg PO BID 03/10/18 03/10/18 History Ergocalciferol (Vitamin D2) 50,000 unit PO QWEEK 03/10/18 03/10/18 History [Drisdol] Furosemide [Furosemide 80mg Tab] 80 mg PO DAILY 03/10/18 03/10/18 History Gabapentin [Gabapentin 400mg Cap] 400 mg PO TID 03/10/18 03/10/18 History Metoprolol Succinate 12.5 mg PO BID 03/10/18 03/10/18 History Simvastatin 20 mg PO QPM 03/10/18 03/10/18 History cephALEXin [cephALEXin 500mg 500 mg PO Q6H 03/10/18 03/10/18 History capsule] Clopidogrel Bisulfate [Plavix 75mg 75 mg PO DAILY 03/11/18 03/11/18 History Tab] Ergocalciferol (Vitamin D2) 50,000 unit PO WEEKLY 03/11/18 03/11/18 History [Vitamin D2] Allergies Allergy/AdvReac Type Severity Reaction Status Date / Time morphine [MORPHINE] Allergy Unknown Verified 02/09/18 09:00 Review of Systems - *Cardiovascular Reports shortness of breath, Reports shortness of breath with activity - *Respiratory Reports shortness of breath - *Gastrointestinal Reports abdominal pain - *Genitourinary Denies blood in urine - *Musculoskeletal Reports joint pain Exam Vital signs and Labs for Last 24 Hours: Temp Pulse Resp BP Pulse Ox 98.2 F 86 20 108/50 93 L 03/11/18 08:00 03/11/18 08:00 03/11/18 08:00 03/11/18 08:00 03/11/18 08:00 Laboratory Results - last 24 hr 03/10/18 14:50: WBC 5.8, RBC 2.42 L, Hgb 6.7 L*, Hct 22.1 L*, MCV 91.3, MCH 27.9, MCHC 30.6 L, RDW 16.6, Plt Count 155, MPV 7.8, Neut % (Auto) 74.0, Lymph % (Auto) 19.0, [place] % (Auto) 5.0, Eos % (Auto) 1.8, Baso % (Auto) 0.2, Neut # (Auto) 4.3, Lymph # (Auto) 1.1, [place] # (Auto) 0.3, Eos # (Auto) 0.1, Baso # (Auto) 0.0 03/10/18 14:50: Sodium 144, Potassium 5.0, Chloride 104, Carbon Dioxide 39 H, Anion Gap 6.0, BUN 27 H, Creatinine 1.26 H, Estimated Creat Clear 33, Estimated GFR 41 L, Est GFR ( Amer) 49 L, Glucose 123 H, Calcium 9.1, Total Bilirubin 1.4 H, AST 9 L, ALT 12, Alkaline Phosphatase 98, Total Protein 6.4, Albumin 2.8 L, Globulin 3.6 H, Albumin/Globulin Ratio 0.8 L 03/10/18 14:50: Lactate 0.8 03/10/18 14:50: PT 10.2, INR 0.99, APTT 30.0 03/10/18 14:50: B-Natriuretic Peptide 420 H 03/10/18 15:30: Stool Occult Blood Negative 03/10/18 15:55: Blood Type O Negative, Antibody Screen Negative, Crossmatch (AHG) See Detail 03/10/18 16:35: Urine Color Yellow, Urine Appearance Sl cloudy, Urine pH 6.5, Ur Specific [place] 1.010, Urine Protein Negative, Urine Glucose (UA) Negative, Urine Ketones Negative, Urine Blood Trace-l, Urine Nitrate Negative, Urine Bilirubin Negative, Urine Urobilinogen 4.0, Ur Leukocyte Esterase Negative, Urine WBC 3-5, Ur Squamous Epith Cells Occasional, Urine Bacteria 1+ 03/11/18 00:20: Hgb 7.6 L*, Hct 24.7 L I & O for Last 24 hours: Intake & Output 03/08/18 03/09/18 03/10/18 03/11/18 11:59 11:59 11:59 11:59 Intake Total 715 / 715 Output Total 800 / 800 Balance -85 / -85 Weight 301 lb 3 oz - *Routine Neck Exam Present: supple. Absent: JVD, carotid bruit - *Routine Respiratory Exam Present: CTA bilaterally. Absent: accessory muscle use, rales, rhonchi, wheezes - *Routine Cardiovascular Exam Present: irregularly irregular. Absent: murmur, gallop, rubs - *Routine Abdominal Exam Present: soft. Absent: tenderness, distended, guarding - *Routine Extremities Exam Absent: edema, calf tenderness - *Routine Skin Exam Present: dry, warm. Absent: cyanosis - *Routine Neurological Exam Present: alert, oriented X3, moving all extremities Assessment and Plan (1) A-fib Current visit: Yes Status: Chronic Qualifiers: Category: Medical Code(s): I48.91 - Unspecified atrial fibrillation (2) CHF (congestive heart failure) Current visit: Yes Status: Chronic Qualifiers: Category: Medical Code(s): I50.9 - Heart failure, unspecified (3) Right renal mass Current visit: Yes Status: Acute Category: Medical Code(s): N28.89 - Other specified disorders of kidney and ureter (4) Severe anemia Current visit: Yes Status: Acute Category: Medical Code(s): D64.9 - Anemia, unspecified (5) Hypertension Current visit: No Status: Chronic Qualifiers: Hypertension type: essential hypertension Qualified Code(s): I10 - Essent ial (primary) hypertension Category: Medical Code(s): I10 - Essential (primary) hypertension (6) Morbid obesity with BMI of 50.0-59.9, adult Current visit: No Status: Chronic Category: Medical Code(s): E66.01 - Morbid (severe) obesity due to excess calories; Z68.43 - Body mass index (BMI) 50-59.9 , adult (7) COPD (chronic obstructive pulmonary disease) Current visit: Yes Status: Acute Category: Medical Code(s): J44.9 - Chronic obstructive pulmonary disease, unspecified - Assessment and plan all Dx Assessment and Plan for all problems:: 1. A. fibrillation, chronic with long-term anticoagulation. Rate marginally fast, likely due to severe anemia. Continue metoprolol therapy. CHADS-VASC score of at least 5 (age, female, HTN, CHF) but with possible hemorrhagic component to right renal mass, will hold anticoagulation for now. 2. High output congestive heart failure, multifactorial including anemia, atrial fibrillation, COPD and morbid obesity. 3. Severe anemia, likely anemia of chronic disease since patient denies any recent diarrhea or blood in her stools. Recommend proceeding with second unit of blood. Will give IV Lasix 80 mg now and repeat after the second unit of blood. 4. Right renal mass, workup and evaluation per Dr. Roper. 5. Possible bilateral pneumonia, patient has been started on antibiotics. Defer management to Dr. Roper.
[2018-03-11 09:01] LABS: Hematocrit 21.3 % (37.0-47.0)
[2018-03-11 09:37] LABS: Anion Gap 9.1 mEq/L (5-15); Calcium 8.3 mg/dL (8.5-10.1); Potassium 5.1 mmoL/L (3.5-5.1)
[2018-03-11 14:57] LABS: Hematocrit 25.9 % (37.0-47.0)
[2018-03-11 15:12] LABS: Hemoglobin 7.8 g/dL (12.2-16.2)
== END 2018-03-11 17:15 | disposition short-term general hospital (02) ==
LOC: ER 14:42 → 2ND 18:12
PROVIDERS: ADMIT Internal Medicine Adolescent Medicine; ATTEND Emergency Medicine

== ENCOUNTER 2018-03-29 11:15 | Inpatient (IN) ==
--- NOTE | 2018-03-29 11:33 | Emergency Department Note ---
ED Disposition Clinical Impression: Congestive heart failure Qualifiers: Heart failure type: unspecified Heart failure chronicity: acute on chronic Qualified Code(s): I50.9 - Heart failure, unspecified Disposition: Still a Patient Condition on Discharge: Fair Referrals: Mike Roper MD [Primary Care Provider] - - Critical Care Critical Care Time: No Attestation: On , the high probability of a clinically significant, sudden or life threatening deterioration of the following system(s) required my full and direct attention, intervention and personal management. The time I documented below is in addition to time spent performing reported procedures but includes the following listed in this critical care notation. Medical Decision Making - Blu Inquiry Pt receiving controlled substance: No Vital Signs: 03/29/18 11:16 03/29/18 13:29 03/29/18 14:35 Temperature 97.6 F Temperature Source Oral Pulse Rate [Right Radial] 70 64 71 Respiratory Rate 18 Blood Pressure [Right Arm] 120/91 H 111/77 131/77 Blood Pressure Mean [Right Arm] 100 88 95 Blood Pressure Source [Right Arm] Automatic Cuff Automatic Cuff Automatic Cuff Blood Pressure Position [Right Arm] Sitting Sitting Sitting 02 Sat by Pulse Oximetry 92 L 99 91 L Oxygen Delivery Method Nasal Cannula Nasal Cannula Nasal Cannula Oxygen Flow Rate (LPM) 4 4 4 03/29/18 15:12 Temperature Temperature Source Pulse Rate [Right Radial] 66 Respiratory Rate Blood Pressure [Right Arm] 116/77 Blood Pressure Mean [Right Arm] 90 Blood Pressure Source [Right Arm] Automatic Cuff Blood Pressure Position [Right Arm] 02 Sat by Pulse Oximetry 98 Oxygen Delivery Method Nasal Cannula Oxygen Flow Rate (LPM) 4 - Lab Data Lab Results 03/29/18 13:15: WBC 4.6 L, RBC 3.04 L, Hgb 8.5 L, Hct 28.4 L, MCV 93.6, MCH 28.0, MCHC 29.9 L, RDW 16.8, Plt Count 140 L, MPV 8.3, Neut % (Auto) 74.9, Lymph % (Auto) 17.0, [place] % (Auto) 5.0, Eos % (Auto) 2.7, Baso % (Auto) 0.3, Neut # (Auto) 3.4, Lymph # (Auto) 0.8, [place] # (Auto) 0.2, Eos # (Auto) 0.1, Baso # (Auto) 0.0 03/29/18 13:15: Lactate 0.7 03/29/18 13:15: Sodium 144, Potassium 4.4, Chloride 101, Carbon Dioxide 43 H*, Anion Gap 4.4 L, BUN 34 H, Creatinine 0.93, Estimated Creat Clear 42, Estimated GFR 58 L, Est GFR ( Amer) 70, Glucose 100, Calcium 9.0, Total Bilirubin 0.7, AST 13 L, ALT 16, Alkaline Phosphatase 95, Troponin I < 0.02, Total Protein 6.8, Albumin 2.9 L, Globulin 3.9 H, Albumin/Globulin Ratio 0.7 L 03/29/18 13:15: B-Natriuretic Peptide 280 H 03/29/18 14:14: Urine Color Yellow, Urine Appearance Clear, Urine pH 8.0, Ur Specific [place] 1.010, Urine Protein Negative, Urine Glucose (UA) Negative, Urine Ketones Negative, Urine Blood Negative, Urine Nitrate Negative, Urine Bilirubin Negative, Urine Urobilinogen 4.0, Ur Leukocyte Esterase Negative, Urine RBC None, Urine WBC Occasional, Ur Squamous Epith Cells None, Urine Bacteria None Result diagrams: 03/29/18 13:15 03/29/18 13:15 Orders (Tests/Meds): ED MEDICATIONS Discontinued Medications Generic Name Dose Route Start Last Admin Trade Name Freq PRN Reason Stop Dose Admin Furosemide 80 mg 03/29/18 13:59 03/29/18 14:05 Lasix 20mg/2ml Vial IV 03/29/18 14:00 80 mg ONCE ONE Administration ORDERS Category Date Time Status Urinalysis and Microscopic Stat Lab 03/29/18 14:14 Ordered Blood Culture Stat Micro 03/29/18 11:34 Ordered - Radiology Data #1 Image(s): Chest Image Reviewed: Yes I reviewed the patient's radiology image chf, R effusion, cardiomegaly - ECG Data Tracing #1 EKG interpreted by Vargas Awad MD: Rhythm: Atrial fibrillation with controlled response Rate: 65 [place]: normal Ectopy: none Conduction: Incomplete right bundle branch block ST Segment Changes: none T Wave Changes: none Q Waves: none No evidence of acute ischemia or injury Low voltage QRS - Physician Consults Physician Consulted: Jacquelin Time: 15:22 Reason -: Admission Comment/Response: Agrees to admit the patient to the hospital. We discussed the patient's clinical information, including history, exam, laboratory and radiology results and ED course. Per hospital procedure, I will write temporary bridge inpatient orders on the patient. Specific orders requested by the admitting physician: Xopenex, Lasix 120 mg IV daily, cardiology consult, echo in the morning Medical Decision Narrative: Doubt pneumonia. No fever, no cough, no sputum production, normal WBC. Likely asymmetric pulmonary edema. General Adult HPI - General Chief complaint: Shortness of Breath/Dyspnea Stated complaint: Shortness of air Time Seen by Provider: 03/29/18 11:33 Mode of Arrival: EMS Limitations: No Limitations Description of Symptoms (Recalled from ER Triage Doc. by RN): Short of air - History of Present Illness HPI narrative: Brought in by ambulance with complaint of shortness of breath and swelling. Patient was admitted here for the same as well as generalized weakness 03/15 and then transferred to [facility] because of a renal mass seen on CT scan. She also had anemia and had transfusion here. She says that she had repeat scanning at [facility] and she does not have a renal mass, they said it was "just a shadow". She says that she was taken off of Eliquis because she was given the option to do so, with risks explained of possible bleeding if she remained on it and possible stroke if she stopped taking it. She says that she preferred a stroke to bleeding and therefore stopped taking it. She also says that she had the shakes while at [facility] and her albuterol treatments, which she also uses at home, and her gabapentin were both stopped. Her Lasix dose was increased from 80 mg a day to 120 mg a day. She says that despite the increased dose of Lasix, she has not had much urine output. She says that she was urinating very frequently all night long, but her output was much less than what it should have been. She complains of swelling of her feet and legs. She does not have very much visible swelling L, but says "I can feel it". She says that she wants a catheter and a shot of Lasix. She has an appointment to be followed up by her primary care provider tomorrow, but says that she did not feel like she could make it. Has chest pain, cough, fever. Daughter states "they should have never sent home from when they did". States that she has been up all night with the patient the past 2 nights because of trouble breathing. - Related Data Home Medications Medication Instructions Recorded Confirmed Apixaban [Eliquis] 5 mg PO BID 03/10/18 03/29/18 Furosemide [Furosemide 80mg Tab] 80 mg PO DAILY 03/10/18 03/29/18 Gabapentin [Gabapentin 400mg Cap] 400 mg PO TID 03/10/18 03/29/18 Metoprolol Succinate 12.5 mg PO BID 03/10/18 03/29/18 Simvastatin 20 mg PO QPM 03/10/18 03/29/18 cephALEXin [cephALEXin 500mg 500 mg PO Q6H 03/10/18 03/29/18 capsule] Clopidogrel Bisulfate [Plavix 75mg 75 mg PO DAILY 03/11/18 03/29/18 Tab] Ergocalciferol (Vitamin D2) 50,000 unit PO WEEKLY 03/11/18 03/29/18 [Vitamin D2] Previous Rx's Medication Instructions Recorded albuterol sulfate 2.5 mg/3 mL 2.5 mg INHALATION Q6HP PRN #3 ml 08/25/17 (0.083 %) solution for nebulization omeprazole 20 mg capsule,delayed 20 mg PO DAILY #90 cap 08/25/17 release fluoxetine 40 mg capsule 40 mg PO DAILY #30 cap 01/13/18 levothyroxine 25 mcg tablet 25 mcg PO DAILY #30 tab 01/13/18 ergocalciferol (vitamin D2) 50,000 50,000 unit PO QWEEK #7 cap 03/21/18 unit capsule Allergies Allergy/AdvReac Type Severity Reaction Status Date / Time morphine [MORPHINE] Allergy Unknown Verified 03/29/18 11:21 [facility] History I have reviewed the patient's past medical history: Yes Medical History: Reports:: Atrial Fibrillation, Cancer (Skin cancer), Congestive Heart Failure, Chronic Obstructive Pulmonary Disease (COPD), Deep Vein Thrombosis, Hyperlipidemia, Hypertension Denies:: Diabetes Mellitus Type 1, Diabetes Mellitus Type 2, Internal Pacemaker, MRSA Other Medical History: Reports: Cataracts, Glaucoma, Thyroid Disease Other Surgeries: Yes: Cholecystectomy, Skin Cancer Excision, Other (GALL BLADDER REMOVED). No: Pacemaker Amputation: No Fractures: Yes (right ankle) - Social History Educational Level: Completed High School Smoking Status: Never smoker Tobacco Type: cigarettes Alcohol Intake: never Alcohol Intake Frequency:: a few times a week Substance Use Type: denies use Occupational Status: retired Housing: house Household Members: family Comment: Ms. Ortiz has 1/8 grade education and can read and write well. She left school to help her mother with her grandmother. Her of many years a few years ago of a heart attack. She has been living with 1 of her daughters. Of her 5 children, a son of a disseminated cancer. She has 5 healthy grandchildren and 10 healthy great-grandchildren. She has no stairs to climb in her daughter's home. There are several dogs there. - Psychiatric History Expresses thoughts of harming self/others: None Suicide Plan Description: No Plan Family Hx:: Cancer, Hyperlipidemia, Hypertension Comment: Her father of lung cancer in his early 50s and her mother of "old age" and Alzheimer's disease. There is no family history of any chronic lung disease. ROS Obtained: Yes All systems reviewed & no additional complaints - Constitutional Constitutional: Denies fever(s) - Cardiovascular Cardiovascular: Denies chest pain, Reports leg edema, Reports pedal edema - Respiratory Respiratory: No cough, Yes dyspnea, No excessive phlegm production, No coughing up blood Physical Exam - General General appearance: alert, in no apparent distress - Head Head exam: atraumatic, normocephalic, normal inspection - Eye Eye exam: Present: normal appearance, PERRL, EOMI - ENT ENT exam: Present: mucous membranes moist - Neck Neck exam: Present: normal inspection, full ROM, trachea midline. Absent: meningismus, lymphadenopathy - Chest Chest inspection: Present: normal inspection, symmetric chest wall rise. Absent: tenderness - Respiratory Respiratory exam: Present: normal lung sounds bilaterally. Absent: respiratory distress - Cardiovascular Cardiovascular exam: Present: regular rate, irregular rhythm. Absent: JVD - Abdominal Exam Abdominal exam: Present: soft, normal bowel sounds. Absent: distention, tenderness, guarding - Extremities Exam Extremities exam: Present: normal inspection, full ROM, normal capillary refill, pedal edema (Trace pitting edema of feet and lower legs). Absent: calf tenderness - Back Exam Back exam: Present: normal inspection. Absent: tenderness - Neurological Exam Neurological exam: Present: alert, oriented X3 - Psychiatric Psychiatric exam: Present: normal affect, normal mood - Skin Skin exam: Present: warm, dry, intact, normal color
[2018-03-29 13:41] LABS: Basophils % 0.3 % (0.1-2.0); Eosinophils # 0.1 K/mm3 (0.0-0.4); Eosinophils % 2.7 % (0.1-12.0); Hematocrit 28.4 % (37.0-47.0); Hemoglobin 8.5 g/dL (12.2-16.2); Lymphocytes # 0.8 K/mm3 (0.7-4.5); Mean Corpuscular HGB Conc 29.9 g/dL (31.8-35.4); Mean Corpuscular Volume 93.6 fl (81-99); Mean Platelet Volume 8.3 fl (7.4-10.4); Monocytes # 0.2 K/mm3 (0.1-1.0); Neutrophils # 3.4 K/mm3 (1.8-7.8); Neutrophils % 74.9 % (37.0-80.0); Platelet Count 140 K/mm3 (142-424); Red Blood Count 3.04 M/mm3 (4.20-5.40); Red Cell Distribution Width 16.8 % (11.5-17.5); White Blood Count 4.6 K/mm3 (4.8-10.8)
[2018-03-29 13:54] LABS: Alanine Aminotransferase 16 U/L (12-78); Albumin Level 2.9 gm/dL (3.4-5.0); Albumin/Globulin Ratio 0.7 (1.1-1.8); Alkaline Phosphatase 95 U/L (46-116); Anion Gap 4.4 mEq/L (5-15); Aspartate Amino Transferase 13 U/L (15-37); Bilirubin,Total 0.7 mg/dL (0.2-1.0); Blood Urea Nitrogen 34 mg/dL (7-18); Chloride 101 mmol/L (98-107); Globulin 3.9 gm/dl (1.3-3.2); Glucose 100 mg/dL (74-106); Potassium 4.4 mmoL/L (3.5-5.1); Sodium 144 mmol/L (136-145); Total Protein,Serum 6.8 gm/dL (6.4-8.2)
[2018-03-29 13:55] LABS: Carbon Dioxide 43 mmol/L (21.0-32.0)
[2018-03-29 14:21] LABS: Microscopic, Urine URINE MICROSCOPIC (MICROSCOPIC)
[2018-03-29 14:27] LABS: Appearance,Urine CLEAR (Clear); Bilirubin,Urine Negative (Negative); Blood, Urine Negative (Negative); Color,Urine YELLOW (Yellow); Glucose,Urine (UA) Negative (Negative); Ketones,Urine Negative (Negative); Leukocyte Esterase,Urine Negative (Negative); Protein,Urine Negative (Negative)
[2018-03-29 14:35] LABS: WBC,Urine Occasional #/hpf (0-3)
--- NOTE | 2018-03-29 22:19 | History & Physical Report ---
*Admission Date: 03/29/18 *Chief complaint: sob *History of present illness: this wf presents to ed with sob -rought in by ambulance with complaint of shortness of breath and swelling. Patient was admitted here for the same as well as generalized weakness 03/15 and then transferred to [facility] because of a renal mass seen on CT scan. She also had anemia and had transfusion here. She says that she had repeat scanning at [facility] and she does not have a renal mass, they said it was "just a shadow". She says that she was taken off of Eliquis because she was given the option to do so, with risks explained of possible bleeding if she remained on it and possible stroke if she stopped taking it. She says that she preferred a stroke to bleeding and therefore stopped taking it. She also says that she had the shakes while at [facility] and her albuterol treatments, which she also uses at home, and her gabapentin were both stopped. Her Lasix dose was increased from 80 mg a day to 120 mg a day. She says that despite the increased dose of Lasix, she has not had much urine output. She says that she was urinating very frequently all night long, but her output was much less than what it should have been. She complains of swelling of her feet and legs. She does not have very much visible swelling L, but says "I can feel it". She says that she wants a catheter and a shot of Lasix. She has an appointment to be followed up by her primary care provider tomorrow, but says that she did not feel like she could make it. Has chest pain, cough, fever. Daughter states "they should have never sent home from when they did". States that she has been up all night with the patient the past 2 nights because of trouble breathing. [facility] History I have reviewed the patient's past medical history: Yes Medical History: Reports:: Atrial Fibrillation, Cancer (Skin cancer), Congestive Heart Failure, Chronic Obstructive Pulmonary Disease (COPD), Deep Vein Thrombosis, Hyperlipidemia, Hypertension Denies:: Diabetes Mellitus Type 1, Diabetes Mellitus Type 2, Internal Pacemaker, MRSA Other Medical History: Reports: Cataracts, Glaucoma, Thyroid Disease Other Surgeries: Yes: Cholecystectomy, Skin Cancer Excision, Other (GALL BLADDER REMOVED). No: Pacemaker Amputation: No Fractures: Yes (right ankle) - *Social History Educational Level: Completed High School Smoking Status: Never smoker Tobacco Type: cigarettes Alcohol Intake: never Alcohol Intake Frequency:: a few times a week Substance Use Type: denies use Occupational Status: retired Housing: house Household Members: family - Psychiatric History Expresses thoughts of harming self/others: None Suicide Plan Description: No Plan *Family Hx:: Cancer, Hyperlipidemia, Hypertension Review of Systems - Review of Systems Review of systems:: pertinent systems reviewed and negative unless documented below - Constitutional Denies fever(s) - Eyes Denies change in vision - ENT Denies sore throat - *Cardiovascular Reports chest pain, Reports shortness of breath with activity, Reports leg swelling - *Respiratory Reports shortness of breath - *Gastrointestinal Denies abdominal pain - *Musculoskeletal Denies joint pain - Integumentary/Breasts Denies rash - *Neurologic Denies seizure-like activity - Psychiatric Denies anxiety Meds Home Medications Medication Instructions Recorded Confirmed Type Apixaban [Eliquis] 5 mg PO BID 03/10/18 03/29/18 History Furosemide [Furosemide 80mg Tab] 80 mg PO DAILY 03/10/18 03/29/18 History Gabapentin [Gabapentin 400mg Cap] 400 mg PO TID 03/10/18 03/29/18 History Metoprolol Succinate 12.5 mg PO BID 03/10/18 03/29/18 History Simvastatin 20 mg PO HS 03/10/18 03/30/18 History Clopidogrel Bisulfate [Plavix 75mg 75 mg PO DAILY 03/11/18 03/29/18 History Tab] Ergocalciferol (Vitamin D2) 50,000 unit PO WEEKLY 03/11/18 03/29/18 History [Vitamin D2] Allergies Allergy/AdvReac Type Severity Reaction Status Date / Time morphine [MORPHINE] Allergy Unknown Verified 03/29/18 11:21 Exam Vital signs and Labs for Last 24 Hours: Temp Pulse Resp BP Pulse Ox 98.0 F 85 16 113/54 L 98 03/29/18 20:00 03/29/18 20:46 03/29/18 20:00 03/29/18 20:00 03/29/18 20:00 Laboratory Results - last 24 hr 03/29/18 13:15: WBC 4.6 L, RBC 3.04 L, Hgb 8.5 L, Hct 28.4 L, MCV 93.6, MCH 28.0, MCHC 29.9 L, RDW 16.8, Plt Count 140 L, MPV 8.3, Neut % (Auto) 74.9, Lymph % (Auto) 17.0, [place] % (Auto) 5.0, Eos % (Auto) 2.7, Baso % (Auto) 0.3, Neut # (Auto) 3.4, Lymph # (Auto) 0.8, [place] # (Auto) 0.2, Eos # (Auto) 0.1, Baso # (Auto) 0.0 03/29/18 13:15: Lactate 0.7 03/29/18 13:15: Sodium 144, Potassium 4.4, Chloride 101, Carbon Dioxide 43 H*, Anion Gap 4.4 L, BUN 34 H, Creatinine 0.93, Estimated Creat Clear 42, Estimated GFR 58 L, Est GFR ( Amer) 70, Glucose 100, Calcium 9.0, Total Bilirubin 0.7, AST 13 L, ALT 16, Alkaline Phosphatase 95, Troponin I < 0.02, Total Protein 6.8, Albumin 2.9 L, Globulin 3.9 H, Albumin/Globulin Ratio 0.7 L 03/29/18 13:15: B-Natriuretic Peptide 280 H 03/29/18 14:14: Urine Color Yellow, Urine Appearance Clear, Urine pH 8.0, Ur Specific [place] 1.010, Urine Protein Negative, Urine Glucose (UA) Negative, Urine Ketones Negative, Urine Blood Negative, Urine Nitrate Negative, Urine Bilirubin Negative, Urine Urobilinogen 4.0, Ur Leukocyte Esterase Negative, Urin e RBC None, Urine WBC Occasional, Ur Squamous Epith Cells None, Urine Bacteria None I & O for Last 24 hours: Intake & Output 03/27/18 03/28/18 03/29/18 03/30/18 11:59 11:59 11:59 11:59 Intake Total 480 / 480 Output Total 1800 / 1800 Balance -1320 / -1320 Weight 306 lb 303 lb 8 oz - Constitutional no acute distress, obese - *Routine HEENT Exam Head: Present: normocephalic Eye: Present: EOMI, PERRL ENT: Present: mucous membranes dry - *Routine Neck Exam Absent: JVD - *Routine Respiratory Exam Present: decreased breath sounds, rales - *Routine Cardiovascular Exam Present: RRR, murmur, S4 - *Routine Abdominal Exam Present: soft - *Routine Extremities Exam Present: edema. Absent: Emile's sign - *Routine Skin Exam Present: intact - *Routine Neurological Exam Present: alert, CN II-XII intact - Routine Psychiatric Exam Present: normal affect Assessment and Plan (1) Anemia Current visit: Yes Status: Acute Qualifiers: Anemia type: unspecified type Qualified Code(s): D64.9 - Anemia, unspecified Category: Medical Code(s): D64.9 - Anemia, unspecified (2) CHF (congestive heart failure) Current visit: Yes Status: Chronic Qualifiers: Heart failure type: unspecified Heart failure chronicity: acute on chronic Qualified Code(s): I50.9 - Heart failure, unspecified Category: Medical Code(s): I50.9 - Heart failure, unspecified (3) Overweight Current visit: Yes Status: Acute Category: Medical Code(s): E66.3 - Overweight (4) COPD (chronic obstructive pulmonary disease) Current visit: Yes Status: Acute Category: Medical Code(s): J44.9 - Chronic obstructive pulmonary disease, unspecified
[2018-03-30 05:46] LABS: Anion Gap 0.1 mEq/L (5-15); Calcium 8.8 mg/dL (8.5-10.1); Potassium 4.1 mmoL/L (3.5-5.1)
--- NOTE | 2018-03-30 07:48 | Pharmacy Consult Notes ---
[facility] Pharm[facility] VTE Monitoring - Patient Demographics Admission date: 03/29/18 Report Date: 03/30/18 Time: 07:48 Allergies/Adverse Reactions: Patient Allergies morphine [MORPHINE] Allergy (Unknown, Verified 03/29/18 11:21) Height: 1.68 m Weight: 139.763 kg Patient Problems: Current Active Problems CHF (congestive heart failure) (Chronic) - VTE Risk Labs: VTE Related Lab Results Hgb 8.5 g/dL (12.2-16.2) L 03/29/18 13:15 Hct 28.4 % (37.0-47.0) L 03/29/18 13:15 Plt Count 140 K/mm3 (142-424) L 03/29/18 13:15 BUN 34 mg/dL (7-18) H 03/30/18 05:28 Creatinine 0.99 mg/dL (0.55-1.02) 03/30/18 05:28 Estimated Creat Clear 42 mL/min (0-300) 03/30/18 05:28 Was VTE Risk Assessment Performed: Yes VTE Risk Level: Very Low Risk - Prophylaxis VTE Prophylaxis Ordered?: Yes Types of VTE Prophylaxis: TEDS Thigh High Location of Applied Device: Bilateral Lower Extremeties - VTE Diagnosis Confirmed Treatment or plan recommended: Continue Current Treatment
--- NOTE | 2018-03-30 08:35 | Consult Report ---
<Jacquelin,Mike Carnes - Last Filed: 03/30/18 08:49> Meds Home Medications Medication Instructions Recorded Confirmed Type Apixaban [Eliquis] 5 mg PO BID 03/10/18 03/29/18 History Furosemide [Furosemide 80mg Tab] 80 mg PO DAILY 03/10/18 03/29/18 History Gabapentin [Gabapentin 400mg Cap] 400 mg PO TID 03/10/18 03/29/18 History Metoprolol Succinate 12.5 mg PO BID 03/10/18 03/29/18 History Simvastatin 20 mg PO HS 03/10/18 03/30/18 History Clopidogrel Bisulfate [Plavix 75mg 75 mg PO DAILY 03/11/18 03/29/18 History Tab] Ergocalciferol (Vitamin D2) 50,000 unit PO WEEKLY 03/11/18 03/29/18 History [Vitamin D2] Allergies Allergy/AdvReac Type Severity Reaction Status Date / Time morphine [MORPHINE] Allergy Unknown Verified 03/29/18 11:21 Exam Vital signs and Labs for Last 24 Hours: Temp Pulse Resp BP Pulse Ox 98.0 F 66 22 126/52 L 95 03/30/18 07:47 03/30/18 07:47 03/30/18 07:47 03/30/18 07:47 03/30/18 07:47 Laboratory Results - last 24 hr 03/29/18 13:15: WBC 4.6 L, RBC 3.04 L, Hgb 8.5 L, Hct 28.4 L, MCV 93.6, MCH 28.0, MCHC 29.9 L, RDW 16.8, Plt Count 140 L, MPV 8.3, Neut % (Auto) 74.9, Lymph % (Auto) 17.0, [place] % (Auto) 5.0, Eos % (Auto) 2.7, Baso % (Auto) 0.3, Neut # (Auto) 3.4, Lymph # (Auto) 0.8, [place] # (Auto) 0.2, Eos # (Auto) 0.1, Baso # (Auto) 0.0 03/29/18 13:15: Lactate 0.7 03/29/18 13:15: Sodium 144, Potassium 4.4, Chloride 101, Carbon Dioxide 43 H*, Anion Gap 4.4 L, BUN 34 H, Creatinine 0.93, Estimated Creat Clear 42, Estimated GFR 58 L, Est GFR ( Amer) 70, Glucose 100, Calcium 9.0, Total Bilirubin 0.7, AST 13 L, ALT 16, Alkaline Phosphatase 95, Troponin I < 0.02, Total Protein 6.8, Albumin 2.9 L, Globulin 3.9 H, Albumin/Globulin Ratio 0.7 L 03/29/18 13:15: B-Natriuretic Peptide 280 H 03/29/18 14:14: Urine Color Yellow, Urine Appearance Clear, Urine pH 8.0, Ur Specific [place]agland 1.010, Urine Protein Negative, Urine Glucose (UA) Negative, Urine Ketones Negative, Urine Blood Negative, Urine Nitrate Negative, Urine Bilirubin Negative, Urine Urobilinogen 4.0, Ur Leukocyte Esterase Negative, Urine RBC None, Urine WBC Occasional, Ur Squamous Epith Cells None, Urine Bacteria None 03/30/18 05:28: Sodium 143, Potassium 4.1, Chloride 103, Carbon Dioxide 44 H*, Anion Gap 0.1 L, BUN 34 H, Creatinine 0.99, Estimated Creat Clear 42, Estimated GFR 54 L, Est GFR ( Amer) 65, Glucose 100, Calcium 8.8 I & O for Last 24 hours: Intake & Output 03/27/18 03/28/18 03/29/18 03/30/18 11:59 11:59 11:59 11:59 Intake Total 960 / 960 Output Total 1800 / 1800 Balance -840 / -840 Weight 306 lb 308 lb 2 oz Assessment and Plan (1) Anemia Current visit: Yes Status: Acute Qualifiers: Anemia type: unspecified type Qualified Code(s): D64.9 - Anemia, unspecified Category: Medical Code(s): D64.9 - Anemia, unspecified (2) CHF (congestive heart failure) Current visit: Yes Status: Chronic Qualifiers: Heart failure type: unspecified Heart failure chronicity: acute on chronic Qualified Code(s): I50.9 - Heart failure, unspecified Category: Medical Code(s): I50.9 - Heart failure, unspecified (3) Overweight Current visit: Yes Status: Acute Category: Medical Code(s): E66.3 - Overweight (4) COPD (chronic obstructive pulmonary disease) Current visit: Yes Status: Acute Category: Medical Code(s): J44.9 - Chronic obstructive pulmonary disease, unspecified <Bryant Cohen U - Last Filed: 03/30/18 10:02> History of Present Illness Consult date: 03/30/18 Requesting physician: Mike Roper Consult reason: shortness of breath Chief complaint: SOA, edema Additional Medical History:: 1. Hypertension A. Echo, 06/2017, Moderate biatrial enlargement, normal left ventricular size, mild concentric left ventricular hypertrophy, visually estimated ejection fraction 55% with no obvious regional wall motion abnormality. Moderately enlarged right ventricle w ith mild reduced contractility. Mild mitral and tricuspid regurgitation. No significant pericardial effusion noted 2. History of congestive heart failure, recurrent 3. Remote tobacco use discontinued about 6 years ago but previous history of at least 40 pack years. A. COPD, home oxygen therapy 4. 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 Obesity, morbid 6. History of A. fib, on anticoagulation A. CHADS-VASC score of at least 5 (age, female, HTN, CHF) 7. Hypothyroidism, on replacement 8. GERD and Hiatal Hernia History of present illness: this wf presents to ed with sob -rought in by ambulance with complaint of shortness of breath and swelling. Patient was admitted here for the same as well as generalized weakness 03/15 and then transferred to [facility] because of a renal mass seen on CT scan. She also had anemia and had transfusion here. She says that she had repeat scanning at [facility] and she does not have a renal mass, they said it was "just a shadow". She says that she was taken off of Eliquis because she was given the option to do so, with risks explained of possible bleeding if she remained on it and possible stroke if she stopped taking it. She says that she preferred a stroke to bleeding and therefore stopped taking it. She also says that she had the shakes while at [facility] and her albuterol treatments, which she also uses at home, and her gabapentin were both stopped. Her Lasix dose was increased from 80 mg a day to 120 mg a day. She says that despite the increased dose of Lasix, she has not had much urine output. She says that she was urinating very frequently all night long, but her output was much less than what it should have been. She complains of swelling of her feet and legs. She does not have very much visible swelling L, but says "I can feel it". She says that she wants a catheter and a shot of Lasix. She has an appointment to be followe d up by her primary care provider tomorrow, but says that she did not feel like she could make it. Has chest pain, cough, fever. Daughter states "they should have never sent home from when they did". States that she has been up all night with the patient the past 2 nights because of trouble breathing. The above per Dr. Roper and Dr. Awad Patient denies any chest pain but states she has been increasingly short of breath since discharge and [facility] last week along with lower extremity edema. She states "I just needed a catheter and some IV Lasix." Her shortness of breath and lower extremity edema is improving. Preliminary echocardiogram is similar to echo reading from earlier this year with preserved ejection fraction, right heart enlargement with elevated right ventricular systolic pressure in the moderate range. [facility] History Medical History: Reports:: Atrial Fibrillation, Cancer (Skin cancer), Congestive Heart Failure, Chronic Obstructive Pulmonary Disease (COPD), Deep Vein Thrombosis, Hyperlipidemia, Hypertension Denies:: Diabetes Mellitus Type 1, Diabetes Mellitus Type 2, Internal Pacemaker, MRSA Other Medical History: Reports: Cataracts, Glaucoma, Thyroid Disease Other Surgeries: Yes: Cholecystectomy, Skin Cancer Excision, Other (GALL BLADDER REMOVED). No: Pacemaker Amputation: No Fractures: Yes (right ankle) - *Social History Educational Level: Completed High School Smoking Status: Never smoker Tobacco Type: cigarettes Alcohol Intake: never Alcohol Intake Frequency:: a few times a week Substance Use Type: denies use Occupational Status: retired Housing: house Household Members: family - Psychiatric History Expresses thoughts of harming self/others: None Suicide Plan Description: No Plan *Family Hx:: Cancer, Hyperlipidemia, Hypertension Review of Systems - *Cardiovascular Reports shortness of breath, Reports shortness of breath with activity, Reports leg swelling - *Respiratory Reports shortness of breath, Reports shortness of breath with activity - *Gastrointestinal Denies abdominal pain - *Genitourinary Denies blood in urine - *Musculoskeletal Reports joint pain - *Neurologic Denies seizure-like activity Exam Vital signs and Labs for Last 24 Hours: Temp Pulse Resp BP Pulse Ox 98.0 F 66 22 126/52 L 95 03/30/18 07:47 03/30/18 07:47 03/30/18 07:47 03/30/18 07:47 03/30/18 07:47 Laboratory Results - last 24 hr 03/29/18 13:15: WBC 4.6 L, RBC 3.04 L, Hgb 8.5 L, Hct 28.4 L, MCV 93.6, MCH 28.0, MCHC 29.9 L, RDW 16.8, Plt Count 140 L, MPV 8.3, Neut % (Auto) 74.9, Lymph % (Auto) 17.0, [place] % (Auto) 5.0, Eos % (Auto) 2.7, Baso % (Auto) 0.3, Neut # (Auto) 3.4, Lymph # (Auto) 0.8, [place] # (Auto) 0.2, Eos # (Auto) 0.1, Baso # (Auto) 0.0 03/29/18 13:15: Lactate 0.7 03/29/18 13:15: Sodium 144, Potassium 4.4, Chloride 101, Carbon Dioxide 43 H*, Anion Gap 4.4 L, BUN 34 H, Creatinine 0.93, Estimated Creat Clear 42, Estimated GFR 58 L, Est GFR ( Amer) 70, Glucose 100, Calcium 9.0, Total Bilirubin 0.7, AST 13 L, ALT 16, Alkaline Phosphatase 95, Troponin I < 0.02, Total Protein 6.8, Albumin 2.9 L, Globulin 3.9 H, Albumin/Globulin Ratio 0.7 L 03/29/18 13:15: B-Natriuretic Peptide 280 H 03/29/18 14:14: Urine Color Yellow, Urine Appearance Clear, Urine pH 8.0, Ur Specific Ragland 1.010, Urine Protein Negative, Urine Glucose (UA) Negative, Urine Ketones Negative, Urine Blood Negative, Urine Nitrate Negative, Urine Bilirubin Negative, Urine Urobilinogen 4.0, Ur Leukocyte Esterase Negative, Urine RBC None, Urine WBC Occasional, Ur Squamous Epith Cells None, Urine Bacteria None 03/30/18 05:28: Sodium 143, Potassium 4.1, Chloride 103, Carbon Dioxide 44 H*, Anion Gap 0.1 L, BUN 34 H, Creatinine 0.99, Estimated Creat Clear 42, Estimated GFR 54 L, Est GFR ( Amer) 65, Glucose 100, Calcium 8.8 I & O for Last 24 hours: Intake & Output 03/27/18 03/28/18 03/29/18 03/30/18 11:59 11:59 11:59 11:59 Intake Total 960 / 960 Output Total 1800 / 1800 Balance -840 / -840 Weight 306 lb 308 lb 2 oz - *Routine Neck Exam Present: supple. Absent: JVD, carotid bruit - *Routine Respiratory Exam Present: CTA bilaterally. Absent: accessory muscle use, rales, rhonchi, wheezes - *Routine Cardiovascular Exam Present: RRR, irregularly irregular. Absent: murmur, gallop, rubs - *Routine Abdominal Exam Present: soft. Absent: tenderness, distended, guarding - *Routine Extremities Exam Present: edema. Absent: calf tenderness - *Routine Neurological Exam Present: alert, oriented X3, moving all extremities Assessment and Plan (1) Anemia Current visit: Yes Status: Acute Qualifiers: Anemia type: unspecified type Qualified Code(s): D64.9 - Anemia, unspecifie d Category: Medical Code(s): D64.9 - Anemia, unspecified (2) CHF (congestive heart failure) Current visit: Yes Status: Chronic Qualifiers: Heart failure type: unspecified Heart failure chronicity: acute on chronic Qualified Code(s): I50.9 - Heart failure, unspecified Category: Medical Code(s): I50.9 - Heart failure, unspecified (3) Overweight Current visit: Yes Status: Acute Category: Medical Code(s): E66.3 - Overweight (4) COPD (chronic obstructive pulmonary disease) Current visit: Yes Status: Acute Category: Medical Code(s): J44.9 - Chronic obstructive pulmonary disease, unspecified (5) COPD (chronic obstructive pulmonary disease) Current visit: No Status: Acute Category: Medical Code(s): J44.9 - Chronic obstructive pulmonary disease, unspecified (6) A-fib Current visit: No Status: Chronic Qualifiers: Category: Medical Code(s): I48.91 - Unspecified atrial fibrillation (7) Hypertension Current visit: No Status: Chronic Qualifiers: Hypertension type: essential hypertension Qualified Code(s): I10 - Essential (primary) hypertension Category: Medical Code(s): I10 - Essential (primary) hypertension (8) Morbid obesity with BMI of 50.0-59.9, adult Current visit: No Status: Chronic Category: Medical Code(s): E66.01 - Morbid (severe) obesity due to excess calories; Z68.43 - Body mass index (BMI) 50-59.9 , adult (9) Pancytopenia Current visit: No Status: Chronic Category: Medical Code(s): D61.818 - Other pancytopenia - Assessment and plan all Dx Assessment and Plan for all problems:: 1. Acute on chronic congestive heart failure, multifactorial including chronic atrial fibrillation, pancytopenia, morbid obesity and COPD, improving with IV Lasix. No evidence of acute coronary syndrome with normal troponins, EKG a. fib without acute changes and preliminary echocardiogram showing no wall motion abnormalities. However, this patient has had recurrent hospitalizations this year for CHF and each time we have recommended stress testing but due to SOA/CHF we have suggested outpatient testing after CHF has improved. She has not returned for outpatient testing due to transportation issues and recurrent hospitalizations. Would recommend additional IV lasix today and plan for C in AM to assess for CAD as cause for her recurrent SOA (possible angina equivalent in this morbidly obese, ex smoker with HTN, HLD and limited mobility). 2. Continue Plavix with plans for left heart catheterization tomorrow. 3. Hold Eliquis until after catheterization tomorrow. 4. Continue metoprolol. 5. Further recommendations to follow pending above results
--- NOTE | 2018-03-30 08:49 | Progress Note ---
Internal Medicine - PN: Subj *Date: 03/30/18 *Time: 08:00 Interval history: doing better but still sob Exam Vital signs and Labs for Last 24 Hours: Temp Pulse Resp BP Pulse Ox 98.0 F 66 22 126/52 L 95 03/30/18 07:47 03/30/18 07:47 03/30/18 07:47 03/30/18 07:47 03/30/18 07:47 Laboratory Results - last 24 hr 03/29/18 13:15: WBC 4.6 L, RBC 3.04 L, Hgb 8.5 L, Hct 28.4 L, MCV 93.6, MCH 28.0, MCHC 29.9 L, RDW 16.8, Plt Count 140 L, MPV 8.3, Neut % (Auto) 74.9, Lymph % (Auto) 17.0, [place] % (Auto) 5.0, Eos % (Auto) 2.7, Baso % (Auto) 0.3, Neut # (Auto) 3.4, Lymph # (Auto) 0.8, [place] # (Auto) 0.2, Eos # (Auto) 0.1, Baso # (Auto) 0.0 03/29/18 13:15: Lactate 0.7 03/29/18 13:15: Sodium 144, Potassium 4.4, Chloride 101, Carbon Dioxide 43 H*, Anion Gap 4.4 L, BUN 34 H, Creatinine 0.93, Estimated Creat Clear 42, Estimated GFR 58 L, Est GFR ( Amer) 70, Glucose 100, Calcium 9.0, Total Bilirubin 0.7, AST 13 L, ALT 16, Alkaline Phosphatase 95, Troponin I < 0.02, Total Protein 6.8, Albumin 2.9 L, Globulin 3.9 H, Albumin/Globulin Ratio 0.7 L 03/29/18 13:15: B-Natriuretic Peptide 280 H 03/29/18 14:14: Urine Color Yellow, Urine Appearance Clear, Urine pH 8.0, Ur Specific Lucas 1.010, Urine Protein Negative, Urine Glucose (UA) Negative, Urine Ketones Negative, Urine Blood Negative, Urine Nitrate Negative, Urine Bilirubin Negative, Urine Urobilinogen 4.0, Ur Leukocyte Esterase Negative, Urine RBC None, Urine WBC Occasional, Ur Squamous Epith Cells None, Urine Bacteria None 03/30/18 05:28: Sodium 143, Potassium 4.1, Chloride 103, Carbon Dioxide 44 H*, Anion Gap 0.1 L, BUN 34 H, Creatinine 0.99, Estimated Creat Clear 42, Estimated GFR 54 L, Est GFR ( Amer) 65, Glucose 100, Calcium 8.8 I & O for Last 24 hours: Intake & Output 03/27/18 03/28/18 03/29/18 03/30/18 11:59 11:59 11:59 11:59 Intake Total 960 / 960 Output Total 1800 / 1800 Balance -840 / -840 Weight 306 lb 308 lb 2 oz - Constitutional no acute distress, obese - *Routine HEENT Exam Head: Present: normocephalic Eye: Present: EOMI, PERRL ENT: Present: mucous membranes dry - *Routine Neck Exam Present: supple - *Routine Respiratory Exam Present: decreased breath sounds - *Routine Cardiovascular Exam Present: RRR, murmur, S4 - *Routine Abdominal Exam Present: soft - *Routine Extremities Exam Present: edema - *Routine Skin Exam Present: intact - *Routine Neurological Exam Present: alert, oriented X3, CN II-XII intact - Routine Psychiatric Exam Present: normal affect Assessment and Plan (1) Anemia Current visit: Yes Status: Acute Qualifiers: Anemia type: unspecified type Qualified Code(s): D64.9 - Anemia, unspecified Category: Medical Code(s): D64.9 - Anemia, unspecified (2) CHF (congestive heart failure) Current visit: Yes Status: Chronic Qualifiers: Heart failure type: unspecified Heart failure chronicity: acute on chronic Qualified Code(s): I50.9 - Heart failure, unspecified Category: Medical Code(s): I50.9 - Heart failure, unspecified (3) Overweight Current visit: Yes Status: Acute Category: Medical Code(s): E66.3 - Overweight (4) COPD (chronic obstructive pulmonary disease) Current visit: Yes Status: Acute Category: Medical Code(s): J44.9 - Chronic obstructive pulmonary disease, unspecified
[2018-03-31 06:04] LABS: Anion Gap 4.4 mEq/L (5-15); Calcium 8.7 mg/dL (8.5-10.1); Potassium 4.4 mmoL/L (3.5-5.1)
[2018-03-31 07:47] LABS: Basophils % 0.2 % (0.1-2.0); Eosinophils # 0.2 K/mm3 (0.0-0.4); Eosinophils % 4.7 % (0.1-12.0); Hematocrit 27.2 % (37.0-47.0); Hemoglobin 8.1 g/dL (12.2-16.2); Lymphocytes # 0.9 K/mm3 (0.7-4.5); Lymphocytes % 25.2 K/mm3 (10-50); Mean Corpuscular HGB Conc 29.7 g/dL (31.8-35.4); Mean Corpuscular Hemoglobin 27.4 pg (27.0-31.2); Mean Corpuscular Volume 92.3 fl (81-99); Mean Platelet Volume 8.3 fl (7.4-10.4); Monocytes # 0.2 K/mm3 (0.1-1.0); Monocytes % 5.5 % (1.7-9.3); Neutrophils # 2.2 K/mm3 (1.8-7.8); Neutrophils % 64.3 % (37.0-80.0); Platelet Count 132 K/mm3 (142-424); Red Blood Count 2.95 M/mm3 (4.20-5.40); Red Cell Distribution Width 16.7 % (11.5-17.5); White Blood Count 3.5 K/mm3 (4.8-10.8)
--- NOTE | 2018-03-31 10:11 | Cardiology Report ---
PROCEDURE: 2-D M-mode and color Doppler study INDICATIONS FOR THE TEST: Chest pain COPD+ Heart Murmur Tobacco SmokingEX Palpitations Fatigue Syncope Edema+ Hypertension+Diabetes Mellitus Rheumatic Fever SOB+BANERJEE+Obesity+Hyperlipidemia+ Family History HD Additional History Afib, GERD PATIENT INFORMATION HEIGHT: 66 WEIGHT: 306 GENDER: Female B/P: 111/77 2-D/M-MODE INTERPRETATION: 2-D MEASUREMENTS OBSERVED VALUES IN CMS Right Ventricular Dimension (RVDd) 3.2 Interventricular Septum (Thickness)(IVsd) 1.0 Left Ventricular Internal Dimensions(LVIDd) 5.2 Left Ventricular Posterior Wall (Thickness)(LVPWd) 1.1 Aortic Root 3.3 Aortic Cusp Separation 2.0 Left Atrial Dimensions (LAD) 4.4 2D 1. Left atrium is mildly enlarged, left ventricle is normal size, mild concentric left ventricular hypertrophy, visually estimated ejection fraction 55% with no obvious regional wall motion abnormality. Definity contrast was utilized to delineate endocardial surfaces. 2. The right atrium and right ventricle are moderately enlarged, contractility of the right ventricle is mildly reduced. 3. The aortic valve is minimally thickened and fibrosed, display mobility. 4. The mitral and tricuspid valve leaflets are minimally thickened and calcified. 5.The pulmonic valve is poorly visualized. 6. No significant pericardial effusion noted. DOPPLER INTERROGATION: Doppler interrogation of the aortic, mitral and tricuspid valvular presence of mild mitral and tricuspid regurgitation, calculated right ventricular systolic pressure 68 mmHg consistent with moderate pulmonary hypertension, diastolic parameters are inconclusive. CONCLUSION: 1. Biatrial enlargement, normal left ventricular size, mild concentric left ventricular hypertrophy, visually estimated ejection fraction 55% with no regional wall motion abnormality, Definity contrast was utilized to delineate endocardial surfaces. Diastolic Parameters are inconclusive, 2. moderately enlarged right ventricle are mildly reduced contractility. 3. Mild mitral and tricuspid regurgitation, calculated right ventricular systolic pressure is 68 mmHg consistent with moderate pulmonary hypertension. 4. No significant pericardial effusion noted.
--- NOTE | 2018-03-31 21:31 | Progress Note ---
Internal Medicine - PN: Subj *Date: 03/31/18 *Time: 08:00 Interval history: pt is doing better and having card cath today Exam Vital signs and Labs for Last 24 Hours: Temp Pulse Resp BP Pulse Ox 98 F 67 18 103/54 L 96 03/31/18 18:00 03/31/18 18:00 03/31/18 18:00 03/31/18 18:00 03/31/18 19:49 Laboratory Results - last 24 hr 03/31/18 05:30: WBC 3.5 L, RBC 2.95 L, Hgb 8.1 L, Hct 27.2 L, MCV 92.3, MCH 27.4, MCHC 29.7 L, RDW 16.7, Plt Count 132 L, MPV 8.3, Neut % (Auto) 64.3, Lymph % (Auto) 25.2, [place] % (Auto) 5.5, Eos % (Auto) 4.7, Baso % (Auto) 0.2, Neut # (Auto) 2.2, Lymph # (Auto) 0.9, [place] # (Auto) 0.2, Eos # (Auto) 0.2, Baso # (Auto) 0.0 03/31/18 05:35: Sodium 145, Potassium 4.4, Chloride 102, Carbon Dioxide 43 H*, Anion Gap 4.4 L, BUN 38 H, Creatinine 1.22 H D, Estimated Creat Clear 34, Estimated GFR 42 L, Est GFR ( Amer) 51 L D, Glucose 112 H, Calcium 8.7 I & O for Last 24 hours: Intake & Output 03/29/18 03/30/18 03/31/18 04/01/18 11:59 11:59 11:59 11:59 Intake Total 960 / 960 360 / 360 240 / 240 Output Total 1800 / 1800 2506 / 2506 Balance -840 / -840 -2146 / -2146 240 / 240 Weight 306 lb 308 lb 2 oz 306 lb 2 oz Microbiology Reports for the Last 24 Hours: Microbiology 03/29/18 11:34 Blood Blood Culture - Preliminary NO GROWTH AFTER 48 HOURS 03/29/18 11:34 Blood Blood Culture - Preliminary NO GROWTH AFTER 48 HOURS - Constitutional no acute distress - *Routine HEENT Exam Head: Present: normocephalic Eye: Present: EOMI, PERRL ENT: Present: mucous membranes dry - *Routine Neck Exam Absent: JVD - *Routine Respiratory Exam Present: decreased breath sounds - *Routine Cardiovascular Exam Present: RRR, murmur - *Routine Abdominal Exam Present: soft - *Routine Extremities Exam Present: edema - *Routine Skin Exam Present: intact - *Routine Neurological Exam Present: alert, CN II-XII intact - Routine Psychiatric Exam Present: normal affect Assessment and Plan (1) Anemia Current visit: Yes Status: Acute Qualifiers: Anemia type: unspecified type Qualified Code(s): D64.9 - Anemia, unspe cified Category: Medical Code(s): D64.9 - Anemia, unspecified (2) CHF (congestive heart failure) Current visit: Yes Status: Chronic Qualifiers: Heart failure type: unspecified Heart failure chronicity: acute on chronic Qualified Code(s): I50.9 - Heart failure, unspecified Category: Medical Code(s): I50.9 - Heart failure, unspecified (3) Overweight Current visit: Yes Status: Acute Category: Medical Code(s): E66.3 - Overweight (4) COPD (chronic obstructive pulmonary disease) Current visit: Yes Status: Acute Category: Medical Code(s): J44.9 - Chronic obstructive pulmonary disease, unspecified
[2018-04-01 07:01] LABS: Anion Gap 4.8 mEq/L (5-15); Calcium 8.9 mg/dL (8.5-10.1); Potassium 4.8 mmoL/L (3.5-5.1)
[2018-04-01 07:02] LABS: Basophils % 0.3 % (0.1-2.0); Eosinophils # 0.1 K/mm3 (0.0-0.4); Eosinophils % 4.3 % (0.1-12.0); Hematocrit 27.5 % (37.0-47.0); Hemoglobin 8.1 g/dL (12.2-16.2); Lymphocytes # 0.7 K/mm3 (0.7-4.5); Lymphocytes % 22.2 K/mm3 (10-50); Mean Corpuscular HGB Conc 29.3 g/dL (31.8-35.4); Mean Corpuscular Hemoglobin 27.9 pg (27.0-31.2); Mean Corpuscular Volume 95.2 fl (81-99); Mean Platelet Volume 8.1 fl (7.4-10.4); Monocytes # 0.2 K/mm3 (0.1-1.0); Monocytes % 5.5 % (1.7-9.3); Neutrophils # 2.1 K/mm3 (1.8-7.8); Neutrophils % 67.7 % (37.0-80.0); Platelet Count 121 K/mm3 (142-424); Red Blood Count 2.88 M/mm3 (4.20-5.40); Red Cell Distribution Width 16.4 % (11.5-17.5); White Blood Count 3.2 K/mm3 (4.8-10.8)
--- NOTE | 2018-04-01 08:03 | Progress Note ---
Subjective Date: 04/01/18 Time: 07:59 Principal diagnosis: SOA Interval history: 82 yo WF in bed in NAD. No chest pain. Breathing better. Edema improved. Exam Vital signs and Labs for Last 24 Hours: Temp Pulse Resp BP Pulse Ox 98.2 F 62 16 131/47 L 91 L 04/01/18 04:00 04/01/18 04:00 04/01/18 04:00 04/01/18 04:00 04/01/18 04:00 Laboratory Results - last 24 hr 03/31/18 05:30: WBC 3.5 L, RBC 2.95 L, Hgb 8.1 L, Hct 27.2 L, MCV 92.3, MCH 27.4, MCHC 29.7 L, RDW 16.7, Plt Count 132 L, MPV 8.3, Neut % (Auto) 64.3, Lymph % (Auto) 25.2, [place] % (Auto) 5.5, Eos % (Auto) 4.7, Baso % (Auto) 0.2, Neut # (Auto) 2.2, Lymph # (Auto) 0.9, [place] # (Auto) 0.2, Eos # (Auto) 0.2, Baso # (Auto) 0.0 04/01/18 05:34: WBC 3.2 L, RBC 2.88 L, Hgb 8.1 L, Hct 27.5 L, MCV 95.2, MCH 27.9, MCHC 29.3 L, RDW 16.4, Plt Count 121 L, MPV 8.1, Neut % (Auto) 67.7, Lymph % (Auto) 22.2, [place] % (Auto) 5.5, Eos % (Auto) 4.3, Baso % (Auto) 0.3, Neut # (Auto) 2.1, Lymph # (Auto) 0.7, [place] # (Auto) 0.2, Eos # (Auto) 0.1, Baso # (Auto) 0.0 04/01/18 05:34: Sodium 144, Potassium 4.8, Chloride 103, Carbon Dioxide 41 H*, Anion Gap 4.8 L, BUN 33 H, Creatinine 1.01, Estimated Creat Clear 42, Estimated GFR 53 L, Est GFR ( Amer) 64 D, Glucose 116 H, Calcium 8.9 I & O for Last 24 hours: Intake & Output 03/29/18 03/30/18 03/31/18 04/01/18 11:59 11:59 11:59 11:59 Intake Total 960 / 960 360 / 360 240 / 240 Output Total 1800 / 1800 2506 / 2506 575 / 575 Balance -840 / -840 -2146 / -2146 -335 / -335 Weight 306 lb 308 lb 2 oz 306 lb 2 oz 305 lb 7 oz Microbiology Reports for the Last 24 Hours: Microbiology 03/29/18 11:34 Blood Blood Culture - Preliminary NO GROWTH AFTER 48 HOURS 03/29/18 11:34 Blood Blood Culture - Preliminary NO GROWTH AFTER 48 HOURS - *Routine Respiratory Exam Present: decreased breath sounds, CTA bilaterally. Absent: accessory muscle use, rales, rhonchi, wheezes - *Routine Cardiovascular Exam Present: irregularly irregular. Absent: murmur, gallop, rubs - *Routine Extremities Exam Present: edema. Absent: calf tenderness - *Routine Neurological Exam Present: alert, oriented X3, moving all extremities Progress Note: A&P (1) Anemia Status: Acute Current Visit: Yes (2) Overweight Status: Acute Current Visit: Yes (3) COPD (chronic obstructive pulmonary disease) Status: Acute Current Visit: Yes (4) Diastolic CHF, acute on chronic Status: Acute Current Visit: Yes Assessment and Plan for All Diagnoses:: Discussed with Dr. Roper, she will be transfused one unit of PRBC's today due to continued Hgb of 8.1. OK for discharge home from cardiology standpoint when Dr. Roper is ready. Follow up in 1-2 wks Discussed implantation of CardioMems device for monitoring/management of CHF. Home meds: Eliquis 5 mg twice daily Lasix 120 mg daily Metoprolol 12.5 mg twice daily Pravastatin 40 mg daily Potassium 20 mEq daily Plavix 75 mg daily
--- NOTE | 2018-04-01 08:22 | Progress Note ---
Internal Medicine - PN: Subj *Date: 04/01/18 *Time: 08:30 Interval history: doing better and no chest pain - will transfuse 1 unit Exam Vital signs and Labs for Last 24 Hours: Temp Pulse Resp BP Pulse Ox 98.2 F 62 16 131/47 L 91 L 04/01/18 04:00 04/01/18 04:00 04/01/18 04:00 04/01/18 04:00 04/01/18 04:00 Laboratory Results - last 24 hr 04/01/18 05:34: WBC 3.2 L, RBC 2.88 L, Hgb 8.1 L, Hct 27.5 L, MCV 95.2, MCH 27.9, MCHC 29.3 L, RDW 16.4, Plt Count 121 L, MPV 8.1, Neut % (Auto) 67.7, Lymph % (Auto) 22.2, [place] % (Auto) 5.5, Eos % (Auto) 4.3, Baso % (Auto) 0.3, Neut # (Auto) 2.1, Lymph # (Auto) 0.7, [place] # (Auto) 0.2, Eos # (Auto) 0.1, Baso # (Auto) 0.0 04/01/18 05:34: Sodium 144, Potassium 4.8, Chloride 103, Carbon Dioxide 41 H*, Anion Gap 4.8 L, BUN 33 H, Creatinine 1.01, Estimated Creat Clear 42, Estimated GFR 53 L, Est GFR ( Amer) 64 D, Glucose 116 H, Calcium 8.9 I & O for Last 24 hours: Intake & Output 03/29/18 03/30/18 03/31/18 04/01/18 11:59 11:59 11:59 11:59 Intake Total 960 / 960 360 / 360 240 / 240 Output Total 1800 / 1800 2506 / 2506 575 / 575 Balance -840 / -840 -2146 / -2146 -335 / -335 Weight 306 lb 308 lb 2 oz 306 lb 2 oz 305 lb 7 oz Microbiology Reports for the Last 24 Hours: Microbiology 03/29/18 11:34 Blood Blood Culture - Preliminary NO GROWTH AFTER 48 HOURS 03/29/18 11:34 Blood Blood Culture - Preliminary NO GROWTH AFTER 48 HOURS - Constitutional no acute distress, obese - *Routine HEENT Exam Head: Present: normocephalic Eye: Present: EOMI, PERRL ENT: Present: mucous membranes dry - *Routine Neck Exam Absent: JVD - *Routine Respiratory Exam Present: decreased breath sounds - *Routine Cardiovascular Exam Present: RRR, murmur - *Routine Abdominal Exam Present: soft - *Routine Extremities Exam Absent: calf tenderness - *Routine Skin Exam Present: intact - *Routine Neurological Exam Present: alert, oriented X3, CN II-XII intact - Routine Psychiatric Exam Present: normal affect Assessment and Plan (1) Anemia Current visit: Yes Status: Acute Qualifiers: Anemia type: unspecified type Qualified Code(s): D64.9 - Anemia, unspecified Category: Medical Code(s): D64.9 - Anemia, unspecified (2) Overweight Current visit: Yes Status: Acute Category: Medical Code(s): E66.3 - Overweight (3) COPD (chronic obstructive pulmonary disease) Current visit: Yes Status: Acute Category: Medical Code(s): J44.9 - Chronic obstructive pulmonary disease, unspecified (4) Diastolic CHF, acute on chronic Current visit: Yes Status: Acute Category: Medical Code(s): I50.33 - Acute on chronic diastolic (congestive) heart failure
[2018-04-01 14:49] LABS: Hemoglobin 8.9 g/dL (12.2-16.2)
--- NOTE | 2018-04-02 08:45 | Discharge Summary ---
General - General Admission date:: 03/29/18 Discharge date: 04/02/18 HPI HPI: this wf presents to ed with sob -rought in by ambulance with complaint of shortness of breath and swelling. Patient was admitted here for the same as well as generalized weakness 03/15 and then transferred to [facility] because of a renal mass seen on CT scan. She also had anemia and had transfusion here. She says that she had repeat scanning at [facility] and she does not have a renal mass, they said it was "just a shadow". She says that she was taken off of Eliquis because she was given the option to do so, with risks explained of possible bleeding if she remained on it and possible stroke if she stopped taking it. She says that she preferred a stroke to bleeding and therefore stopped taking it. She also says that she had the shakes while at [facility] and her albuterol treatments, which she also uses at home, and her gabapentin were both stopped. Her Lasix dose was increased from 80 mg a day to 120 mg a day. She says that despite the increased dose of Lasix, she has not had much urine output. She says that she was urinating very frequently all night long, but her output was much less than what it should have been. She complains of swelling of her feet and legs. She does not have very much visible swelling L, but says "I can feel it". She says that she wants a catheter and a shot of Lasix. She has an appointment to be followed up by her primary care provider tomorrow, but says that she did not feel like she could make it. Has chest pain, cough, fever. Daughter states "they should have never sent home from when they did". States that she has been up all night with the patient the past 2 nights because of trouble breathing. Hospital Course Hospital Course: pt with sig congestion and had iv lasax and was seen by heather Osborn. Echo, 06/2017, Moderate biatrial enlargement, normal left ventricular size, mild concentric left ventricular hypertrophy, visually estimated ejection fraction 55% with no obvious regional wall motion abnormality. Moderately enlarged right ventricle with mild reduced contractility. Mild mitral and tricuspid regurgitation. No significant pericardial effusion noted 2. History of congestive heart failure, recurrent 3. Remote tobacco use discontinued about 6 years ago but previous history of at least 40 pack years. A. COPD, home oxygen therapy 4. 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 Obesity, morbid 6. History of A. fib, on anticoagulation A. CHADS-VASC score of at least 5 (age, female, HTN, CHF) 7. Hypothyroidism, on replacement 8. GERD and Hiatal Hernia atient denies any chest pain but states she has been increasingly short of breath since discharge and [facility] last week along with lower extremity edema. She states "I just needed a catheter and some IV Lasix." Her shortness of breath and lower extremity edema is improving. Preliminary echocardiogram is similar to echo reading from earlier this year with preserved ejection fraction, right heart enlargement with elevated right ventricular systolic pressure in the moderate range. pt with anemia but no acute blood loss and had card cath -e left main artery normal 2. The left anterior descending artery proximally normal with mid vessel smooth 20% stenosis 3. The circumflex artery nondominant normal 4. The right coronary artery large dominant and normal 5. The MEDEIROS ventriculogram reveals normal 65% 6. The left ventricular end-diastolic pressure severely elevated at 30 mmHg IMPRESSION: 1. Mild nonocclusive coronary artery disease 2. Normal ejection fraction 3. Severely elevated LVEDP consistent with diastolic dysfunction PLAN: 1. Aggressive treatment of diastolic dysfunction with high dose diuretics weight-loss and salt and fluid restriction 2. Control of hypertension 3. Consider Cardiomem for this patient given her repeat hospitalizations for decompensated congestive heart failure pt has improved and will be d/c to see card and pcp in follow up Objective Vital signs: Temp Pulse Resp BP Pulse Ox 98.5 F 69 22 98/69 L 94 L 04/02/18 07:39 04/02/18 07:39 04/02/18 07:39 04/02/18 07:39 04/02/18 07:39 no acute distress, obese - *Routine HEENT Exam Head: Present: normocephalic Eye: Present: EOMI, PERRL ENT: Present: mucous membranes dry - *Routine Neck Exam Absent: JVD - *Routine Respiratory Exam Present: decreased breath sounds - *Routine Cardiovascular Exam Present: RRR, murmur, S4 - *Routine Abdominal Exam Present: soft - *Routine Extremities Exam Present: edema. Absent: calf tenderness - *Routine Skin Exam Present: intact - *Routine Neurological Exam Present: alert, oriented X3, CN II-XII intact - Routine Psychiatric Exam Present: normal affect Results Labs on day of discharge: Labs from last 24 hours 04/01/18 04/01/18 14:35 09:00 Hgb 8.9 L Hct 30.0 L Blood Type O Negative Antibody Screen Negative Crossmatch (AHG) See Detail Preliminary micro results at discharge 03/29/18 11:34 Blood Culture - Preliminary Blood NO GROWTH AFTER 48 HOURS 03/29/18 11:34 Blood Culture - Preliminary Blood NO GROWTH AFTER 48 HOURS DS: Diagnosis - Discharge Diagnosis (1) Anemia Status: Acute (2) Overweight Status: Acute (3) COPD (chronic obstructive pulmonary disease) Status: Acute (4) Diastolic CHF, acute on chronic Status: Acute (5) Renal insufficiency Status: Acute Discharge Plan - Patient Discharge Instructions ACTIVITY: Continue current activity DIET: continue same diet Patient Instructions: Congestive Heart Failure (Alternative Therapy), Overweight in Adults, Chronic Obstructive Pulmonary Disease, Cardiac Catheterization, Anemia, Surgical Site Infection - Follow up Plan Disposition: Home, Self-[facility] Medications: Home Medications Medication Instructions Recorded Confirmed Type Apixaban [Eliquis] 5 mg PO BID 03/10/18 03/29/18 History Furosemide [Furosemide 80mg Tab] 80 mg PO DAILY 03/10/18 03/29/18 History Gabapentin [Gabapentin 400mg Cap] 400 mg PO TID 03/10/18 03/29/18 History Metoprolol Succinate 12.5 mg PO BID 03/10/18 03/29/18 History Simvastatin 20 mg PO HS 03/10/18 03/30/18 History Clopidogrel Bisulfate [Plavix 75mg 75 mg PO DAILY 03/11/18 03/29/18 History Tab] Ergocalciferol (Vitamin D2) 50,000 unit PO WEEKLY 03/11/18 03/29/18 History [Vitamin D2] Prescriptions/Medication Reconciliation: New Potassium Chloride [Klor-con 20 mEq tablet] 20 meq PO DAILY tablet Furosemide [Lasix 40mg tab] 120 mg PO DAILY 30 Days tab Continue albuterol sulfate 2.5 mg/3 mL (0.083 %) solution for nebulization 2.5 mg INHALATION Q6HP PRN #3 ml PRN Reason: Shortness Of Breath omeprazole 20 mg capsule,delayed release 20 mg PO DAILY #90 cap fluoxetine 40 mg capsule 40 mg PO DAILY #30 cap levothyroxine 25 mcg tablet 25 mcg PO DAILY #30 tab Apixaban [Eliquis] 5 mg PO BID Metoprolol Succinate 12.5 mg PO BID Gabapentin [Gabapentin 400mg Cap] 400 mg PO TID Ergocalciferol (Vitamin D2) [Vitamin D2] 50,000 unit PO WEEKLY Clopidogrel Bisulfate [Plavix 75mg Tab] 75 mg PO DAILY Simvastatin 20 mg PO HS Discontinued Furosemide [Furosemide 80mg Tab] 80 mg PO DAILY
== END 2018-04-02 10:53 | disposition home or self-care (01) ==
LOC: ER 11:15 → 2ND 15:29
PROVIDERS: ADMIT Emergency Medicine; ATTEND Emergency Medicine

== ENCOUNTER 2018-08-14 12:26 | Observation (INO) ==
[2018-08-14 13:21] LABS: Basophils % 0.3 % (0.1-2.0); Eosinophils # 0.1 K/mm3 (0.0-0.4); Eosinophils % 1.7 % (0.1-12.0); Hematocrit 31.7 % (37.0-47.0); Hemoglobin 9.5 g/dL (12.2-16.2); Lymphocytes # 1.1 K/mm3 (0.7-4.5); Lymphocytes % 18.3 % (10-50); Mean Corpuscular HGB Conc 30.1 g/dL (31.8-35.4); Mean Corpuscular Hemoglobin 29.6 pg (27.0-31.2); Mean Corpuscular Volume 98.3 fl (81-99); Mean Platelet Volume 8.3 fl (7.4-10.4); Monocytes # 0.3 K/mm3 (0.1-1.0); Monocytes % 5.7 % (1.7-9.3); Neutrophils # 4.4 K/mm3 (1.8-7.8); Neutrophils % 74.1 % (37.0-80.0); Platelet Count 139 K/mm3 (142-424); Red Blood Count 3.22 M/mm3 (4.20-5.40); Red Cell Distribution Width 16.5 % (11.5-17.5); White Blood Count 5.9 K/mm3 (4.8-10.8)
[2018-08-14 13:35] LABS: Anion Gap 6.6 mEq/L (5-15); Blood Urea Nitrogen 53 mg/dL (7-18); Calcium 8.8 mg/dL (8.5-10.1); Carbon Dioxide 36 mmol/L (21.0-32.0); Chloride 105 mmol/L (98-107); Glucose 107 mg/dL (74-106); Potassium 4.6 mmoL/L (3.5-5.1); Sodium 143 mmol/L (136-145)
--- NOTE | 2018-08-14 13:41 | Emergency Department Note ---
ED Disposition Clinical Impression: Anasarca, Hypoxia Disposition: Admitted As Inpatient Condition on Discharge: Fair - Critical Care Critical Care Time: No Attestation: On 08/14/18, the high probability of a clinically significant, sudden or life threatening deterioration of the following system(s) required my full and direct attention, intervention and personal management. The time I documented below is in addition to time spent performing reported procedures but includes the following listed in this critical care notation. Medical Decision Making - Blu Inquiry Pt receiving controlled substance: No Vital Signs: 08/14/18 12:42 08/14/18 13:13 08/14/18 13:57 Temperature 97.9 F Temperature Source Oral Pulse Rate [Left Radial] 68 67 71 Respiratory Rate 28 H Blood Pressure [Right Arm] 105/54 L 105/54 L 108/80 L Blood Pressure Mean [Right Arm] 71 71 89 Blood Pressure Source [Right Arm] Manual Cuff/ Doppler Automatic Cuff Automatic Cuff Blood Pressure Position [Right Arm] Sitting Sitting Sitting 02 Sat by Pulse Oximetry 89 L 99 94 L Oxygen Delivery Method Nasal Cannula Nasal Cannula Nasal Cannula Oxygen Flow Rate (LPM) 6 6 6 08/14/18 14:13 08/14/18 14:34 08/14/18 15:29 Temperature Temperature Source Pulse Rate [Left Radial] 68 65 60 Respiratory Rate Blood Pressure [Right Arm] 112/53 L 101/52 L 143/72 H Blood Pressure Mean [Right Arm] 72 68 95 Blood Pressure Source [Right Arm] Automatic Cuff Automatic Cuff Automatic Cuff Blood Pressure Position [Right Arm] Sitting Sitting Supine 02 Sat by Pulse Oximetry 99 94 L 96 Oxygen Delivery Method Nasal Cannula Nasal Cannula Nasal Cannula Oxygen Flow Rate (LPM) 6 6 6 08/14/18 15:56 Temperature Temperature Source Pulse Rate [Left Radial] 65 Respiratory Rate 22 Blood Pressure [Right Arm] 135/53 L Blood Pressure Mean [Right Arm] 80 Blood Pressure Source [Right Arm] Automatic Cuff Blood Pressure Position [Right Arm] Sitting 02 Sat by Pulse Oximetry 89 L Oxygen Delivery Method Nasal Cannula Oxygen Flow Rate (LPM) 6 - Lab Data Lab Results 08/14/18 13:05: WBC 5.9, RBC 3.22 L, Hgb 9.5 L, Hct 31.7 L, MCV 98.3, MCH 29.6, MCHC 30.1 L, RDW 16.5, Plt Count 139 L, MPV 8.3, Neut % (Auto) 74.1, Lymph % (Auto) 18.3, [place] % (Auto) 5.7, Eos % (Auto) 1.7, Baso % (Auto) 0.3, Neut # (Auto) 4.4, Lymph # (Auto) 1.1, [place] # (Auto) 0.3, Eos # (Auto) 0.1, Baso # (Auto) 0.0 08/14/18 13:05: Sodium 143, Potassium 4.6, Chloride 105, Carbon Dioxide 36 H, Anion Gap 6.6, BUN 53 H, Creatinine 2.03 H, Estimated Creat Clear 20, Estimated GFR 24 L, Est GFR ( Amer) 28 L, Glucose 107 H, Calcium 8.8, Troponin I < 0.02 08/14/18 13:05: B-Natriuretic Peptide 913 H 08/14/18 13:05: Lactate 0.7 Result diagrams: 08/14/18 13:05 08/14/18 13:05 Orders (Tests/Meds): ED MEDICATIONS Generic Name Dose Route Start Last Admin Trade Name Freq PRN Reason Stop Dose Admin Levofloxacin/Dextrose 750 mg in 150 mls @ 100 mls/hr 08/14/18 16:30 Levofloxacin 750mg/150ml Premix IV 08/28/18 16:29 Q24H [facility] Protocol Cefepime HCl 2 gm/ Sodium 100 mls @ 200 mls/hr 08/14/18 16:30 Chloride IV 08/28/18 16:29 Q12H [facility] Protocol Miscellaneous 1 each 08/14/18 16:30 Vancomycin Consult Request NOTAPPLIC 08/15/18 04:19 CONSULT PHARMACY [facility] Sodium Chloride 10 ml 08/14/18 12:49 Saline Flush 10ml Syringe IV 09/13/18 12:48 NEEDED PRN Maintain IV Site Discontinued Medications Generic Name Dose Route Start Last Admin Trade Name Freq PRN Reason Stop Dose Admin Acetaminophen 650 mg 08/14/18 15:51 08/14/18 15:55 Acetaminophen 325mg Tab PO 08/14/18 15:52 650 mg ONCE ONE Administration ORDERS Category Date Time Status Chest XR -- portable [XR chest portable] Stat Exams 08/14/18 12:48 Taken Blood Culture Stat Micro 08/14/18 12:49 Ordered ECG Request by /Nse Stat Y 08/14/18 12:48 Ordered - Radiology Data #1 Image(s): Chest Image Reviewed: Yes I reviewed the patient's radiology image Infiltrate right mid lung - CT Data CT Scan: Chest Time Received: 16:[address] Reviewed: Yes: I have viewed the radiologist's interpretation Findings Narrative: CT scan interpreted by ad radiologist. Faxed report received and reviewed: Areas of infiltrate left upper lobe, left lower lobe, right lower lobe. Bilateral pleural effusions. 7 mm pleural-based density right upper lobe. - ECG Data Tracing #1 EKG interpreted by Vargas Awad MD: Rhythm: Atrial fibrillation with controlled ventricular response Rate: 67 [place]: normal Ectopy: none Conduction: normal ST Segment Changes: none T Wave Changes: Nonspecific Q Waves: none No evidence of acute ischemia or injury Low voltage QRS Prior electrocardiagrams reviewed. No change from prior tracings. - Physician Consults Physician Consulted: Jacquelin Time: 14:25 Reason -: Admission Comment/Response: Agrees to admit the patient to the hospital. We discussed the patient's clinical information, including history, exam, laboratory and radiology results and ED course. Per hospital procedure, I will write temporary bridge inpatient orders on the patient. Specific orders requested by the admitting physician: Unclear what her fluid status is. She has anasarca, but also has doubled her creatinine since March. He recommends holding off on additional fluids or additional diuretics at this time until she gets an echocardiogram and is evaluated by Dr. Hester tomorrow. CT scan of the chest to clarify whether she has an acute pneumonia. If so, treat for healthcare associated pneumonia. Medical Decision Narrative: 4:20 PM: I will treat with 1 dose of intravenous Lasix pending evaluation by Dr. Hester tomorrow. General Adult HPI - General Chief complaint: Shortness of Breath/Dyspnea Stated complaint: SOB, Edema Time Seen by Provider: 08/14/18 13:40 Mode of Arrival: EMS Limitations: Physical Limitations Description of Symptoms (Recalled from ER Triage Doc. by RN): to ed per squad reports pt c/o sob starting this am states had an episode of sharp lt rib pain lasting approx 3mins, swelling feet ankles lower leg. pt wears O2 4L 24/. squad reports pt's o2 sats were 82%. pt also c/o redness swelling lt breast x 1 week. denies any chest pain at present. denies any fever, chills, nausea, vomiting cough - History of Present Illness HPI narrative: Ar[facility] ambulance from [facility]. States that when she awakened this morning she had a pain in her left arm and her left inframammary chest that lasted about 5 minutes. She has been having some intermittent shaking spells, but does not think they are rigors or shivering. She also has increased swelling for the past week. Today has swelling of her left face, left arm, and left breast. Her left breast is erythematous and her abdomen are erythematous but neither is painful. She has had no fever. She says she always lays on her left side, spends most of her day laying on her left side and always lays on her left side at night. She says she is laid this way for decades. She says that her water intake has been decreased over the past week or so because of her swelling. She says her urinary output has decreased. However, swelling has not improved. She denies shortness of breath, cough. The patient had hypoxia at the senior care today and oxygen was increased from her normal 4.5 L to 6 L. She says her breathing feels fine at present. - Related Data Home Medications Medication Instructions Recorded Confirmed pantoprazole 40 mg tablet,delayed 40 mg PO DAILY 07/19/18 08/14/18 release Furosemide [Lasix 40mg tab] 40 mg PO DAILY 08/14/18 08/14/18 Gabapentin [Gabapentin 300mg Cap] 300 mg PO TID 08/14/18 08/14/18 Metoprolol Succinate 12.5 mg PO BID 08/14/18 08/14/18 cephALEXin [Keflex 500mg Cap] 500 mg PO TID 08/14/18 08/14/18 Previous Rx's Medication Instructions Recorded albuterol sulfate 2.5 mg/3 mL 2.5 mg INHALATION Q6HP PRN #3 ml 08/25/17 (0.083 %) solution for nebulization levothyroxine 25 mcg tablet 25 mcg PO DAILY #30 tab 05/09/18 fluoxetine 40 mg capsule 40 mg PO DAILY #30 cap 05/27/18 simvastatin 20 mg tablet 20 mg PO HS #90 tab 05/27/18 Allergies Allergy/AdvReac Type Severity Reaction Status Date / Time morphine [MORPHINE] Allergy Unknown Verified 07/19/18 09:40 [facility] History - Hepatitis A Screen Drug use history?: No High risk sexual behaviors?: No History of sexually transmitted infection?: No Currently employed?: No Childcare worker?: No Do you have indoor plumbing?: Yes Do you have electricity?: Yes Attestation statement:: This patient has been screened for Hepatitis A risk factors. I have reviewed the patient's past medical history: Yes Medical History: Reports:: Atrial Fibrillation, Cancer (Skin cancer), Congestive Heart Failure, Chronic Obstructive Pulmonary Disease (COPD), Deep Vein Thrombosis, Hyperlipidemia, Hypertension Denies:: Diabetes Mellitus Type 1, Diabetes Mellitus Type 2, Internal Pacemaker, MRSA Other Medical History: Reports: Cataracts, Glaucoma, Thyroid Disease Other Surgeries: Yes: Cholecystectomy, Skin Cancer Excision, Other (GALL BLADDER REMOVED). No: Pacemaker Amputation: No Fractures: Yes (right ankle) - Social History Smoking Status: Never smoker Tobacco Type: cigarettes Alcohol Intake: never Alcohol Intake Frequency:: a few times a week Substance Use Type: denies use Occupational Status: retired Housing: house Household Members: family Comment: Ms. Ortiz has 1/8 grade education and can read and write well. She left school to help her mother with her grandmother. Her of many years a few years ago of a heart attack. She has been living with 1 of her daughters. Of her 5 children, a son of a disseminated cancer. She has 5 healthy grandchildren and 10 healthy great-grandchildren. She has no stairs to climb in her daughter's home. There are several dogs there. - Psychiatric History Expresses thoughts of harming self/others: None Suicide Plan Description: No Plan Family Hx:: Cancer, Hyperlipidemia, Hypertension Comment: Her father of lung cancer in his early 50s and her mother of "old age" and Alzheimer's disease. There is no family history of any chronic lung disease. ROS Obtained: Yes All systems reviewed & no additional complaints - Constitutional Constitutional: Denies fever(s) - Cardiovascular Cardiovascular: Reports chest pain - Respiratory Respiratory: No cough, Yes dyspnea (Chronic shortness of breath, unchanged.) - Gastrointestinal Gastrointestingal: Denies: abdominal pain, diarrhea, vomiting - Genitourinary Female Genitourinary: Reports as per HPI Physical Exam - General General appearance: alert, in no apparent distress Comment: Appears to have anasarca. Edema of left face, left arm, left breast. Edema of abdominal wall. Edema of both legs and feet, pretty symmetric. Erythema of left breast and abdominal wall without tenderness. - Head Head exam: atraumatic, normocephalic - Eye Eye exam: Present: PERRL, EOMI - ENT ENT exam: Present: normal oropharynx - Neck Neck exam: Present: normal inspection - Chest Chest inspection: Present: normal inspection, symmetric chest wall rise - Respiratory Respiratory exam: Present: normal lung sounds bilaterally. Absent: respiratory distress - Cardiovascular Cardiovascular exam: Present: regular rate, irregular rhythm, normal heart sounds - Abdominal Exam Abdominal exam: Present: soft. Absent: tenderness - Neurological Exam Neurological exam: Present: alert, oriented X3 - Psychiatric Psychiatric exam: Present: normal affect, normal mood
[2018-08-14 17:20] LABS: Free Thyroxine Index 2.1 ug/dL (5.93-13.13); Thyroid Stimulating Hormone 4.44 uIU/ml (0.358-3.740)
[2018-08-15 06:49] LABS: Anion Gap 10.2 mEq/L (5-15); Calcium 9.1 mg/dL (8.5-10.1); Potassium 5.2 mmoL/L (3.5-5.1)
--- NOTE | 2018-08-15 07:24 | Pharmacy Consult Notes ---
[facility] Pharmacy VTE Monitoring - Patient Demographics Admission date: 08/14/18 Report Date: 08/15/18 Time: 07:24 Allergies/Adverse Reactions: Patient Allergies morphine [MORPHINE] Allergy (Unknown, Verified 07/19/18 09:40) Height: 1.68 m Weight: 170.607 kg Patient Problems: Current Active Problems Anasarca (Acute) Hypoxia (Acute) - VTE Risk Labs: VTE Related Lab Results Hgb 9.5 g/dL (12.2-16.2) L 08/14/18 13:05 Hct 31.7 % (37.0-47.0) L 08/14/18 13:05 Plt Count 139 K/mm3 (142-424) L 08/14/18 13:05 BUN 53 mg/dL (7-18) H 08/15/18 05:44 Creatinine 1.87 mg/dL (0.55-1.02) H 08/15/18 05:44 Estimated Creat Clear 22 mL/min (50-200) 08/15/18 05:44 VTE Score: 9 VTE Risk Level: Moderate Risk - Prophylaxis VTE Prophylaxis Ordered?: Yes Types of VTE Prophylaxis: TEDS Knee High Location of Applied Device: Bilateral Lower Extremeties - VTE Diagnosis Confirmed Treatment or plan recommended: Continue Current Treatment
--- NOTE | 2018-08-15 08:19 | H&P/Discharge Summary ---
General - General Admission date:: 08/14/18 Discharge date: 08/15/18 *Admission Date: 08/14/18 *Chief complaint: Dyspnea *History of present illness: 83-year-old white female, long-term resident of a local prison who suffers from chronic edema, chronic systolic and diastolic CHF and morbid obesity with BMI greater than 60, who we have treated for a mild CHF exacerbation as an outpatient over the past for 5 days at the prison with Lasix and a Stringer catheter but she has failed to improve. She brought to the emergency department last night with dyspnea, worsening O2 saturations and swelling of her left side. Please refer to ER note for details. She was found to have elevated BNP, and evidence of CHF exacerbation on chest x-ray. She was given a dose of intravenous Lasix in the ER and transferred to the floor. Please see hospital course below for details. [facility] History I have reviewed the patient's past medical history: Yes Medical History: Reports:: Atrial Fibrillation, Cancer (Skin cancer), Congestive Heart Failure, Chronic Obstructive Pulmonary Disease (COPD), Deep Vein Thrombosis, Hyperlipidemia, Hypertension Denies:: Diabetes Mellitus Type 1, Diabetes Mellitus Type 2, Internal Pacemaker, MRSA *Have you ever received a pneumonia vaccine?: Yes *Have you received a flu vaccine this season?: Yes Other Medical History: Reports: Cataracts, Glaucoma, Thyroid Disease Other Surgeries: Yes: Cholecystectomy, Skin Cancer Excision, Other (GALL BLADDER REMOVED). No: Pacemaker Amputation: No Fractures: Yes (right ankle) - *Social History Smoking Status: Never smoker Tobacco Type: cigarettes # Packs/Day (cigarettes): 1 Smoking End Date: STOPPED 8 YEARS AGO Alcohol Intake: never Alcohol Intake Frequency:: a few times a week Substance Use Type: denies use *Occupational Status:: retired Housing: house Household Members: family *Travel in the last 8 weeks: None - Psychiatric History Expresses thoughts of harming self/others: None Suicide Plan Description: No Plan Family Hx:: Cancer, Hyperlipidemia, Hypertension Review of Systems - Review of Systems Review of systems:: pertinent systems reviewed and negative unless documented below - Constitutional Denies anorexia - Eyes Denies blind spots - ENT Denies abnormal hearing - *Cardiovascular Reports shortness of breath, Reports shortness of breath with activity, Reports leg swelling, Denies chest pain, Denies irregular heart rhythm - *Respiratory Denies change in phlegm color - *Gastrointestinal Denies abdominal pain Exam Vital signs and Labs for Last 24 Hours: Temp Pulse Resp BP Pulse Ox 98.2 F 83 20 105/54 L 93 L 08/15/18 07:28 08/15/18 07:28 08/15/18 07:28 08/15/18 07:28 08/15/18 07:28 Laboratory Results - last 24 hr 08/14/18 13:05: WBC 5.9, RBC 3.22 L, Hgb 9.5 L, Hct 31.7 L, MCV 98.3, MCH 29.6, MCHC 30.1 L, RDW 16.5, Plt Count 139 L, MPV 8.3, Neut % (Auto) 74.1, Lymph % (Auto) 18.3, [place] % (Auto) 5.7, Eos % (Auto) 1.7, Baso % (Auto) 0.3, Neut # (Auto) 4.4, Lymph # (Auto) 1.1, [place] # (Auto) 0.3, Eos # (Auto) 0.1, Baso # (Auto) 0.0 08/14/18 13:05: Sodium 143, Potassium 4.6, Chloride 105, Carbon Dioxide 36 H, Anion Gap 6.6, BUN 53 H, Creatinine 2.03 H, Estimated Creat Clear 20, Estimated GFR 24 L, Est GFR ( Amer) 28 L, Glucose 107 H, Calcium 8.8, Troponin I < 0.02 08/14/18 13:05: B-Natriuretic Peptide 913 H 08/14/18 13:05: Lactate 0.7 08/14/18 13:05: TSH 4.44 H D, Free T4 Index 2.1 L, Thyroxine (T4) 6.3, T3 Uptake 34 08/14/18 17:12: Troponin I < 0.02 08/15/18 05:44: Sodium 144, Potassium 5.2 H, Chloride 104, Carbon Dioxide 35 H, Anion Gap 10.2, BUN 53 H, Creatinine 1.87 H, Estimated Creat Clear 22, Estimated GFR 26 L, Est GFR ( Amer) 31 L, Glucose 148 H D, Calcium 9.1 I & O for Last 24 hours: Intake & Output 08/12/18 08/13/18 08/14/18 08/15/18 11:59 11:59 11:59 11:59 Intake Total 360 / 360 Output Total 1200 / 1200 Balance -840 / -840 Weight 376 lb 2 oz Narrative: Patient is awake, alert, oriented x3. Talkative and pleasant. Oropharynx clear. She has no JVD but her obesity limits her exam accuracy. Lungs have crackles in both anterior lung bases, but fairly good air entry. She is comfortable on 4 L of nasal cannula oxygen. Heart regular, again obesity limits accuracy of exam. Her abdomen and thorax have slight increased swelling on the low side of her abdomen and her left breast. This is actually improved over my exam of her last week at the prison. Her legs are swollen with 2+ edema to mid araiza but this seems to be her baseline. Neurologic exam shows no cranial nerve asymmetry. She is able to move her arms and legs well. Stringer catheter draining clear yellow urine. Hospital Course Hospital Course: Patient was admitted. Given intravenous Lasix and had a brisk diuretic response with improvement in her desaturations and reduction in O2 supplementation needs. She felt better and her dyspnea symptoms resolved. This morning she was improved as noted on the exam portion of the H&P, and interestingly her renal function had improved with Lasix administration and improved volume status. Plan will be to give another dose of IV Lasix this morning and transfer back to prison to continue her current medications. We will check renal function tomorrow, continue O2 saturation monitoring and oxygen therapy. Stringer catheter will remain in place because of need for accurate ins and outs monitoring and mobility help. She will continue antibiotics and diuretics as prescribed. Plan we will continue to respect her DNR status. Please note that tomorrow she needs a CBC/BMP. Results Labs on day of discharge: Labs from last 24 hours 08/15/18 08/14/18 08/14/18 05:44 17:12 13:05 WBC RBC Hgb Hct MCV MCH MCHC RDW Plt Count MPV Neut % (Auto) Lymph % (Auto) [place] % (Auto) Eos % (Auto) Baso % (Auto) Neut # (Auto) Lymph # (Auto) [place] # (Auto) Eos # (Auto) Baso # (Auto) Sodium 144 Potassium 5.2 H Chloride 104 Carbon Dioxide 35 H Anion Gap 10.2 BUN 53 H Creatinine 1.87 H Estimated Creat Clear 22 Estimated GFR 26 L Est GFR ( Amer) 31 L Glucose 148 H D Lactate Calcium 9.1 Troponin I < 0.02 B-Natriuretic Peptide TSH 4.44 H D Free T4 Index 2.1 L Thyroxine (T4) 6.3 T3 Uptake 34 08/14/18 08/14/18 08/14/18 13:05 13:05 13:05 WBC RBC Hgb Hct MCV MCH MCHC RDW Plt Count MPV Neut % (Auto) Lymph % (Auto) [place] % (Auto) Eos % (Auto) Baso % (Auto) Neut # (Auto) Lymph # (Auto) [place] # (Auto) Eos # (Auto) Baso # (Auto) Sodium 143 Potassium 4.6 Chloride 105 Carbon Dioxide 36 H Anion Gap 6.6 BUN 53 H Creatinine 2.03 H Estimated Creat Clear 20 Estimated GFR 24 L Est GFR ( Amer) 28 L Glucose 107 H Lactate 0.7 Calcium 8.8 Troponin I < 0.02 B-Natriuretic Peptide 913 H TSH Free T4 Index Thyroxine (T4) T3 Uptake 08/14/18 13:05 WBC 5.9 RBC 3.22 L Hgb 9.5 L Hct 31.7 L MCV 98.3 MCH 29.6 MCHC 30.1 L RDW 16.5 Plt Count 139 L MPV 8.3 Neut % (Auto) 74.1 Lymph % (Auto) 18.3 [place] % (Auto) 5.7 Eos % (Auto) 1.7 Baso % (Auto) 0.3 Neut # (Auto) 4.4 Lymph # (Auto) 1.1 [place] # (Auto) 0.3 Eos # (Auto) 0.1 Baso # (Auto) 0.0 Sodium Potassium Chloride Carbon Dioxide Anion Gap BUN Creatinine Estimated Creat Clear Estimated GFR Est GFR ( Amer) Glucose Lactate Calcium Troponin I B-Natriuretic Peptide TSH Free T4 Index Thyroxine (T4) T3 Uptake DS: Diagnosis - Discharge Diagnosis (1) Acute kidney injury Status: Acute Problem details: Acute on chronic kidney injury. Improving with improved volume status (2) Morbid obesity with BMI of 60.0-69.9, adult Status: Acute Problem details: Complicates all aspects of her care (3) Anasarca Status: Acute Problem details: Secondary to CHF. Improving with IV Lasix (4) Hypoxia Status: Chronic Problem details: Improving with volume status improvement (5) Anemia Status: Acute Problem details: Secondary to chronic disease (6) Diastolic CHF, acute on chronic Status: Acute Problem details: Acute exacerbation improving with improved volume status (7) Major depression Status: Chronic Problem details: Complicates aspects of her care Discharge Medications - Medications for Discharge Home Medication List at Discharge: No Action albuterol sulfate 2.5 mg/3 mL (0.083 %) solution for nebulization 2.5 mg INHALATION Q6HP PRN #3 ml PRN Reason: Shortness Of Breath levothyroxine 25 mcg tablet 25 mcg PO DAILY #30 tab fluoxetine 40 mg capsule 40 mg PO DAILY #30 cap pantoprazole 40 mg tablet,delayed release 40 mg PO DAILY simvastatin 20 mg tablet 20 mg PO HS #90 tab Furosemide [Lasix 40mg tab] 40 mg PO DAILY Gabapentin [Gabapentin 300mg Cap] 300 mg PO BID Metoprolol Tartrate [Lopressor 25mg tablet] 12.5 mg PO BID Budesonide [Pulmicort 0.5mg/2mL neb] 2 ml IH BID cephALEXin [Keflex 500mg Cap] 500 mg PO TID Sacubitril/Valsartan [Entresto 24 mg-26 mg Tablet] 1 each PO BID Acetaminophen [Acetaminophen 325mg tab] 650 mg PO Q6HP PRN PRN Reason: As Needed For Fever Or Pain Disposition Disposition: Xfer SNF
== END 2018-08-15 11:44 ==
LOC: ER 12:26 → 2ND 12:26
PROVIDERS: ADMIT Emergency Medicine; ATTEND Internal Medicine Adolescent Medicine
DX: I50.20 Unspecified systolic (congestive) heart failure; N28.89 Other specified disorders of kidney and ureter; F32.9 Major depressive disorder, single episode, unspecified; R09.02 Hypoxemia; D64.9 Anemia, unspecified; Z86.718 Personal history of other venous thrombosis and embolism; R06.02 Shortness of breath; I11.0 Hypertensive heart disease with heart failure; R60.1 Generalized edema; M79.89 Other specified soft tissue disorders; Z68.44 Body mass index [BMI] 60.0-69.9, adult; E66.01 Morbid (severe) obesity due to excess calories; Z86.79 Personal history of other diseases of the circulatory system; N63.20 Unspecified lump in the left breast, unspecified quadrant; E78.5 Hyperlipidemia, unspecified; I50.33 Acute on chronic diastolic (congestive) heart failure; Z88.6 Allergy status to analgesic agent
CPT/HCPCS: 36415; 71010; 71045; 71250; 80048; 83605; 83880; 84436; 84443; 84479; 84484; 85025; 87040; 93005; 93306; 94640; 94761; 96365; 99285; G0378; J1956; J3370; Q9957

== ENCOUNTER → 2018-10-11 12:41 | Outpatient (POV) | payer MEDICARE, MEDICAID, SELFPAY | PROVIDERS: Visit Provider Dermatology | DX: Z00.00 Encounter for general adult medical examination without abnormal findings (principal) ==

== ENCOUNTER → 2018-12-18 17:47 | Outpatient (CLI) | payer MEDICARE, MEDICAID, SELFPAY | PROVIDERS: PCP Internal Medicine Adolescent Medicine; Visit Provider Internal Medicine Adolescent Medicine | DX: R05 Cough (principal); R09.81 Nasal congestion | CPT/HCPCS: 87070; 87077; 87186; 87205 ==

== ENCOUNTER → 2019-07-20 13:20 | Outpatient (CLI) | payer MEDICARE, MEDICAID, SELFPAY ==
--- NOTE | 2019-07-20 13:29 | CT_ITS ---
PROCEDURE: CT CHEST WO CON CLINICAL INDICATION: SOA, COMPARISON: CHESTWO CT chest wo con from 08/14/2018 TECHNIQUE: Axial images obtained with sagittal and coronal reformats. All CT scans at the facility use one or more dose reduction, viz: automated exposure control, ma/kV adjustment per patient size (including targeted exams where dose is matched to indication, i.e. head), or iterative reconstruction technique. FINDINGS: HEART: There is cardiomegaly with coronary arterial calcifications and there is a small pericardial effusion. There is asymmetrical enlargement of the left thyroid lobe with 2.2 x 2.9 centimeter hypodense nodule again noted not significantly changed. MEDIASTINAL AND HILAR STRUCTURES: There is mild mediastinal lymphadenopathy. Noncontrast exam makes assessment for hilar lymphadenopathy difficult. Interval increase in size of a left prevascular space lymph node now measuring 1.1 x 1.9 centimeters. This was approximately 0.9 x 1.5 centimeters. Other mediastinal lymph nodes are not definitely changed. There is a calcified granuloma in the right upper lobe and in the left lower lobe. There are ground-glass opacities in both lung durant appearing increased over the interval. There is continued consolidation of the left lower lobe. Bilateral pleural effusions left greater than right are again noted not significantly changed. Active pneumonia pulmonary edema and/or atelectasis would have to be considered. An indeterminate pulmonary nodule proximally 4.2 millimeters is seen in the right base image 38 series 3 appearing larger than on the previous exam. Active inflammatory or neoplastic lesion would have to be considered. 3-4 millimeter nodule is seen in the lateral left mid lung field image 31 series 3 not present previously. A 4 millimeter nodule in the right lung base image 41 series 3 is not definitely changed. AORTA: No acute finding. No thoracic aortic aneurysm or dissection evident BONY STRUCTURES: No acute bony abnormalities apparent. UPPER ABDOMEN: There postsurgical changes from cholecystectomy. ADDITIONAL FINDINGS: No other significant abnormalities. IMPRESSION: Continued ground-glass opacities both lung durant increased slightly over the interval with associated pleural effusions. Acute pneumonia is atelectasis and/or pulmonary edema would have to be considered. Nonspecific lymphadenopathy. A few indeterminate pulmonary nodules. Based on Fleischner society criteria optional 12 month follow-up exam would be indicated. Cardiomegaly with pericardial effusion and coronary calcifications. Dictated by: [employer] 07/20/2019 14:45 Electronically signed by Rubio [employer] in [place] 07/20/2019 14:45
== END ==
PROVIDERS: PCP Internal Medicine Adolescent Medicine; Visit Provider Internal Medicine Adolescent Medicine
DX: R06.02 Shortness of breath (principal)
CPT/HCPCS: 71250

== ENCOUNTER → 2019-07-21 08:45 | Outpatient (CLI) | payer MEDICARE, MEDICAID, SELFPAY ==
[2019-07-21 08:59] LABS: Basophils % 0.4 % (0.1-2.0); Eosinophils % 1.3 % (0.1-12.0); Hematocrit 31.6 % (37.0-47.0); Hemoglobin 9.3 g/dL (12.2-16.2); Lymphocytes # 0.7 K/mm3 (0.7-4.5); Lymphocytes % 23.4 % (10-50); Mean Corpuscular HGB Conc 29.5 g/dL (31.8-35.4); Mean Corpuscular Hemoglobin 29.1 pg (27.0-31.2); Mean Corpuscular Volume 98.6 fl (81-99); Mean Platelet Volume 8.9 fl (7.4-10.4); Monocytes # 0.1 K/mm3 (0.1-1.0); Monocytes % 5.2 % (1.7-9.3); Neutrophils % 69.8 % (37.0-80.0); Platelet Count 96 K/mm3 (142-424); Red Blood Count 3.21 M/mm3 (4.20-5.40); Red Cell Distribution Width 15.1 % (11.5-17.5); White Blood Count 2.8 K/mm3 (4.8-10.8)
[2019-07-21 09:16] LABS: D-Dimer 150 ng/mL (0-400)
[2019-07-21 09:24] LABS: Blood Urea Nitrogen 41 mg/dL (7-18); Calcium 8.9 mg/dL (8.5-10.1); Chloride 101 mmol/L (98-107); Creatinine,Serum 1.89 mg/dL (0.55-1.02); Estimated Glomerular Filt Rate 25 ml/min (>60); GFR (African American) 31 ML/MIN (>60); Glucose 149 mg/dL (74-106); Potassium 4.4 mmoL/L (3.5-5.1); Sodium 145 mmol/L (136-145)
[2019-07-21 09:31] LABS: Anion Gap 2.4 mEq/L (5-15)
[2019-07-21 09:59] LABS: Carbon Dioxide 46 mmol/L (21.0-32.0)
== END ==
PROVIDERS: Visit Provider Internal Medicine Adolescent Medicine
DX: I50.32 Chronic diastolic (congestive) heart failure (principal)
CPT/HCPCS: 36415; 80048; 85025; 85378

== ENCOUNTER → 2019-07-26 13:32 | Outpatient (CLI) | payer MEDICARE, MEDICAID, SELFPAY ==
[2019-07-26 14:09] LABS: Basophils % 0.4 % (0.1-2.0); Eosinophils # 0.3 K/mm3 (0.0-0.4); Eosinophils % 4.3 % (0.1-12.0); Hematocrit 31.7 % (37.0-47.0); Hemoglobin 9.6 g/dL (12.2-16.2); Lymphocytes # 0.8 K/mm3 (0.7-4.5); Lymphocytes % 14.1 % (10-50); Mean Corpuscular HGB Conc 30.4 g/dL (31.8-35.4); Mean Corpuscular Hemoglobin 28.8 pg (27.0-31.2); Mean Corpuscular Volume 94.8 fl (81-99); Mean Platelet Volume 8.8 fl (7.4-10.4); Monocytes # 0.3 K/mm3 (0.1-1.0); Monocytes % 4.9 % (1.7-9.3); Neutrophils # 4.5 K/mm3 (1.8-7.8); Neutrophils % 76.3 % (37.0-80.0); Platelet Count 116 K/mm3 (142-424); Red Blood Count 3.35 M/mm3 (4.20-5.40); Red Cell Distribution Width 15.9 % (11.5-17.5); White Blood Count 5.9 K/mm3 (4.8-10.8)
== END ==
PROVIDERS: Visit Provider Internal Medicine Adolescent Medicine
DX: D64.9 Anemia, unspecified (principal)
CPT/HCPCS: 85025

== ENCOUNTER → 2019-08-21 12:41 | Outpatient (CLI) | payer MEDICARE, MEDICAID, SELFPAY ==
[2019-08-21 13:14] LABS: Basophils % 0.6 % (0.1-2.0); Eosinophils # 0.1 K/mm3 (0.0-0.4); Eosinophils % 3.1 % (0.1-12.0); Hemoglobin 9.2 g/dL (12.2-16.2); Lymphocytes # 0.7 K/mm3 (0.7-4.5); Lymphocytes % 19.6 % (10-50); Mean Corpuscular HGB Conc 29.5 g/dL (31.8-35.4); Mean Corpuscular Hemoglobin 28.2 pg (27.0-31.2); Mean Corpuscular Volume 95.4 fl (81-99); Mean Platelet Volume 8.4 fl (7.4-10.4); Monocytes # 0.2 K/mm3 (0.1-1.0); Monocytes % 4.7 % (1.7-9.3); Neutrophils # 2.6 K/mm3 (1.8-7.8); Neutrophils % 71.9 % (37.0-80.0); Platelet Count 87 K/mm3 (142-424); Red Blood Count 3.25 M/mm3 (4.20-5.40); Red Cell Distribution Width 16.2 % (11.5-17.5); White Blood Count 3.6 K/mm3 (4.8-10.8)
== END ==
PROVIDERS: Visit Provider Internal Medicine Adolescent Medicine
DX: J18.0 Bronchopneumonia, unspecified organism (principal)
CPT/HCPCS: 85025

== ENCOUNTER → 2020-01-22 20:13 | Outpatient (CLI) | payer MEDICARE, MEDICAID, SELFPAY | PROVIDERS: PCP Internal Medicine Adolescent Medicine; Visit Provider Internal Medicine Adolescent Medicine | DX: R55 Syncope and collapse (principal) | CPT/HCPCS: 93225; 93226 ==

== ENCOUNTER → 2020-11-05 09:24 | Outpatient (CLI) | payer MEDICARE, MEDICAID, SELFPAY ==
[2020-11-05 14:12] LABS: Basophils % 0.4 % (0.1-2.0); Eosinophils # 0.2 K/mm3 (0.0-0.4); Eosinophils % 3.4 % (0.1-12.0); Hematocrit 33.1 % (37.0-47.0); Hemoglobin 10.6 g/dL (12.2-16.2); Lymphocytes # 1.1 K/mm3 (0.7-4.5); Lymphocytes % 20.6 % (10-50); Mean Corpuscular HGB Conc 31.9 g/dL (31.8-35.4); Mean Corpuscular Hemoglobin 31.5 pg (27.0-31.2); Mean Corpuscular Volume 98.5 fl (81-99); Mean Platelet Volume 9.7 fl (7.4-10.4); Monocytes # 0.3 K/mm3 (0.1-1.0); Monocytes % 4.8 % (1.7-9.3); Neutrophils # 3.7 K/mm3 (1.8-7.8); Neutrophils % 70.7 % (37.0-80.0); Platelet Count 105 K/mm3 (142-424); Red Blood Count 3.36 M/mm3 (4.20-5.40); Red Cell Distribution Width 15.5 % (11.5-17.5); White Blood Count 5.2 K/mm3 (4.8-10.8)
[2020-11-05 14:15] LABS: Alanine Aminotransferase 10 U/L (12-78); Albumin Level 3.2 g/dl (3.5-5.0); Albumin/Globulin Ratio 1.3 (1.1-1.8); Alkaline Phosphatase 75 U/L (38-126); Aspartate Amino Transferase 19 U/L (14-36); Bilirubin,Total 0.3 mg/dl (0.2-1.3); Blood Urea Nitrogen 45 mg/dl (7-17); Calcium 9.3 mg/dl (8.4-10.2); Chloride 91 mmol/L (98-107); Chol/HDL Ratio 3.4 (1-3.5); Cholesterol 118 mg/dl (140-200); Estimated Glomerular Filt Rate 47 ml/min (>60); GFR (African American) 57 ML/MIN (>60); Globulin 2.5 g/dL (1.3-3.2); Glucose 113 mg/dl (74-100); HDL Cholesterol 35 mg/dl (40-60); Potassium 3.7 mmoL/L (3.5-5.1); Sodium 139 mmol/L (136-145); Total Protein,Serum 5.7 g/dl (6.3-8.2); Triglycerides 97 mg/dl (30-150); VLDL Cholesterol 19 mg/dL (0-40)
[2020-11-05 14:26] LABS: Direct LDL Cholesterol 65.09 mg/dL (100-129)
[2020-11-05 14:27] LABS: Anion Gap 6.7 mEq/L (5-15); Carbon Dioxide 45 mmol/L (22.0-30.0)
[2020-11-05 14:45] LABS: Thyroid Stimulating Hormone 3.16 uIU/mL (0.465-4.68)
== END ==
PROVIDERS: Visit Provider Nurse Practitioner Family
DX: E78.5 Hyperlipidemia, unspecified (principal); E03.9 Hypothyroidism, unspecified; I10 Essential (primary) hypertension
CPT/HCPCS: 36415; 80053; 80061; 84443; 85025

== ENCOUNTER → 2020-12-17 15:11 | Outpatient (POV) | payer MEDICARE, MEDICAID, SELFPAY | PROVIDERS: Visit Provider Dermatology | DX: Z00.00 Encounter for general adult medical examination without abnormal findings (principal) ==

== ENCOUNTER → 2021-04-08 13:57 | Outpatient (POV) | payer MEDICARE, MEDICAID, SELFPAY | PROVIDERS: Visit Provider Dermatology | DX: Z00.00 Encounter for general adult medical examination without abnormal findings (principal) ==